=== PATIENT | female | born 1975 | race African-American/Black ===

== ENCOUNTER 2016-10-12 21:37 | Emergency (ER) | payer OTHER ==
[~2016-10-12 21:37] MED LIST: ALBU0.63 NEB; AZIT250T PO; BENZ200C39 PO; PRED20TA PO
--- NOTE | 2016-10-12 22:42 | PHYS DOC ---
Past Medical History Past Medical History: Asthma, COPD, Diabetes-Type I, High Cholesterol, Hypertension Past Surgical History: No Surgical History Alcohol Use: None Drug Use: None Adult General Chief Complaint Chief Complaint: DYSPNEA/RESPIRATOY DISTRESS HPI HPI Patient is a 41 year old female who presents with cough, wheezing, shortness of breath. Patient reports for the past 2 days she has had productive cough, has been wheezing a lot, has been feeling somewhat short of breath. Similar to prior COPD exacerbations. Patient has been using her Combivent, Symbicort, albuterol at home with insufficient relief. She denies any pain, specifically no chest discomfort. No fever. Patient does report her grandchildren have been sick. Review of Systems Review of Systems Constitutional: Denies fever or chills Eyes: Denies change in visual acuity or eye pain HENT: Denies nasal congestion or sore throat Respiratory: Productive cough, shortness of breath, wheezing Cardiovascular: Denies chest pain GI: Denies abdominal pain, nausea, vomiting, bloody stools or diarrhea : Denies dysuria or hematuria Musculoskeletal: Denies back pain or joint pain Integument: Denies rash or skin lesions Neurologic: Denies headache, focal weakness or sensory changes Current Medications Current Medications Current Medications Medications (Trade) Dose Ordered Sig/Rock Start Time Stop Time Status Last Admin Dose Admin Albuterol/ Ipratropium (Duoneb) 6 ml 1X ONCE 10/12/16 23:00 10/12/16 23:01 DC 10/12/16 23:02 6 ML Benzonatate (Tessalon Perle) 100 mg 1X ONCE 10/12/16 23:00 10/12/16 23:01 DC 10/12/16 22:53 100 MG Prednisone (Prednisone) 60 mg 1X ONCE 10/12/16 23:00 10/12/16 23:01 DC 10/12/16 22:53 60 MG Allergies Allergies Allergies Coded Allergies Type Severity Reaction Last Updated Verified sulfamethoxazole Allergy Intermediate 07/12/16 No trimethoprim Allergy Intermediate 07/12/16 No Physical Exam Physical Exam Constitutional: Well developed, well nourished, no acute distress, non-toxic appearance HENT: Normocephalic, atraumatic, bilateral external ears normal Eyes: EOMI, conjunctiva normal, no discharge Neck: Normal range of motion, no stridor Cardiovascular: Heart rate normal, regular rhythm, no murmur Lungs & Thorax: Frequent cough, diffuse expiratory wheezing Abdomen: Bowel sounds normal, soft, non-distended, no TTP Skin: Warm, dry, no erythema, no rash Extremities: No obvious deformity, no edema Neurologic: Alert and oriented X 3, no gross deficits noted Psychologic: Affect normal, judgement normal, mood normal Current Patient Data Vital Signs Vital Signs Date Time Temp Pulse Resp B/P Pulse Ox O2 Delivery O2 Flow Rate FiO2 10/12/16 23:04 96 Room Air 10/12/16 22:46 100 124/65 10/12/16 21:47 98.4 22 98.4 Lab Values Laboratory Tests Test 10/12/16 22:45 Influenza Type A Antigen Negative (NEGATIVE) Influenza Type B Antigen Negative (NEGATIVE) EKG EKG EKG (my read): sinus rhythm, rate 82, borderline LAD, intervals wnl, nonspecific ST changes Radiology/Procedures Radiology/Procedures CXR (my read): No significant change from prior. Course & Med Decision Making Course & Med Decision Making Pertinent Labs and Imaging studies reviewed. (See chart for details) Patient is 41-year-old female who presents with cough, wheezing, shortness of breath. Apparent COPD exacerbation, likely brought on by viral respiratory infection. Will obtain chest x-ray, EKG to evaluate. Steroids, Tessalon, DuoNeb' s ordered for relief of symptoms. EKG and chest x-ray results as above. Discussed results with patient, who feels her breathing is much improved after the breathing treatments. Will discharge home with prescription for steroid burst, Tessalon, Combivent and albuterol nebulizer refills (per patient request) . Given instructions follow-up and return precautions. Dragon Disclaimer Dragon Disclaimer This electronic medical record was generated, in whole or in part, using a voice recognition dictation system. Departure Departure Impression: Primary Impression: COPD exacerbation Additional Impression: Viral respiratory infection Disposition: HOME, SELF-CARE Condition: IMPROVED Referrals: UNKNOWN PCP NAME (PCP) Patient Instructions: Chronic Obstructive Pulmonary Disease Exacerbation, Upper Respiratory Infection, Adult Additional Instructions: Thank you for allowing us to provide care today in the Emergency Department. Take the provided medication as directed. Schedule a follow up appointment with your primary care doctor and your goring cutter. Return promptly to the Emergency Department if you develop any new or concerning symptoms. Scripts Benzonatate (Tessalon Perle)100 Mg Capsule1 Cap PO TID PRN COUGH #21 CAP Prov:DOMINIK GANDHI MD 10/12/16 Ipratropium/Albuterol Sulfate (Combivent Respimat Inhal)4 Gm Aer.w.adap2 Inh IH QID #1 INHALER Prov:DOMINIK GANDHI MD 10/12/16 Albuterol Sulfate (Albuterol Sulfate Neb Soln)1.25 Mg/3 Ml Vial.neb1 Vial NEB Q6HRS PRN WHEEZING #75 ML Prov:DOMINIK GANDHI MD 10/12/16 Prednisone 20 Mg [id number] Mg PO DAILY 5 Days Prov:DOMINIK GANDHI MD 10/12/16 Problem Qualifiers DOMINIK GANDHI MD Oct 12, 2016 22:42
[2016-10-12 22:46] VITALS: BP 124/65
[2016-10-12] MEDS ORDERED: PREDNISONE 20 MG TABLET PO ONE (23:00)
[2016-10-12] MEDS ORDERED: BENZONATATE 100 MG CAPSULE. PO ONE (23:00)
[2016-10-12] MEDS ORDERED: IPRATRPIUM/ALBUTEROL 0.5/2.5MG 3 ML NEBU. NEB ONE (23:00)
[2016-10-12 23:11] LABS: OBC FLU VALID
[2016-10-12] MEDS ORDERED: ALBU1.25 NEB (23:35)
[2016-10-12] MEDS ORDERED: IPRA4AER IH (23:35)
[2016-10-12] MEDS ORDERED: PRED20TA PO (23:35)
[2016-10-12] MEDS ORDERED: BENZ100C PO (23:35)
--- NOTE | 2016-10-13 06:32 | EKG ---
[facility] [address] [place] [address] Test Date: 2016-10-12 Test Time: 22:53:24 Pat Name: AJ LAM Department: Room: Gender: F Reservation Clerk: : 1975 Requested By: DOMINIK GANDHI Order Number: [id number] Reading MD: Measurements Intervals [place] Rate: 82 P: 19 FL: 126 QRS: -2 QRSD: 96 T: 18 QT: 380 QTc: 447 Interpretive Statements SINUS RHYTHM LEFTWARD AXIS INCOMPLETE RIGHT BUNDLE BRANCH BLOCK RI6.01 Unconfirmed report No previous ECG available for comparison
--- NOTE | 2016-10-13 07:47 | RAD ---
EXAM: Chest 2 views. HISTORY: Cough and wheezing. COMPARISON: 07/12/2016. FINDINGS: Frontal and lateral views of the chest are obtained. Mild opacities in the right base may indicate superimposed densities or anteriorly infiltrate. There is no pneumothorax or pleural effusion. The heart is not enlarged. IMPRESSION: 1. Mild bibasilar opacities. Correlate clinically to exclude mild right lower lobe pneumonia.
== END 2016-10-12 23:45 | disposition home or self-care (01) ==
LOC: ER 21:37
DX: J44.1 Chronic obstructive pulmonary disease with (acute) exacerbation (principal); B34.9 Viral infection, unspecified; J45.909 Unspecified asthma, uncomplicated; E10.9 Type 1 diabetes mellitus without complications; I10 Essential (primary) hypertension; E78.00 Pure hypercholesterolemia, unspecified; Z79.899 Other long term (current) drug therapy; Z88.2 Allergy status to sulfonamides; Z88.1 Allergy status to other antibiotic agents
CPT/HCPCS: 71020; 87804; 93005; 94640; 99285; J7512; J7620

== ENCOUNTER 2016-10-28 20:05 | Emergency (ER) | payer OTHER ==
[~2016-10-28 20:05] MED LIST changes: +ALBU1.25 NEB; +BENZ100C PO; +IPRA4AER IH
[2016-10-28 20:24] VITALS: BP 128/74
[2016-10-28] MEDS ORDERED: IPRATRPIUM/ALBUTEROL 0.5/2.5MG 3 ML NEBU. NEB ONE (21:00)
--- NOTE | 2016-10-28 21:19 | PHYS DOC ---
Past Medical History Past Medical History: Asthma, COPD, Diabetes-Type II, High Cholesterol, Hypertension Past Surgical History: No Surgical History Smoking: Less than 1pk/day Alcohol Use: None Drug Use: None Adult General Chief Complaint Chief Complaint: COUGH HPI HPI Patient is a 41 year old female who presents with productive cough and shortness of breath for 5 days. She also has nasal congestion and sore throat. She denies fever, ear pain, vomiting, or diarrhea. She has a history of COPD. She has been using her albuterol inhaler, Combivent, and Symbicort at home as directed. She did receive a flu shot this season. [place] [facility] [place] Review of Systems Review of Systems Constitutional: Denies fever or chills. [] Eyes: Denies change in visual acuity, redness, or eye pain. [] HENT: Denies ear pain. Reports nasal congestion and sore throat. Respiratory: Reports productive cough and shortness of breath. Cardiovascular: Denies chest pain, palpitations or edema. [] GI: Denies abdominal pain, nausea, vomiting, bloody stools or diarrhea. [] : Denies dysuria, hematuria or urinary frequency. [] Musculoskeletal: Denies back pain or joint pain. [] Integument: Denies rash or skin lesions. [] Neurologic: Denies headache, focal weakness or sensory changes. [] Endocrine: Denies polyuria or polydipsia. [] Psych: Denies anxiety or depression. [] All systems reviewed and negative unless otherwise stated in the HPI. Current Medications Current Medications Current Medications Medications (Trade) Dose Ordered Sig/[facility] Start Time Stop Time Status Last Admin Dose Admin Albuterol/ Ipratropium (Duoneb) 3 ml 1X ONCE 10/28/16 21:00 10/28/16 21:01 DC 10/28/16 21:17 3 ML Allergies Allergies Allergies Coded Allergies Type Severity Reaction Last Updated Verified sulfamethoxazole Allergy Intermediate 07/12/16 No trimethoprim Allergy Intermediate 07/12/16 No Physical Exam Physical Exam Constitutional: Well developed, well nourished, no acute distress, non-toxic appearance. [] HENT: Normocephalic, atraumatic, bilateral external ears normal, oropharynx moist, no oral exudates, nose normal. Bilateral TMs without erythema or bulging. There is no posterior pharyngeal erythema or tonsillar edema. Bilateral nasal turbinates are swollen and erythematous. Eyes: PERRLA, EOMI, conjunctiva normal, no discharge. [] Neck: Normal range of motion, no tenderness, supple, no stridor. [] Cardiovascular: Heart rate regular rhythm, no murmur [] Lungs & Thorax: There are crackles in bilateral lung bases with expiratory wheezes diffusely. No respiratory distress. Skin: Warm, dry, no erythema, no rash. [] Neurologic: Alert and oriented X 3, normal motor function, normal sensory function, no focal deficits noted. [] Psychologic: Affect normal, judgement normal, mood normal. [] Current Patient Data Vital Signs Vital Signs Date Time Temp Pulse Resp B/P Pulse Ox O2 Delivery O2 Flow Rate FiO2 10/28/16 21:20 98 Room Air 10/28/16 20:24 98.7 102 24 98.7 EKG EKG [] Radiology/Procedures Radiology/Procedures PA and lateral chest x-ray reviewed and interpreted by myself with Dr. Amaro. There are no focal infiltrates, however there is diffuse infiltrate. Course & Med Decision Making Course & Med Decision Making Pertinent Labs and Imaging studies reviewed. (See chart for details) The patient is a 38-year-old female smoker with history of COPD who presents with productive cough and shortness of breath for 5 days. On exam, there are crackles in bilateral lung bases with diffuse expiratory wheezes. The patient is not in respiratory distress. Chest x-ray shows diffuse infiltrates without evidence of pneumonia. The patient received a DuoNeb treatment in the emergency department and reported improved breathing after the treatment. Reexamination does not reveal significant change in her lung sounds after the treatment. She is discharged home with prescription for azithromycin, prednisone, and Tessalon Perles. She is instructed to continue her home inhalers. Return precautions were discussed. She verbalizes understanding and agrees with plan. Dragon Disclaimer Dragon Disclaimer This electronic medical record was generated, in whole or in part, using a voice recognition dictation system. Departure Departure Impression: Primary Impression: COPD exacerbation Disposition: 01 HOME, SELF-CARE Condition: IMPROVED Referrals: UNKNOWN PCP NAME (PCP) Patient Instructions: Chronic Obstructive Pulmonary Disease Exacerbation, Easy- to-Read Additional Instructions: Your chest x-ray did not show any definite pneumonia. Please complete all the prescribed antibiotics and steroid, even if you are feeling better. Please continue to use your home inhalers as directed. Please follow-up with your primary care doctor within the next week. Return to the emergency department if you have increased shortness of breath or other new or concerning symptoms. Scripts Benzonatate 200 Mg Capsule1 Cap PO TID #30 CAP Prov:MARIANELA GARCIA 10/28/16 Prednisone 20 Mg Vkeidx70 Mg PO DAILY 5 Days Prov:MARIANELA GARCIA 10/28/16 Azithromycin (Zithromax)250 Mg Tablet1 Pkg PO UD #6 TAB Prov:MARIANELA GARCIA 10/28/16 MARIANELA GARCIA Oct 28, 2016 21:19
[2016-10-28] MEDS ORDERED: AZIT250T PO (21:50)
[2016-10-28] MEDS ORDERED: PRED20TA PO (21:50)
[2016-10-28] MEDS ORDERED: BENZ200C39 PO (21:50)
--- NOTE | 2016-10-29 07:54 | RAD ---
Indication cough and shortness of breath. Duration of symptoms 3 days. Frontal and lateral views of the chest were obtained. Comparison is made to an examination 16 days earlier. There is interstitial prominence in the lungs much of which is likely chronic. The appearance is similar to previous exams. (Mild interstitial edema or an inflammatory process, interstitial pneumonitis, cannot be entirely excluded). There is no consolidated pneumonia significant pleural fluid collection or pneumothorax. IMPRESSION: Mild diffuse interstitial prominence. See above discussion. No focal consolidated pneumonia seen
== END 2016-10-28 22:05 | disposition home or self-care (01) ==
LOC: ER 20:05
DX: J44.1 Chronic obstructive pulmonary disease with (acute) exacerbation (principal); E11.9 Type 2 diabetes mellitus without complications; E78.00 Pure hypercholesterolemia, unspecified; I10 Essential (primary) hypertension; J45.909 Unspecified asthma, uncomplicated; F17.200 Nicotine dependence, unspecified, uncomplicated; Z88.8 Allergy status to other drugs, medicaments and biological substances; Z88.2 Allergy status to sulfonamides
CPT/HCPCS: 71020; 94250; 94640; 99284; J7620

== ENCOUNTER 2016-11-28 13:45 | Inpatient (IN) | payer OTHER ==
[~2016-11-28] VITALS: Ht 167.6 cm; Wt 127.0 kg
--- NOTE | 2016-11-28 14:23 | PHYS DOC ---
Past Medical History Past Medical History: Asthma, COPD, Diabetes-Type II, High Cholesterol, Hypertension Past Surgical History: No Surgical History Alcohol Use: None Drug Use: None Adult General Chief Complaint Chief Complaint: COUGH HPI HPI Patient is a 41 year old female, with a history of asthma and COPD who continues to smoke, presents the emergency Department today with nonproductive cough, nasal congestion and sinus pressure and mild difficulty breathing for the past 2-3 days. Patient denies fevers, chills, myalgias or arthralgias. She reports she was on azithromycin within the past 30 days as well as steroids. She denies hospitalization or foreign travel within the past 90 days. Patient states last time she used her albuterol nebulizer was 10 AM this morning. Review of Systems Review of Systems Constitutional: Denies fever or chills [] Eyes: Denies change in visual acuity, redness, or eye pain [] HENT: Denies nasal congestion or sore throat [] Respiratory: Denies cough or shortness of breath [] Cardiovascular: No additional information not addressed in HPI [] GI: Denies abdominal pain, nausea, vomiting, bloody stools or diarrhea [] : Denies dysuria or hematuria [] Musculoskeletal: Denies back pain or joint pain [] Integument: Denies rash or skin lesions [] Neurologic: Denies headache, focal weakness or sensory changes [] Endocrine: Denies polyuria or polydipsia [] Current Medications Current Medications Current Medications Medications (Trade) Dose Ordered Sig/Rock Start Time Stop Time Status Last Admin Dose Admin Albuterol Sulfate (Ventolin Neb Soln) 10 mg 1X ONCE 11/28/16 15:15 11/28/16 15:16 UNV Albuterol/ Ipratropium (Duoneb) 3 ml 1X ONCE 11/28/16 14:30 11/28/16 14:31 DC 11/28/16 14:29 3 ML Prednisone (Prednisone) 50 mg 1X ONCE 11/28/16 14:30 11/28/16 14:31 DC 11/28/16 14:40 50 MG Sodium Chloride (Normal Saline Flush) 10 ml 1X ONCE 11/28/16 15:00 11/28/16 15:01 DC Allergies Allergies Allergies Coded Allergies Type Severity Reaction Last Updated Verified sulfamethoxazole Allergy Intermediate 07/12/16 No trimethoprim Allergy Intermediate 07/12/16 No Physical Exam Physical Exam Constitutional: Well developed, well nourished, mild distress, non-toxic appearance. Patient smells of tobacco smoke. HENT: Normocephalic, atraumatic, bilateral external ears normal, oropharynx moist, no oral exudates, nasal mucosa is inflamed and with a clear, tacky rhinorrhea. Eyes: PERRLA, EOMI, conjunctiva normal, no discharge. [] Neck: Normal range of motion, no tenderness, supple, no stridor. There is no cervical lymphadenopathy. Cardiovascular:Heart rate 92 with regular rhythm, no murmur. No JVD. PMI is not displaced. Lungs & Thorax: Patient exhibits mild-mod respiratory distress without respiratory fatigue. There is no posturing or sensory muscle use. Patient has bilateral coarse inspiratory and expiratory wheezing. Oxygen saturation is 94% on room air. Abdomen: Bowel sounds normal, soft, no tenderness, no masses, no pulsatile masses. [] Skin: Warm, dry, no erythema, no rash. [] Back: No tenderness, no CVA tenderness. [] Extremities: No tenderness, no cyanosis, no clubbing, ROM intact, no edema. Neurologic: Alert and oriented X 3, normal motor function, normal sensory function, no focal deficits noted. Psychologic: Affect normal, judgement normal, mood normal. [] Current Patient Data Vital Signs Vital Signs Date Time Temp Pulse Resp B/P Pulse Ox O2 Delivery O2 Flow Rate FiO2 11/28/16 14:29 94 Room Air 11/28/16 14:08 97.9 93 22 97.9 EKG EKG [] Radiology/Procedures Radiology/Procedures [] Course & Med Decision Making Course & Med Decision Making Patient received a DuoNeb nebulizer treatment here in the emergency department. She also received 50 mg of prednisone by mouth. Upon reevaluation of this patient, she exhibited increased respiratory effort and showed evidence of overall fatigue. I discussed with the patient admission to the hospital as I'm concerned that the patient would be right back here in the emergency department within a short period time patient verbalized understanding of this and agrees. In summary, patient is a 41-year-old female who continues to smoke with a well- established history of COPD. Patient has a nebulizer at home. She's been using every 6 hours without any improvement. She has been on steroids and antibiotics within the past 30 days. Patient has a high risk for return to this emergency department, or another emergency department within the next 24 hours due to her COPD. Dragon Disclaimer Dragon Disclaimer This electronic medical record was generated, in whole or in part, using a voice recognition dictation system. Departure Departure Impression: Primary Impression: COPD exacerbation Disposition: ADMITTED INPATIENT Condition: STABLE Referrals: UNKNOWN PCP NAME (PCP) HARRIS KOHLER Nov 28, 2016 14:23
[2016-11-28] MEDS ORDERED: predniSONE 10 MG TABLET PO ONE (14:30)
[2016-11-28] MEDS ORDERED: IPRATRPIUM/ALBUTEROL 0.5/2.5MG 3 ML NEBU. NEB ONE (14:30)
[2016-11-28] MEDS ORDERED: 0.9 % SODIUM CHLORIDE 10 ML DISP.SYRIN. IV ONE (15:00)
[2016-11-28] MEDS ORDERED: ALBUTEROL SULFATE 2.5 MG/3 ML NEBU. CONT NEB ONE (15:15)
[2016-11-28] MEDS ORDERED: DEXTROSE 50% 25 GM / 50ML DISP.SYRIN. IV PRN (15:30)
[2016-11-28] MEDS ORDERED: PROMETH/CODEINE 6.25/10MG 5 ML SYRUP. PO PRN (15:30)
[2016-11-28] MEDS ORDERED: ALBUTEROL SULFATE 2.5 MG/3 ML NEBU. NEB PRN (15:30)
[2016-11-28] MEDS ORDERED: hydrALAZINE 20 MG/ML VIAL. IVP PRN (15:30)
[2016-11-28 15:35] LABS: BASO # 0.1 x10^3/uL (0.0-0.2); BASO % 1 % (0-3); EOS % 1 % (0-3); HEMATOCRIT 39.7 % (36.0-47.0); HEMOGLOBIN 13.5 g/dL (12.0-15.5); LYMPH # 4.2 x10^3/uL (1.0-4.8); LYMPH % 40 % (24-48); MEAN CORPUSCULAR HEMOGLOBIN 30 pg (25-35); MEAN CORPUSCULAR HGB CONC 34 g/dL (31-37); MEAN CORPUSCULAR VOLUME 89 fL (79-100); MONO % 7 % (0-9); NEUT % 51 % (31-73); PLATELET COUNT 311 x10^3/uL (140-400); RED BLOOD COUNT 4.48 x10^6/uL (3.50-5.40); RED CELL DISTRIBUTION WIDTH 14.3 % (11.5-14.5); WHITE BLOOD COUNT 10.5 x10^3/uL (4.0-11.0)
--- NOTE | 2016-11-28 15:36 | PDOC1 ---
History and Physical Date of Admission Date of Admission 11/28/16 Identification/Chief Complaint Chief Complaint cough, sob Problems: Source Source: Chart review, Patient History of Present Illness History of Present Illness HPI HPI Patient is a 41 year old female, with a history of asthma and COPD who continues to smoke, presents the emergency Department today with cough and sob for 2 days. Pt usually goes to [facility] for PCP, but comes to ER here every month for sob. She said her grandson is sick at home. SHe has been coughing with yellow sputum , sob for 2 days. no fever, chills, N/V, diarrhea. + chest pain with cough. She was on kapil and prednisone last month. use regular insulin only 14u daily. Past Medical History Cardiovascular: HTN Pulmonary: COPD Endocrine: Diabetes Past Surgical History Past Surgical History: No pertinent history Family History Family History: No Significant Social History Smoke: 1 pack per day ALCOHOL: occassional Drugs: None Current Problem List Problem List Problems Medical Problems: (1) COPD exacerbation Status: Acute Current Medications Current Medications Current Medications Medications (Trade) Dose Ordered Sig/Rock Start Time Stop Time Status Last Admin Dose Admin Albuterol Sulfate (Ventolin Neb Soln) 2.5 mg PRN Q2HR PRN 11/28/16 15:30 Albuterol/ Ipratropium (Duoneb) 3 ml RTQID 11/28/16 16:00 Enoxaparin Sodium (Lovenox 40mg Syringe) 40 mg DAILY 11/29/16 09:00 Famotidine (Pepcid) 20 mg BID 11/28/16 21:00 Levofloxacin/ Dextrose (LEVAQUIN 750mg PREMIX) 150 ml @ 100 mls/hr DAILY16 11/28/16 16:00 Methylprednisolone Sodium Succinate (Solu-Medrol 125mg Vial) 62.5 mg BID 11/28/16 21:00 11/28/16 21:00 DC Methylprednisolone Sodium Succinate 60 mg 60 mg TID 11/28/16 21:00 Prednisone (Prednisone) 50 mg 1X ONCE 11/28/16 14:30 11/28/16 14:31 DC 11/28/16 14:40 50 MG Sodium Chloride (Normal Saline Flush) 10 ml 1X ONCE 11/28/16 15:00 11/28/16 15:01 DC Allergies Allergies Allergies Coded Allergies Type Severity Reaction Last Updated Verified sulfamethoxazole Allergy Intermediate 07/12/16 No trimethoprim Allergy Intermediate 07/12/16 No ROS Review of System CONSTITUTIONAL: No fever or chills EYES: No recent changes SKIN: No rash or itching CARDIOVASCULAR: No chest pain, syncope, palpitations, or edema RESPIRATORY: No SOB or cough GASTROINTESTINAL: No nausea, vomiting or abdominal pain NEUROLOGICAL: No headaches or weakness ENDOCRINE: No cold or heat intolerance GENITOURINARY: No urgency or frequency of urination MUSCULOSKELETAL: No back pain or joint pain LYMPHATICS: No enlarged lymph nodes PSYCHIATRIC: No anxiety or depression Physical Exam Physical Exam GEN.: No apparent distress. Alert and oriented. HEENT: Head is normocephalic, atraumatic NECK: Supple. LUNGS: bl rhonchis with diffuse mild wheezing HEART: RRR, S1, S2 present. Peripheral pulses intact ABDOMEN: Soft, nontender. Positive bowel sounds. EXTREMITIES: Without any cyanosis. NEUROLOGIC: Normal speech, normal tone PSYCHIATRIC: Normal affect, normal mood. SKIN: No ulcerations Vitals Vitals Vital Signs Date Time Temp Pulse Resp B/P Pulse Ox O2 Delivery O2 Flow Rate FiO2 11/28/16 15:28 96 Room Air 11/28/16 14:08 97.9 93 22 97.9 VTE Prophylaxis Ordered VTE Prophylaxis Devices: Yes VTE Pharmacological Prophylaxi: Yes Assessment/Plan Assessment/Plan 1. copd exacerbation 2. bronchitis 3. dm2 4. htn 5.hld 6. tobacossim 7. morbid obesity plan: pulm consult labs , cxr pending add solumedrol tid, levaquin, duoneb check sputum cx need home meds add levemir 20u qhs, aspart 6u tid, ssi for now dvt, gi ppx ALYSIA LEONARD MD Nov 28, 2016 15:36
[2016-11-28] MEDS ORDERED: ONDANSETRON PF 4 MG/2 ML VIAL. IV PRN (15:45)
[2016-11-28] MEDS ORDERED: ACETAMINOPHEN 325 MG TABLET. PO PRN (15:45)
[2016-11-28] MEDS ORDERED: traMADol 50 MG TABLET PO PRN (15:45)
[2016-11-28 15:47] LABS: CALCIUM 8.6 mg/dL (8.5-10.1); CREATININE 0.9 mg/dL (0.6-1.0); GFR 82.7; POTASSIUM 3.5 mmol/L (3.5-5.1)
[2016-11-28 15:53] LABS: ALBUMIN 3.1 g/dL (3.4-5.0); ALBUMIN/GLOBULIN RATIO 0.8 (1.0-1.7); TOTAL BILIRUBIN 0.3 mg/dL (0.2-1.0); TOTAL PROTEIN 6.8 g/dL (6.4-8.2)
[2016-11-28] MEDS: INSULIN ASPART 300 UNITS/3 ML INSULN.PEN SQ SCH ×2 (16:30→17:00)
[2016-11-28 17:10] VITALS: BP 129/62
[2016-11-28] MEDS ORDERED: IPRATRPIUM/ALBUTEROL 0.5/2.5MG 3 ML NEBU. NEB SCH (18:00)
[2016-11-28] MEDS ORDERED: METF-620 PO (18:43)
[2016-11-28] MEDS ORDERED: AMLO10TA2 PO (18:43)
[2016-11-28] MEDS ORDERED: INSU100I27 SQ (18:43)
[2016-11-28] MEDS ORDERED: LISI-338 PO (18:43)
[2016-11-28] MEDS ORDERED: POTA10TA12 PO (18:43)
[2016-11-28] MEDS ORDERED: FURO20TA3 PO (18:43)
--- NOTE | 2016-11-28 18:56 | ACF ---
Admission Forms Criteria COPD Clinical Indications for Admission to Inpatient Care (Place 'X' for any and all applicable criteria): Admission is indicated for ANY ONE of the following (1)(2)(3): [X]I. Acute exacerbation by high-risk comorbidity (e.g., pneumonia, dysrhythmia, heart failure, pleural effusion, pneumothorax) or severe underlying COPD (e.g., steroid dependent) [ ]II. Inpatient admission required rather than observation care (see Chronic Obstructive Pulmonary Disease: Observation Care) because of ANY ONE of the following: [ ]a) New or pre-existing signs or symptoms of COPD (eg, dyspnea or Tachypnea at rest or with minimal activity) that persist despite outpatient and observation care treatment [ ]b) New-onset hypoxemia (room air SaO2 less than 90%, PO2 less than 60 mm Hg (8.0 kPa)) that persists despite outpatient and observation care treatment [ ]c) Worsening of pre-existing hypoxemia (eg, new or increased requirement for supplemental oxygen to maintain oxygenation at baseline level) that persists despite outpatient and observation care treatment, with oxygen treatment needs performable only in acute inpatient setting [ ]d) Hypercarbia (PCO2 greater than 40 mm Hg (5.3 kPa))-induced respiratory acidosis (pH less than 7.35) that persists despite outpatient and observation care treatment [ ]e) Supplemental oxygen or respiratory treatments for over 24 hours that are performable only in acute inpatient setting [ ]f) Chest tube placement with active evacuation (e.g., suction, drainage) (5) [ ]g) Other condition, treatment or monitoring requiring inpatient admission [ ]III. Planned invasive surgical or diagnostic procedures requiring acute- care hospitalization [ ]IV. Acute respiratory failure (e.g., uncompensated hypercarbia, severe hypoxemia) [ ]V. Severe comorbid condition (e.g., severe steroid myopathy, acute vertebral fracture) that has acutely worsened pulmonary function [ ]. Confusion state, lethargy, obtundation, stupor or coma Extended stay beyond goal length of stay may be needed for (31)(32): [ ]a ) Respiratory Failure. [ ]b) Severe or persisting hypoxemia or hypercarbia [ ]c) Severe or persistent dyspnea [ ]d) Comorbidities (e.g. chronic heart failure, atrial fibrillation with rapid response, pneumonia) [ ]e) Malnutrition The original [facility] content created by [facility] has been revised. The portions of the content which have been revised are identified through the use of italic text or in bold, and [facility] has neither reviewed nor approved the modified material. All other unmodified content is copyright [facility]. Please see references footnoted in the original [facility] edition 2016 Admission Criteria Met?: Yes LAURIE MCKEON Nov 28, 2016 18:56
[2016-11-28] MEDS: IPRATRPIUM/ALBUTEROL 0.5/2.5MG 3 ML NEBU. NEB SCH (20:41)
[2016-11-28] MEDS ORDERED: methylPREDNISolone SOD SUCC PF 125 MG/2 ML VIAL. IV SCH (21:00)
[2016-11-28] MEDS ORDERED: INSULIN DETEMIR 300 UNITS/3 ML INSULN.PEN. SQ SCH (21:00)
[2016-11-28] MEDS: FAMOTIDINE 20 MG TABLET. PO SCH (21:12)
[2016-11-28] MEDS: methylPREDNISolone SOD SUCC PF 125 MG/2 ML VIAL. IV SCH (21:18)
[2016-11-28 23:23] VITALS: BP 129/66
[2016-11-29 03:58] LABS: BASO % 0 % (0-3); EOS % 0 % (0-3); LYMPH # 1.2 x10^3/uL (1.0-4.8); LYMPH % 10 % (24-48); MEAN CORPUSCULAR HEMOGLOBIN 30 pg (25-35); MEAN CORPUSCULAR HGB CONC 33 g/dL (31-37); MEAN CORPUSCULAR VOLUME 90 fL (79-100); MONO % 1 % (0-9); NEUT % 89 % (31-73); PLATELET COUNT 299 x10^3/uL (140-400); RED BLOOD COUNT 4.34 x10^6/uL (3.50-5.40); RED CELL DISTRIBUTION WIDTH 14.2 % (11.5-14.5); WHITE BLOOD COUNT 12.5 x10^3/uL (4.0-11.0)
[2016-11-29 04:12] LABS: CALCIUM 8.9 mg/dL (8.5-10.1); CREATININE 1.1 mg/dL (0.6-1.0); GFR 65.6; POTASSIUM 4.6 mmol/L (3.5-5.1)
[2016-11-29 05:17] LABS: % EOS 1 % (0-5)
[2016-11-29 05:18] LABS: PLT ESTIMATE ADEQUATE (ADEQUATE)
[2016-11-29] MEDS: IPRATRPIUM/ALBUTEROL 0.5/2.5MG 3 ML NEBU. NEB SCH ×2 (06:18→11:55)
[2016-11-29 07:31] VITALS: BP 120/63
[2016-11-29] MEDS: FAMOTIDINE 20 MG TABLET. PO SCH (08:02)
[2016-11-29] MEDS: methylPREDNISolone SOD SUCC PF 125 MG/2 ML VIAL. IV SCH (08:03)
[2016-11-29] MEDS: INSULIN ASPART 300 UNITS/3 ML INSULN.PEN SQ SCH ×6 (08:09→11:59)
[2016-11-29] MEDS ORDERED: DEXTROSE 50% 25 GM / 50ML DISP.SYRIN. IV PRN (09:00)
[2016-11-29] MEDS ORDERED: FUROSEMIDE 20 MG TABLET PO SCH (09:00)
[2016-11-29] MEDS ORDERED: ENOXAPARIN 40 MG/0.4 ML SYRINGE. SQ SCH (09:00)
[2016-11-29] MEDS ORDERED: amLODIPine BESYLATE 10 MG TABLET PO SCH (09:00)
[2016-11-29] MEDS: BENZONATATE 100 MG CAPSULE. PO SCH ×2 (09:00→10:31)
[2016-11-29] MEDS ORDERED: POTASSIUM CHLORIDE 10 MEQ TABLET.ER. PO SCH (09:00)
[2016-11-29] MEDS ORDERED: LISINOPRIL 5 MG TABLET. PO SCH (09:00)
--- NOTE | 2016-11-29 09:12 | PDOC ---
Provider Note Provider Note DICTATED BEAR ELLIS MD Nov 29, 2016 09:12
--- NOTE | 2016-11-29 09:26 | CONS ---
DATE OF CONSULTATION: ATTENDING PHYSICIAN: Dr. Wheeler. REASON FOR CONSULTATION: Dyspnea. HISTORY OF PRESENT ILLNESS: The patient is a 41-year-old morbidly obese -L[place] female who has a history of tobaccoism since age 13 less than 1 pack per day and history of asthma as well. She came to the Emergency Department with complaint of shortness of breath, wheezing and also cough for the last few days. She usually goes to ____. The patient's grandson was sick at home. She normally does not use his oxygen. No history of sarcoidosis, no history of deep vein thrombosis or pulmonary embolism. She has been hospitalized for further care for COPD exacerbation. Chest x-ray was reviewed by me and shows some parenchymal perihilar infiltrates, probably scarring as it was seen previously as well. PAST MEDICAL HISTORY: Hypertension, COPD with ongoing tobaccoism and diabetes. PAST SURGICAL HISTORY: No recent surgery. SOCIAL HISTORY: Has been smoking less than 1 pack per day since the age 13. ALLERGIES: SULFAMETHOXAZOLE AND TRIMETHOPRIM. MEDICATIONS: All reviewed as listed in the [facility] including Lovenox for DVT prophylaxis, steroids, DuoNeb, and antibiotics. REVIEW OF SYSTEMS: Twelve-point systems obtained, pertinent positives discussed in history of present illness, otherwise noncontributory. All systems that were negative were reviewed as well. FAMILY HISTORY: Noncontributory to lungs. PHYSICAL EXAMINATION: VITAL SIGNS: Stable, afebrile, pulse ox 94% on room air. NECK: Supple. LUNGS: With faint bilateral expiratory wheezes. CARDIOVASCULAR: Regular rate and rhythm. ABDOMEN: Soft, obese. EXTREMITIES: With no pitting edema. LABORATORY DATA: Reviewed. White cell count on admission 10.5, hemoglobin 13.5 and platelets are 311. BUN 15, creatinine 1.1. IMPRESSION: 1. Dyspnea secondary to acute exacerbation of chronic obstructive pulmonary disease triggered by acute bronchitis. 2. Abnormal chest x-ray with some perihilar infiltrate versus scarring. We will obtain noncontrast CT chest for further evaluation. 3. Acute bronchitis. 4. Ongoing tobaccoism. RECOMMENDATIONS: 1. Continue with present DuoNebs. 2. Continue on IV steroids. 3. Antibiotics. 4. Smoking cessation counseling provided. 5. Noncontrast CT chest for further evaluation of parenchymal scarring versus infiltrate. BEAR ELLIS MD DR: BRIAN/diana JOB#: [id number] / [id number] LISA
--- NOTE | 2016-11-29 09:49 | RAD ---
PA and lateral chest radiographs 11/28/2016 Clinical history: Cough and shortness of breath. PA and lateral digital radiographs of the chest were obtained. Comparison study is dated 10/28/2016. The cardiac silhouette is borderline enlarged. The thoracic aorta is minimally tortuous. Prominence of the pulmonary vasculature and interstitial markings of both lungs is seen suggesting mild to moderate CHF. Clinical correlation is recommended. No focal area of consolidation is seen. No pneumothorax or pleural effusion is noted. The osseous structures are unchanged. Impression: Findings are seen suggesting mild to moderate CHF. Clinical correlation is recommended.
[2016-11-29 11:39] VITALS: BP 116/62
--- NOTE | 2016-11-29 12:09 | RAD ---
CT scan of the chest without contrast 11/29/2016 Clinical history: Cough and shortness of breath. Left perihilar prominence seen on chest radiograph. Technique: Unenhanced, contiguous, 5 mm axial sections were obtained through the chest and upper abdomen. Findings: Comparison is made to PA and lateral chest radiographs dated 11/28/2016. The heart is mildly enlarged. Mild atherosclerotic plaque formation is seen involving the thoracic aorta the thoracic aorta is mildly tortuous but tapers normally. No definite hilar or mediastinal lymphadenopathy is seen. No axillary lymphadenopathy is noted. Small patchy areas of subsegmental atelectasis and/or infiltrate EW seen scattered throughout both lungs. No pulmonary mass is seen. No pneumothorax or pleural effusion is noted. Images through the upper abdomen demonstrate decreased attenuation of the liver parenchyma consistent with mild fatty infiltration. Degenerative changes are seen throughout the thoracic spine. Impression: 1. Mild cardiomegaly. 2. No pulmonary mass is seen. 3. Patchy small areas of subsegmental atelectasis and/or infiltrate are seen scattered throughout both lungs.
[2016-11-29] MEDS ORDERED: METH4TAB2 PO (12:32)
--- NOTE | 2016-11-29 12:37 | PDOC3 ---
Discharge Summary Visit Information Date of Admission: Nov 28, 2016 Date of Discharge: Nov 29, 2016 Admitting Diagnosis Comment: 1. copd exacerbation 2. bronchitis 3. dm2 4. htn 5.hld 6. tobacossim 7. morbid obesity Final Diagnosis Problems Medical Problems: (1) COPD exacerbation Status: Acute Brief Hospital Course Allergies Allergies Coded Allergies Type Severity Reaction Last Updated Verified sulfamethoxazole Allergy Intermediate 11/29/16 Yes trimethoprim Allergy Intermediate 11/29/16 Yes Vital Signs Vital Signs Date Time Temp Pulse Resp B/P Pulse Ox O2 Delivery O2 Flow Rate FiO2 11/29/16 11:55 Room Air 11/29/16 11:39 98.1 82 18 116/62 97 98.1 Lab Results Laboratory Tests Test 11/28/16 15:20 11/28/16 16:52 11/28/16 21:42 11/29/16 03:11 White Blood Count 10.5x10^3/uL (4.0-11.0) 12.5x10^3/uL (4.0-11.0) Red Blood Count 4.48x10^6/uL (3.50-5.40) 4.34x10^6/uL (3.50-5.40) Hemoglobin 13.5g/dL (12.0-15.5) 13.0g/dL (12.0-15.5) Hematocrit 39.7% (36.0-47.0) 39.0% (36.0-47.0) Mean Corpuscular Volume 89fL (79-100) 90fL (79-100) Mean Corpuscular Hemoglobin 30pg (25-35) 30pg (25-35) Mean Corpuscular Hemoglobin Concent 34g/dL (31-37) 33g/dL (31-37) Red Cell Distribution Width 14.3% (11.5-14.5) 14.2% (11.5-14.5) Platelet Count 311x10^3/uL (140-400) 299x10^3/uL (140-400) Neutrophils (%) (Auto) 51% (31-73) 89% (31-73) Lymphocytes (%) (Auto) 40% (24-48) 10% (24-48) Monocytes (%) (Auto) 7% (0-9) 1% (0-9) Eosinophils (%) (Auto) 1% (0-3) 0% (0-3) Basophils (%) (Auto) 1% (0-3) 0% (0-3) Neutrophils # (Auto) 5.3x10^3uL (1.8-7.7) 11.1x10^3uL (1.8-7.7) Lymphocytes # (Auto) 4.2x10^3/uL (1.0-4.8) 1.2x10^3/uL (1.0-4.8) Monocytes # (Auto) 0.7x10^3/uL (0.0-1.1) 0.1x10^3/uL (0.0-1.1) Eosinophils # (Auto) 0.1x10^3/uL (0.0-0.7) 0.0x10^3/uL (0.0-0.7) Basophils # (Auto) 0.1x10^3/uL (0.0-0.2) 0.0x10^3/uL (0.0-0.2) Sodium Level 142mmol/L (136-145) 139mmol/L (136-145) Potassium Level 3.5mmol/L (3.5-5.1) 4.6mmol/L (3.5-5.1) Chloride Level 104mmol/L (98-107) 102mmol/L (98-107) Carbon Dioxide Level 32mmol/L (21-32) 28mmol/L (21-32) Anion Gap 6 (6-14) 9 (6-14) Blood Urea Nitrogen 13mg/dL (7-20) 15mg/dL (7-20) Creatinine 0.9mg/dL (0.6-1.0) 1.1mg/dL (0.6-1.0) Estimated GFR (Cockcroft-Gault) 82.7 65.6 BUN/Creatinine Ratio 14 (6-20) Glucose Level 140mg/dL (70-99) 395mg/dL (70-99) Calcium Level 8.6mg/dL (8.5-10.1) 8.9mg/dL (8.5-10.1) Total Bilirubin 0.3mg/dL (0.2-1.0) Aspartate Amino Transf (AST/SGOT) 12U/L (15-37) Alanine Aminotransferase (ALT/SGPT) 17U/L (14-59) Alkaline Phosphatase 81U/L (46-116) Total Protein 6.8g/dL (6.4-8.2) Albumin 3.1g/dL (3.4-5.0) Albumin/Globulin Ratio 0.8 (1.0-1.7) Glucose (Fingerstick) 193mg/dL (70-99) 430mg/dL (70-99) Segmented Neutrophils % 84% (35-66) Band Neutrophils % 1% (0-9) Lymphocytes % 14% (24-48) Eosinophils % 1% (0-5) Platelet Estimate Adequate (ADEQUATE) Test 11/29/16 07:30 11/29/16 11:47 Glucose (Fingerstick) 274mg/dL (70-99) 394mg/dL (70-99) Laboratory Tests Test 11/28/16 15:20 11/28/16 16:52 11/28/16 21:42 11/29/16 03:11 White Blood Count 10.5x10^3/uL (4.0-11.0) 12.5x10^3/uL (4.0-11.0) Red Blood Count 4.48x10^6/uL (3.50-5.40) 4.34x10^6/uL (3.50-5.40) Hemoglobin 13.5g/dL (12.0-15.5) 13.0g/dL (12.0-15.5) Hematocrit 39.7% (36.0-47.0) 39.0% (36.0-47.0) Mean Corpuscular Volume 89fL (79-100) 90fL (79-100) Mean Corpuscular Hemoglobin 30pg (25-35) 30pg (25-35) Mean Corpuscular Hemoglobin Concent 34g/dL (31-37) 33g/dL (31-37) Red Cell Distribution Width 14.3% (11.5-14.5) 14.2% (11.5-14.5) Platelet Count 311x10^3/uL (140-400) 299x10^3/uL (140-400) Neutrophils (%) (Auto) 51% (31-73) 89% (31-73) Lymphocytes (%) (Auto) 40% (24-48) 10% (24-48) Monocytes (%) (Auto) 7% (0-9) 1% (0-9) Eosinophils (%) (Auto) 1% (0-3) 0% (0-3) Basophils (%) (Auto) 1% (0-3) 0% (0-3) Neutrophils # (Auto) 5.3x10^3uL (1.8-7.7) 11.1x10^3uL (1.8-7.7) Lymphocytes # (Auto) 4.2x10^3/uL (1.0-4.8) 1.2x10^3/uL (1.0-4.8) Monocytes # (Auto) 0.7x10^3/uL (0.0-1.1) 0.1x10^3/uL (0.0-1.1) Eosinophils # (Auto) 0.1x10^3/uL (0.0-0.7) 0.0x10^3/uL (0.0-0.7) Basophils # (Auto) 0.1x10^3/uL (0.0-0.2) 0.0x10^3/uL (0.0-0.2) Sodium Level 142mmol/L (136-145) 139mmol/L (136-145) Potassium Level 3.5mmol/L (3.5-5.1) 4.6mmol/L (3.5-5.1) Chloride Level 104mmol/L (98-107) 102mmol/L (98-107) Carbon Dioxide Level 32mmol/L (21-32) 28mmol/L (21-32) Anion Gap 6 (6-14) 9 (6-14) Blood Urea Nitrogen 13mg/dL (7-20) 15mg/dL (7-20) Creatinine 0.9mg/dL (0.6-1.0) 1.1mg/dL (0.6-1.0) Estimated GFR (Cockcroft-Gault) 82.7 65.6 BUN/Creatinine Ratio 14 (6-20) Glucose Level 140mg/dL (70-99) 395mg/dL (70-99) Calcium Level 8.6mg/dL (8.5-10.1) 8.9mg/dL (8.5-10.1) Total Bilirubin 0.3mg/dL (0.2-1.0) Aspartate Amino Transf (AST/SGOT) 12U/L (15-37) Alanine Aminotransferase (ALT/SGPT) 17U/L (14-59) Alkaline Phosphatase 81U/L (46-116) Total Protein 6.8g/dL (6.4-8.2) Albumin 3.1g/dL (3.4-5.0) Albumin/Globulin Ratio 0.8 (1.0-1.7) Glucose (Fingerstick) 193mg/dL (70-99) 430mg/dL (70-99) Segmented Neutrophils % 84% (35-66) Band Neutrophils % 1% (0-9) Lymphocytes % 14% (24-48) Eosinophils % 1% (0-5) Platelet Estimate Adequate (ADEQUATE) Test 11/29/16 07:30 11/29/16 11:47 Glucose (Fingerstick) 274mg/dL (70-99) 394mg/dL (70-99) Brief Hospital Course Ms. Rea is a 41 old obese AA female smoker, admitted for HISTOLOGY TECHNICIAN exacerbation, CT chest: Impression: 1. Mild cardiomegaly. 2. No pulmonary mass is seen. 3. Patchy small areas of subsegmental atelectasis and/or infiltrate are seen scattered throughout both lungs. Wants to go home, no wheezing appreciated today Counselled on smoking Wishes a diflucan PO x 1 before she leaves to avoid yeast infection (episode in past bec of antibiotics and steroids) Duc RN Pt seen and examined DispO; home Proc; none Consults: pulmo Discharge Information Condition at Discharge: Improved, Stable Disposition/Orders: D/C to Home Scheduled Amlodipine Besylate (Amlodipine Besylate) 10 MG PO DAILY (Reported) Azithromycin (Zithromax) 250 MG PO DAILY Azithromycin (Zithromax) 1 PKG PO UD Benzonatate (Benzonatate) 1 CAP PO TID Benzonatate (Benzonatate) 1 CAP PO TID Furosemide (Furosemide) 20 MG PO DAILY (Reported) Insulin Detemir (Levemir Flextouch) 14 UNIT SQ HS (Reported) Ipratropium/Albuterol Sulfate (Combivent Respimat Inhal) 2 INH IH QID Lisinopril (Lisinopril) 5 MG PO DAILY (Reported) Metformin Hcl (Metformin Hcl) 1,000 MG PO DAILYWBKFT (Reported) Potassium Chloride (Potassium Chloride) 10 MEQ PO DAILY (Reported) Prednisone (Prednisone) 40 MG PO DAILY Prednisone (Prednisone) 40 MG PO DAILY Prednisone (Prednisone) 60 MG PO DAILY Prednisone (Prednisone) 40 MG PO DAILY Scheduled PRN Albuterol Sulfate (Albuterol Sulfate Neb Soln) 0.63 MG NEB PRN Q4HRS PRN PRN WHEEZING Albuterol Sulfate (Albuterol Sulfate Neb Soln) 1 VIAL NEB Q6HRS PRN PRN WHEEZING Benzonatate (Tessalon Perle) 1 CAP PO TID PRN PRN COUGH ANJELICA METZ MD Nov 29, 2016 12:37
[2016-11-29] MEDS ORDERED: LEVO500T38 PO (12:43)
[2016-11-29] MEDS ORDERED: FLUCONAZOLE 100 MG TABLET. PO ONE (12:45)
[2016-11-29] MEDS ORDERED: INSULIN DETEMIR 300 UNITS/3 ML INSULN.PEN. SQ SCH (21:00)
== END 2016-11-29 13:00 | disposition home or self-care (01) | DRG 191 ==
LOC: ER 13:45 → 6 SOUTH 14:09
PROVIDERS: ADMIT Internal Medicine; ATTEND Internal Medicine
DX: J44.1 Chronic obstructive pulmonary disease with (acute) exacerbation (principal); Z68.42 Body mass index [BMI] 45.0-49.9, adult; J98.11 Atelectasis; J44.0 Chronic obstructive pulmonary disease with (acute) lower respiratory infection; E66.01 Morbid (severe) obesity due to excess calories; E78.00 Pure hypercholesterolemia, unspecified; E78.5 Hyperlipidemia, unspecified; F17.210 Nicotine dependence, cigarettes, uncomplicated; I11.9 Hypertensive heart disease without heart failure; E11.9 Type 2 diabetes mellitus without complications; J20.9 Acute bronchitis, unspecified; Z88.8 Allergy status to other drugs, medicaments and biological substances; Z71.6 Tobacco abuse counseling; Z79.899 Other long term (current) drug therapy; Z88.2 Allergy status to sulfonamides
CPT/HCPCS: 36415; 71020; 71250; 80048; 80053; 82947; 85007; 85027; 87070; 87186; 87205; 94640; 94644; 94760; 96374; J1650; J1815; J1956; J2930; J7512; J7620; 99285-25

== ENCOUNTER 2017-03-20 13:21 | Emergency (ER) | payer OTHER ==
[~2017-03-20] VITALS: Ht 167.6 cm; Wt 128.4 kg
[~2017-03-20 13:21] MED LIST changes: +AMLO10TA2 PO; -BENZ200C39 PO; +BENZ200C47 PO; +FURO20TA3 PO; +INSU100I27 SQ; +LEVO500T59 PO; +LISI-338 PO; +METF-620 PO; +METH4TAB2 PO; +POTA10TA12 PO
[2017-03-20 13:35] VITALS: BP 148/78
[2017-03-20] MEDS ORDERED: ALBUTEROL SULFATE 2.5 MG/3 ML NEBU. ONE (13:57)
[2017-03-20] MEDS ORDERED: IPRATRPIUM/ALBUTEROL 0.5/2.5MG 3 ML NEBU. NEB ONE (14:00)
--- NOTE | 2017-03-20 14:06 | PHYS DOC ---
Past Medical History Past Medical History: Asthma, COPD, Diabetes-Type II, High Cholesterol, Hypertension Past Surgical History: No Surgical History Alcohol Use: None Drug Use: None Adult General Chief Complaint Chief Complaint: COUGH HPI HPI Patient is a 41 year old female presents to the emergency department stating that she's had a few days of cough with wheezing. She states that she did use her albuterol inhaler with minimal relief. She denies the cough being productive. She denies any fever, chills or any nausea vomiting. Patient is unsure when her last time was that she was on antibiotics or steroids. Review of Systems Review of Systems Constitutional: Denies fever or chills [] Eyes: Denies change in visual acuity, redness, or eye pain [] HENT: Denies nasal congestion or sore throat [] Respiratory: Complaining of cough and wheezing Cardiovascular: No additional information not addressed in HPI [] GI: Denies abdominal pain, nausea, vomiting, bloody stools or diarrhea [] : Denies dysuria or hematuria [] Musculoskeletal: Denies back pain or joint pain [] Integument: Denies rash or skin lesions [] Neurologic: Denies headache, focal weakness or sensory changes [] Endocrine: Denies polyuria or polydipsia [] Current Medications Current Medications Current Medications Medications (Trade) Dose Ordered Sig/Rock Start Time Stop Time Status Last Admin Dose Admin Albuterol Sulfate (Ventolin Neb Soln) 2.5 mg 1X ONCE 03/20/17 14:15 03/20/17 14:16 DC 03/20/17 14:31 2.5 MG Albuterol/ Ipratropium (Duoneb) 3 ml 1X ONCE 03/20/17 14:00 03/20/17 14:02 DC 03/20/17 14:04 3 ML Prednisone (Prednisone) 40 mg 1X ONCE 03/20/17 14:15 03/20/17 14:16 DC 03/20/17 14:12 40 MG Allergies Allergies Allergies Coded Allergies Type Severity Reaction Last Updated Verified sulfamethoxazole Allergy Intermediate 11/29/16 Yes trimethoprim Allergy Intermediate 11/29/16 Yes Physical Exam Physical Exam Constitutional: Well developed, well nourished, no acute distress, non-toxic appearance. [] HENT: Normocephalic, atraumatic, bilateral external ears normal, oropharynx moist, no oral exudates, nose normal. [] Eyes: PERRLA, EOMI, conjunctiva normal, no discharge. [] Neck: Normal range of motion, no tenderness, supple, no stridor. [] Cardiovascular:Heart rate regular rhythm, no murmur [] Lungs & Thorax: Bilateral breath sounds wheezes noted throughout anteriorly and posteriorly Skin: Warm, dry, no erythema, no rash. [] Back: No tenderness Extremities: No tenderness, no cyanosis, no clubbing, ROM intact, no edema. [] Neurologic: Alert and oriented X 3, normal motor function, normal sensory function, no focal deficits noted. [] Psychologic: Affect normal, judgement normal, mood normal. [] Current Patient Data Vital Signs Vital Signs Date Time Temp Pulse Resp B/P (MAP) Pulse Ox O2 Delivery O2 Flow Rate FiO2 03/20/17 14:25 96 Room Air 03/20/17 13:35 98.6 94 20 98.6 EKG EKG [] Radiology/Procedures Radiology/Procedures [] Course & Med Decision Making Course & Med Decision Making Pertinent Labs and Imaging studies reviewed. (See chart for details) Patient was provided with respiratory treatment and prednisone here in the emergency department. She was also provided with an albuterol treatment here in the emergency department as well. Patient's with decreased wheezing with better breath sounds noted. Patient be discharged home with recommendations to use her inhaler as needed. She'll be provided with a prescription for prednisone with recommendations to follow-up with primary care physician in the next week. Signs and symptoms to return back to emergency department provided. Patient agrees with discharge instructions, treatment regimens and follow-up recommendations. All questions and concerns answered at patient's bedside. [] Dragon Disclaimer Dragon Disclaimer This electronic medical record was generated, in whole or in part, using a voice recognition dictation system. Departure Departure Impression: Primary Impression: Asthma exacerbation Disposition: 01 HOME, SELF-CARE Condition: STABLE Referrals: NON,STAFF (PCP) Patient Instructions: Asthma, Adult, [id number] Additional Instructions: Activity as tolerated. Medications as prescribed. Use your albuterol inhaler as needed every 4-6 hours. Follow-up with your primary care physician in the next week. Return back to emergency prior signs symptoms of become worse. Scripts Prednisone (PREDNISONE) 20 Mg Tablet 40 MG PO DAILY, #14 TAB Prov: JOSE CHAVEZ APRN 03/20/17 JOSE CHAVEZ APRN Mar 20, 2017 14:06
[2017-03-20] MEDS ORDERED: predniSONE 20 MG TABLET PO ONE (14:15)
[2017-03-20] MEDS ORDERED: ALBUTEROL SULFATE 2.5 MG/3 ML NEBU. NEB ONE (14:15)
[2017-03-20] MEDS ORDERED: PRED20TA PO (15:12)
== END 2017-03-20 15:19 | disposition home or self-care (01) ==
LOC: ER 13:21
DX: J45.901 Unspecified asthma with (acute) exacerbation (principal); J44.9 Chronic obstructive pulmonary disease, unspecified; E78.00 Pure hypercholesterolemia, unspecified; I10 Essential (primary) hypertension; E11.9 Type 2 diabetes mellitus without complications; Z88.2 Allergy status to sulfonamides
CPT/HCPCS: 94250; 94640; 99284; J7512; J7613; J7620

== ENCOUNTER 2017-05-29 18:30 | Emergency (ER) | payer OTHER ==
--- NOTE | 2017-05-29 18:54 | PHYS DOC ---
Past Medical History Past Medical History: Asthma, COPD, Diabetes-Type II, High Cholesterol, Hypertension Past Surgical History: No Surgical History Alcohol Use: None Drug Use: None Adult General Chief Complaint Chief Complaint: ASTHMA HPI HPI Patient is a 41 year old female with a history of diabetes and asthma presents the ED complaining of cough 4 days. Patient complains of wheezing, cough and rhinorrhea. States the symptoms have been worsening since Wednesday. Patient states at home she takes symbicort and combivent. Sick contacts at home. Denies chest pain, dizziness, difficulty swallowing, weakness, nausea/vomiting, weakness, fever or abdominal pain. Review of Systems Review of Systems Constitutional: Denies fever or chills [] Eyes: Denies change in visual acuity, redness, or eye pain [] HENT: Denies nasal congestion or sore throat [] Respiratory: Complains of cough. Denies shortness of breath. [] Cardiovascular: No additional information not addressed in HPI [] GI: Denies abdominal pain, nausea, vomiting, bloody stools or diarrhea [] : Denies dysuria or hematuria [] Musculoskeletal: Denies back pain or joint pain [] Integument: Denies rash or skin lesions [] Neurologic: Denies headache, focal weakness or sensory changes [] Endocrine: Denies polyuria or polydipsia [] Current Medications Current Medications Current Medications Medications (Trade) Dose Ordered Sig/Rock Start Time Stop Time Status Last Admin Dose Admin Albuterol/ Ipratropium (Duoneb) 3 ml 1X ONCE 05/29/17 19:45 05/29/17 19:46 DC 05/29/17 19:40 3 ML Methylprednisolone Sodium Succinate (SOLU-Medrol 125MG VIAL) 125 mg 1X ONCE 05/29/17 19:00 05/29/17 19:01 DC 05/29/17 19:25 125 MG Allergies Allergies Allergies Coded Allergies Type Severity Reaction Last Updated Verified sulfamethoxazole Allergy Intermediate 11/29/16 Yes trimethoprim Allergy Intermediate 11/29/16 Yes Physical Exam Physical Exam Constitutional: Well developed, well nourished, no acute distress, non-toxic appearance. [] HENT: Normocephalic, atraumatic, bilateral external ears normal, oropharynx moist, no oral exudates, nose normal. [] Eyes: PERRLA, EOMI, conjunctiva normal, no discharge. [] Neck: Normal range of motion, no tenderness, supple, no stridor. [] Cardiovascular:Heart rate regular rhythm, no murmur [] Lungs & Thorax: Bilateral breath sounds. MILD WHEEZING BILATERALLY.[] Abdomen: Bowel sounds normal, soft, no tenderness, no masses, no pulsatile masses. [] Skin: Warm, dry, no erythema, no rash. [] Back: No tenderness, no CVA tenderness. [] Extremities: No tenderness, no cyanosis, no clubbing, ROM intact, no edema. [] Neurologic: Alert and oriented X 3, normal motor function, normal sensory function, no focal deficits noted. [] Psychologic: Affect normal, judgement normal, mood normal. [] Current Patient Data Vital Signs Vital Signs Date Time Temp Pulse Resp B/P (MAP) Pulse Ox O2 Delivery O2 Flow Rate FiO2 05/29/17 19:55 98 18 94 Room Air 05/29/17 18:59 98.5 98.5 EKG EKG [] Radiology/Procedures Radiology/Procedures [] Course & Med Decision Making Course & Med Decision Making Pertinent Labs and Imaging studies reviewed. (See chart for details) []Discussed imaging findings with patient. Patient improved after breathing treatments. States she is feeling much better. Offered admission to patient. Patient refused. Will discharge with Gerry-Abdirizak prednisone outpatient (patient states she has taken in the past to relief asthma symptoms). Patient takes metformin and insulin on a sliding scale for her diabetes. Discussed the importance of tight glycemic control. Patient states she checks her blood sugar multiple times a day. Patient states she has a rescue inhaler at home. Takes her Combivent and Symbicort. States she'll follow up with her PCP early next week. Discussed reasons to return to the ED. Patient understands and agrees with plan. Dragon Disclaimer Dragon Disclaimer This electronic medical record was generated, in whole or in part, using a voice recognition dictation system. Departure Departure Impression: Primary Impression: Asthma exacerbation Additional Impression: Bronchitis Disposition: 01 HOME, SELF-CARE Condition: IMPROVED Referrals: NO PCP (PCP) ROSALIE GOMEZ MD Patient Instructions: Acute Bronchitis, Asthma, Adult Scripts Azithromycin (AZITHROMYCIN TABLET) 250 Mg Tablet 1 PKG PO UD, #6 TAB Prov: TAYLOR RUTLEDGE 05/29/17 Prednisone (PREDNISONE) 20 Mg Tablet 40 MG PO DAILY for 5 Days, TAB Prov: MILDENBERGER,TAYLOR PA 05/29/17 Problem Qualifiers TAYLOR RUTLEDGE May 29, 2017 18:53
[2017-05-29 18:59] VITALS: BP 151/68
[2017-05-29] MEDS ORDERED: IPRATRPIUM/ALBUTEROL 0.5/2.5MG 3 ML NEBU. NEB ONE ×2 (19:00→19:45)
[2017-05-29] MEDS ORDERED: methylPREDNISolone SOD SUCC PF 125 MG/2 ML VIAL. IM ONE (19:00)
[2017-05-29] MEDS ORDERED: PRED20TA PO (19:52)
[2017-05-29] MEDS ORDERED: AZIT250T6 PO (19:52)
--- NOTE | 2017-05-30 08:22 | RAD ---
PA and lateral chest radiographs 05/29/2017 Clinical history: Shortness of breath and cough for one day. PA and lateral digital radiographs of the chest were obtained. Comparison study is dated 11/28/2016. The cardiac silhouette is mildly enlarged. The thoracic aorta is minimally tortuous. Prominence of the pulmonary vasculature is seen. No area of consolidation is noted. No pneumothorax or pleural effusion is seen. The osseous structures are unchanged. Impression: No area of consolidation is seen.
== END 2017-05-29 20:04 | disposition home or self-care (01) ==
LOC: ER 18:33
DX: J45.901 Unspecified asthma with (acute) exacerbation (principal); E11.9 Type 2 diabetes mellitus without complications; E78.00 Pure hypercholesterolemia, unspecified; I10 Essential (primary) hypertension; J44.9 Chronic obstructive pulmonary disease, unspecified; Z88.2 Allergy status to sulfonamides; Z88.1 Allergy status to other antibiotic agents
CPT/HCPCS: 71020; 94640; 96372; 99284; J2930; J7620

== ENCOUNTER 2017-10-07 12:29 | Emergency (ER) | payer OTHER ==
[2017-10-07] MEDS ORDERED: ALBUTEROL SULFATE 2.5 MG/3 ML NEBU. (12:55)
[2017-10-07] MEDS: IV NORMAL SALINE 1000ML BAG 1,000 ML IV (12:56)
[2017-10-07] MEDS: IPRATRPIUM/ALBUTEROL 0.5/2.5MG 3 ML NEBU. NEB ×2 (12:58→13:16)
[2017-10-07] MEDS ORDERED: 0.9 % SODIUM CHLORIDE 10 ML DISP.SYRIN. IV (13:00)
[2017-10-07] MEDS: ALBUTEROL SULFATE 2.5 MG/3 ML NEBU. CONT NEB (13:17)
[2017-10-07 13:31] LABS: ADD MAN DIFF? NO
[2017-10-07 13:33] LABS: BASO # 0.1 x10^3/uL (0.0-0.2); BASO % 1 % (0-3); EOS # 0.2 x10^3/uL (0.0-0.7); EOS % 3 % (0-3); HEMOGLOBIN 13.4 g/dL (12.0-15.5); LYMPH # 3.5 x10^3/uL (1.0-4.8); LYMPH % 46 % (24-48); MEAN CORPUSCULAR HEMOGLOBIN 30 pg (25-35); MEAN CORPUSCULAR HGB CONC 34 g/dL (31-37); MEAN CORPUSCULAR VOLUME 89 fL (79-100); MONO # 0.5 x10^3/uL (0.0-1.1); MONO % 6 % (0-9); NEUT # 3.4 x10^3uL (1.8-7.7); NEUT % 44 % (31-73); PLATELET COUNT 310 x10^3/uL (140-400); WHITE BLOOD COUNT 7.6 x10^3/uL (4.0-11.0)
[2017-10-07] MEDS: methylPREDNISolone SOD SUCC PF 125 MG/2 ML VIAL. IV (13:36)
[2017-10-07 13:46] LABS: ANION GAP 6 (6-14); BLOOD UREA NITROGEN 7 mg/dL (7-20); CALCIUM 8.9 mg/dL (8.5-10.1); CARBON DIOXIDE 30 mmol/L (21-32); CHLORIDE 106 mmol/L (98-107); CREATININE 0.8 mg/dL (0.6-1.0); GFR 94.3; GLUCOSE 104 mg/dL (70-99); POTASSIUM 3.8 mmol/L (3.5-5.1); SODIUM 142 mmol/L (136-145)
[2017-10-07 13:52] LABS: ALBUMIN 3.2 g/dL (3.4-5.0); ALK PHOS 102 U/L (46-116); ALT (SGPT) 20 U/L (14-59); AST (SGOT) 16 U/L (15-37); DIRECT BILIRUBIN 0.1 mg/dL (0.0-0.2); TOTAL BILIRUBIN 0.3 mg/dL (0.2-1.0); TOTAL PROTEIN 7.2 g/dL (6.4-8.2)
[2017-10-07 13:57] LABS: TROPONINI < 0.017 ng/mL (0.000-0.055)
[2017-10-07 13:58] LABS: NT-PRO BNP 16 pg/mL (0-124)
[2017-10-07 14:06] LABS: INFLUENZA A PATIENT NEGATIVE (NEGATIVE); INFLUENZA B PATIENT NEGATIVE (NEGATIVE); OBC FLU VALID
== END 2017-10-07 14:48 | disposition home or self-care (01) ==
LOC: ER 14:48
DX: J45.901 Unspecified asthma with (acute) exacerbation (principal); J44.9 Chronic obstructive pulmonary disease, unspecified; E78.00 Pure hypercholesterolemia, unspecified; E11.9 Type 2 diabetes mellitus without complications; I10 Essential (primary) hypertension; F17.210 Nicotine dependence, cigarettes, uncomplicated; Z88.2 Allergy status to sulfonamides; Z88.1 Allergy status to other antibiotic agents
CPT/HCPCS: 36415; 71046; 80048; 80076; 83880; 84484; 85025; 87804; 87804-59; 93005; 94640; 94644; 96361; 96374; 99285-25; J2930; J7030; J7613; J7620

== ENCOUNTER 2017-12-13 20:32 | Emergency (ER) | payer OTHER ==
[2017-12-13] MEDS: predniSONE 10 MG TABLET PO (21:01)
[2017-12-13] MEDS: ALBUTEROL SULFATE 2.5 MG/3 ML NEBU. NEB (21:02)
[2017-12-13] MEDS: IPRATRPIUM/ALBUTEROL 0.5/2.5MG 3 ML NEBU. NEB (21:25)
== END 2017-12-13 22:10 | disposition home or self-care (01) ==
LOC: ER 20:32
DX: J45.901 Unspecified asthma with (acute) exacerbation (principal); J40 Bronchitis, not specified as acute or chronic; J02.9 Acute pharyngitis, unspecified; E78.00 Pure hypercholesterolemia, unspecified; E11.9 Type 2 diabetes mellitus without complications; J44.9 Chronic obstructive pulmonary disease, unspecified; I10 Essential (primary) hypertension; Z88.2 Allergy status to sulfonamides; Z88.1 Allergy status to other antibiotic agents
CPT/HCPCS: 94640; 99284-25; J7512; J7613; J7620

== ENCOUNTER 2018-01-18 20:05 | Emergency (ER) | payer OTHER ==
[2018-01-18 20:39] LABS: POC GLUCOSE 405 mg/dL (70-99)
[2018-01-18 20:46] LABS: ADD MAN DIFF? NO
[2018-01-18] MEDS: IV NORMAL SALINE 1000ML BAG 1,000 ML IV (20:47)
[2018-01-18 20:48] LABS: BASO # 0.2 x10^3/uL (0.0-0.2); BASO % 1 % (0-3); EOS # 0.1 x10^3/uL (0.0-0.7); EOS % 0 % (0-3); HEMATOCRIT 41.4 % (36.0-47.0); HEMOGLOBIN 14.3 g/dL (12.0-15.5); LYMPH # 4.6 x10^3/uL (1.0-4.8); LYMPH % 34 % (24-48); MEAN CORPUSCULAR HEMOGLOBIN 31 pg (25-35); MEAN CORPUSCULAR HGB CONC 35 g/dL (31-37); MEAN CORPUSCULAR VOLUME 89 fL (79-100); MONO # 0.7 x10^3/uL (0.0-1.1); MONO % 5 % (0-9); NEUT % 59 % (31-73); PLATELET COUNT 313 x10^3/uL (140-400); RED BLOOD COUNT 4.67 x10^6/uL (3.50-5.40); WHITE BLOOD COUNT 13.5 x10^3/uL (4.0-11.0)
[2018-01-18] MEDS: IPRATRPIUM/ALBUTEROL 0.5/2.5MG 3 ML NEBU. NEB (20:50)
[2018-01-18 20:57] LABS: ANION GAP 9 (6-14); BLOOD UREA NITROGEN 20 mg/dL (7-20); BUN/CREATININE RATIO 17 (6-20); CARBON DIOXIDE 29 mmol/L (21-32); CHLORIDE 97 mmol/L (98-107); CREATININE 1.2 mg/dL (0.6-1.0); GFR 59.1; GLUCOSE 392 mg/dL (70-99); POTASSIUM 3.6 mmol/L (3.5-5.1); SODIUM 135 mmol/L (136-145)
[2018-01-18 21:04] LABS: ALBUMIN/GLOBULIN RATIO 0.8 (1.0-1.7); ALK PHOS 145 U/L (46-116); ALT (SGPT) 21 U/L (14-59); AST (SGOT) 12 U/L (15-37); TOTAL PROTEIN 6.9 g/dL (6.4-8.2)
[2018-01-18 21:09] LABS: TOTAL BILIRUBIN < 0.1 mg/dL (0.2-1.0)
[2018-01-18] MEDS: DOXYCYCLINE HYCLATE 100 MG TABLET PO (21:37)
[2018-01-18 21:39] LABS: BILIRUBIN,URINE NEGATIVE (NEG); CLARITY,URINE CLEAR; COLOR,URINE YELLOW; GLUCOSE,URINE >=1000 mg/dL (NEG); NITRITE,URINE NEGATIVE (NEG); PH,URINE 5.5; PROTEIN,URINE NEGATIVE (NEG-TRACE); UROBILINOGEN,URINE 0.2 mg/dL (0.2 mg/dL)
[2018-01-18 21:39] LABS: URINE HCG POC HCG NEGATIVE (Negative)
[2018-01-18] MEDS: INSULIN REGULAR 100 UNIT/ML 3ML VIAL. IV (21:40)
[2018-01-18 21:50] LABS: BACTERIA,URINE FEW /HPF (0-FEW); SQUAMOUS EPITHELIAL CELL,UR MOD /LPF
[2018-01-18] MEDS: HYDROcodone/APAP 5/325MG 1 TAB TABLET PO (22:26)
[2018-01-18] MEDS: POTASSIUM CHLORIDE 20 MEQ/15 ML ORAL LIQUID. PO (22:27)
== END 2018-01-18 22:49 | disposition home or self-care (01) ==
LOC: ER 20:05
DX: E11.65 Type 2 diabetes mellitus with hyperglycemia (principal); J44.9 Chronic obstructive pulmonary disease, unspecified; F17.200 Nicotine dependence, unspecified, uncomplicated; Z88.1 Allergy status to other antibiotic agents; Z88.2 Allergy status to sulfonamides
CPT/HCPCS: 36415; 71045; 80053; 81001; 81025; 82962; 84702; 85025; 94640; 96361; 96374; 99285-25; J1815; J7030; J7620

== ENCOUNTER 2018-06-26 22:25 | Emergency (ER) | payer OTHER ==
[~2018-06-26] VITALS: Ht 167.6 cm; Wt 136.1 kg
[2018-06-26 22:25] VITALS: BP 143/63
[~2018-06-26 22:25] MED LIST changes: -AMLO10TA2 PO; +AMLO10TA6 PO; +AZIT250T6 PO; +DOXY100C14 PO; +DOXY100C2 PO; +DOXY100T PO; +FLUC150T PO; +GUAI-108 PO; +LACT1CAP19 PO; +LEVO750T31 PO; -METF-620 PO; +METF10007 PO; +PRED50TA PO; +PROAIR HFA8.5 GM INH
[2018-06-26] MEDS ORDERED: predniSONE 20 MG TABLET PO ONE (22:45)
[2018-06-26] MEDS ORDERED: FLUC150T PO (22:53)
[2018-06-26] MEDS ORDERED: DOXY100C2 PO (22:53)
[2018-06-26] MEDS ORDERED: PRED-299 PO (22:53)
--- NOTE | 2018-06-27 06:15 | PHYS DOC ---
Past Medical History Past Medical History: Asthma, Bronchitis, COPD, Diabetes-Type II, Hypertension Past Surgical History: No Surgical History Additional Information: 2 ppd Alcohol Use: None Drug Use: None Adult General Chief Complaint Chief Complaint: Congestion HPI HPI Patient is a 42 year old Afro-[place]e [place] female with history of COPD, asthma, type 2 diabetes and for use presents with nasal congestion, rhinorrhea, chest congestion with shortness of breath or wheezing. Symptoms progressed over the past 3 days the point where the patient has had to cut back on her cigarette smoking due to her shortness of breath. Patient has been using her inhaler 2-3 times daily with some relief.No fever chills, nausea vomiting sweats. Reports chest tightness but denies chest pain. No leg pain or swelling. [] Review of Systems Review of Systems Constitutional: Denies fever or chills [] Eyes: Denies change in visual acuity, redness, or eye pain [] HENT: Denies nasal congestion or sore throat [] Respiratory: Denies cough or shortness of breath [] Cardiovascular: No additional information not addressed in HPI [] GI: Denies abdominal pain, nausea, vomiting, bloody stools or diarrhea [] : Denies dysuria or hematuria [] Musculoskeletal: Denies back pain or joint pain [] Integument: Denies rash or skin lesions [] Neurologic: Denies headache, focal weakness or sensory changes [] Endocrine: Denies polyuria or polydipsia [] All other systems were reviewed and found to be within normal limits, except as documented in this note. Current Medications Current Medications Current Medications Medications (Trade) Dose Ordered Sig/[facility] Start Time Stop Time Status Last Admin Dose Admin Prednisone (Prednisone) 60 mg 1X ONCE 06/26/18 22:45 06/26/18 23:05 DC 06/26/18 23:02 60 MG Allergies Allergies Allergies Coded Allergies Type Severity Reaction Last Updated Verified sulfamethoxazole Allergy Intermediate 10/07/17 Yes trimethoprim Allergy Intermediate 10/07/17 Yes Physical Exam Physical Exam Constitutional: Well developed, well nourished, no acute distress, non-toxic appearance. [] HENT: Normocephalic, atraumatic, bilateral external ears normal, oropharynx moist, no oral exudates, nose ashen, rhinorrhea. [] Eyes: PERRLA, EOMI, conjunctiva normal, no discharge. [] Neck: Normal range of motion, no tenderness, supple, no stridor. [] Cardiovascular:Heart rate regular rhythm, no murmur [] Lungs & Thorax: His secretions nonlabored, diminished musical breath sounds bilaterally with occasional wheezing. [] Abdomen: Bowel sounds normal, soft, no tenderness, no masses, no pulsatile masses. [] Skin: Warm, dry, no erythema, no rash. [] Back: No tenderness, no CVA tenderness. [] Extremities: No tenderness, no cyanosis, no clubbing, ROM intact, no edema. [] Neurologic: Alert and oriented X 3, normal motor function, normal sensory function, no focal deficits noted. [] Psychologic: Affect normal, judgement normal, mood normal. [] Current Patient Data Vital Signs Vital Signs Date Time Temp Pulse Resp B/P (MAP) Pulse Ox O2 Delivery O2 Flow Rate FiO2 06/26/18 22:25 98.4 108 24 143/63 (89) 96 Room Air 98.4 EKG EKG [] Radiology/Procedures Radiology/Procedures [] Course & Med Decision Making Course & Med Decision Making Pertinent Labs and Imaging studies reviewed. (See chart for details) [Treatment provided with clinical improvement increased air movement and decrease rhonchi on repeat evaluation. Recommend continued supportive care, PCP follow-up. Return precautions reviewed. Patient verbalizes understanding agreement discharge instructions prior to departure.] Dragon Disclaimer Dragon Disclaimer This electronic medical record was generated, in whole or in part, using a voice recognition dictation system. Departure Departure Impression: Primary Impression: Acute bronchitis Additional Impression: COPD exacerbation Disposition: 01 HOME, SELF-CARE Condition: GOOD Patient Instructions: Bronchitis, [id number], Chronic Obstructive Pulmonary Disease Exacerbation, [id number] Additional Instructions: Please take prednisone and antibiotics as directed and continue home inhaler use. Follow up with your PCP in 2-3 days for re-evaluation. Return to the ED if new or worsening symptoms Scripts Fluconazole (DIFLUCAN) 150 Mg Tablet 1 TAB PO ONCE, #1 TAB 1 Refill Prov: HERMAN BARRETT DO 06/26/18 Doxycycline Hyclate (DOXYCYCLINE HYCLATE) 100 Mg Capsule 1 CAP PO BID, #14 CAP Prov: HERMAN BARRETT DO 06/26/18 Prednisone (Deltasone) 20 Mg Tablet 60 MG PO DAILY for 7 Days, #21 TAB Prov: HERMAN BARRETT DO 06/26/18 Problem Qualifiers HERMAN BARRETT DO Jun 27, 2018 06:15
== END 2018-06-26 22:50 | disposition home or self-care (01) ==
LOC: ER 22:25
DX: J44.1 Chronic obstructive pulmonary disease with (acute) exacerbation (principal); J20.9 Acute bronchitis, unspecified; J44.0 Chronic obstructive pulmonary disease with (acute) lower respiratory infection; E11.9 Type 2 diabetes mellitus without complications; I10 Essential (primary) hypertension; F17.200 Nicotine dependence, unspecified, uncomplicated; Z88.2 Allergy status to sulfonamides; Z88.8 Allergy status to other drugs, medicaments and biological substances
CPT/HCPCS: 99283; J7512

== ENCOUNTER 2018-08-26 17:27 | Inpatient (IN) | payer SELFPAY ==
[~2018-08-26] VITALS: Ht 165.1 cm; Wt 128.4 kg
[~2018-08-26 17:27] MED LIST changes: +ALBU2.5V8 INH; -AMLO10TA6 PO; +AMLO10TA8 PO; +PRED-299 PO; -PROAIR HFA8.5 GM INH
--- NOTE | 2018-08-26 17:51 | PHYS DOC ---
Past Medical History Past Medical History: Asthma, Bronchitis, COPD, Diabetes-Type II, Hypertension Past Surgical History: No Surgical History Alcohol Use: None Drug Use: None Adult General Chief Complaint Chief Complaint: COUGH HPI HPI Patient is a 43 year old F who presents with cough, congestion and body aches. She has known asthma. She is noted to be short of breath with walking to the room and difficulty talking in full sentences. RT was notified for breathing treatment. Steroids were discussed and with pt's diabetes, I inquired about her blood sugars and she reports earlier today it was 130mg /dL. Review of Systems Review of Systems Constitutional: Denies fever or chills HENT: Reports nasal congestion. Respiratory: Reports cough, shortness of breath and wheezing. Cardiovascular: Denies chest pain GI: Denies abdominal pain, nausea, vomiting, bloody stools or diarrhea Musculoskeletal: Denies back pain or joint pain Integument: Denies rash or skin lesions Neurologic: Denies headache, focal weakness or sensory changes Endocrine: Denies polyuria or polydipsia All other systems were reviewed and found to be within normal limits, except as documented in this note. Current Medications Current Medications Current Medications Medications (Trade) Dose Ordered Sig/Rock Start Time Stop Time Status Last Admin Dose Admin Albuterol Sulfate (Ventolin Neb Soln) 2.5 mg 1X ONCE 08/26/18 19:00 08/26/18 19:01 DC 08/26/18 20:05 2.5 MG Azithromycin 250 ml @ 250 mls/hr 1X ONCE 08/26/18 20:00 08/26/18 20:59 08/26/18 20:00 250 MLS/HR Ceftriaxone Sodium (Rocephin) 1 gm 1X ONCE 08/26/18 20:00 08/26/18 20:01 DC 08/26/18 20:29 1 GM Ondansetron HCl (Zofran) 4 mg 1X ONCE 08/26/18 21:00 08/26/18 21:01 Prednisone (Prednisone) 60 mg 1X ONCE 08/26/18 18:00 08/26/18 18:01 DC 08/26/18 18:07 60 MG Allergies Allergies Allergies Coded Allergies Type Severity Reaction Last Updated Verified sulfamethoxazole Allergy Intermediate 10/07/17 Yes trimethoprim Allergy Intermediate 10/07/17 Yes Physical Exam Physical Exam Constitutional: Well developed, well nourished. Uncomfortable. HENT: Normocephalic, atraumatic, bilateral external ears normal, oropharynx moist, no oral exudates, nose normal. Neck: Normal range of motion, no tenderness, supple, no stridor. Cardiovascular:Heart rate regular rhythm, no murmur Lungs & Thorax: Mod respiratory distress noted. Diffuse wheezing, decreased breath sounds, tight, short inspiration. Abdomen: Bowel sounds normal, soft, no tenderness, no masses, no pulsatile masses. Skin: Warm, dry, no erythema, no rash. Back: No tenderness, no CVA tenderness. Extremities: No tenderness, no cyanosis, no clubbing, ROM intact, no edema. Neurologic: Alert and oriented X 3, normal motor function, normal sensory function, no focal deficits noted. Psychologic: Affect normal, judgement normal, mood normal. Current Patient Data Vital Signs Vital Signs Date Time Temp Pulse Resp B/P (MAP) Pulse Ox O2 Delivery O2 Flow Rate FiO2 08/26/18 20:05 Room Air 08/26/18 17:40 99.0 105 22 163/96 (118) 94 99.0 Lab Values Laboratory Tests Test 08/26/18 20:10 White Blood Count 9.7 x10^3/uL (4.0-11.0) Red Blood Count 4.55 x10^6/uL (3.50-5.40) Hemoglobin 13.8 g/dL (12.0-15.5) Hematocrit 41.0 % (36.0-47.0) Mean Corpuscular Volume 90 fL (79-100) Mean Corpuscular Hemoglobin 30 pg (25-35) Mean Corpuscular Hemoglobin Concent 34 g/dL (31-37) Red Cell Distribution Width 13.7 % (11.5-14.5) Platelet Count 291 x10^3/uL (140-400) Neutrophils (%) (Auto) 78 % (31-73) H Lymphocytes (%) (Auto) 18 % (24-48) L Monocytes (%) (Auto) 3 % (0-9) Eosinophils (%) (Auto) 1 % (0-3) Basophils (%) (Auto) 1 % (0-3) Neutrophils # (Auto) 7.6 x10^3uL (1.8-7.7) Lymphocytes # (Auto) 1.7 x10^3/uL (1.0-4.8) Monocytes # (Auto) 0.3 x10^3/uL (0.0-1.1) Eosinophils # (Auto) 0.1 x10^3/uL (0.0-0.7) Basophils # (Auto) 0.1 x10^3/uL (0.0-0.2) Sodium Level 139 mmol/L (136-145) Potassium Level 4.5 mmol/L (3.5-5.1) Chloride Level 100 mmol/L (98-107) Carbon Dioxide Level 31 mmol/L (21-32) Anion Gap 8 (6-14) Blood Urea Nitrogen 6 mg/dL (7-20) L Creatinine 0.6 mg/dL (0.6-1.0) Estimated GFR (Cockcroft-Gault) 130.8 BUN/Creatinine Ratio 10 (6-20) Glucose Level 292 mg/dL (70-99) H Lactic Acid Level 0.8 mmol/L (0.4-2.0) Calcium Level 9.4 mg/dL (8.5-10.1) Total Bilirubin 0.4 mg/dL (0.2-1.0) Aspartate Amino Transferase (AST) 21 U/L (15-37) Alanine Aminotransferase (ALT) 20 U/L (14-59) Alkaline Phosphatase 121 U/L (46-116) H XV-Ttb-P-Type Natriuretic Peptide 56 pg/mL (0-124) Total Protein 6.9 g/dL (6.4-8.2) Albumin 3.2 g/dL (3.4-5.0) L Albumin/Globulin Ratio 0.9 (1.0-1.7) L Laboratory Tests 08/26/18 20:10 Laboratory Tests 08/26/18 20:10 EKG EKG [] Radiology/Procedures Radiology/Procedures CXR reviewed by Dr. Trejo initially. Concern for B lower infiltrates. Course & Med Decision Making Course & Med Decision Making Discussed admission to hospital for further breathing treatments and abx for possible pneumonia and initially pt did not want to stay. I asked if we could at least draw blood. Blood drawn was done and actually reassuring, however, when I went in to talk with her about results she was again wheezing and uncomfortable and had agreed to admission. Covered with Rocephin and Azithromycin for community acquired pneumonia. Dragon Disclaimer Dragon Disclaimer This electronic medical record was generated, in whole or in part, using a voice recognition dictation system. Departure Departure Impression: Primary Impression: COPD exacerbation Additional Impression: Viral respiratory infection Disposition: ADMITTED INPATIENT Admitting Physician: Xie. Galo Condition: IMPROVED Referrals: UNKNOWN PCP NAME (PCP) Problem Qualifiers KENIA LYNNE Aug 26, 2018 17:51
[2018-08-26] MEDS ORDERED: ALBUTEROL SULFATE 2.5 MG/3 ML NEBU. NEB ONE ×2 (18:00→19:00)
[2018-08-26] MEDS ORDERED: predniSONE 20 MG TABLET PO ONE (18:00)
[2018-08-26] MEDS ORDERED: AZITHRMYCN 500MG IVPB FOR OMNI 250 ML IV ONE (20:00)
[2018-08-26] MEDS ORDERED: cefTRIAXone IV Push 1 GM VIAL. IVP ONE (20:00)
[2018-08-26 20:28] LABS: BASO # 0.1 x10^3/uL (0.0-0.2); BASO % 1 % (0-3); EOS # 0.1 x10^3/uL (0.0-0.7); EOS % 1 % (0-3); HEMOGLOBIN 13.8 g/dL (12.0-15.5); LYMPH # 1.7 x10^3/uL (1.0-4.8); LYMPH % 18 % (24-48); MEAN CORPUSCULAR HEMOGLOBIN 30 pg (25-35); MEAN CORPUSCULAR HGB CONC 34 g/dL (31-37); MEAN CORPUSCULAR VOLUME 90 fL (79-100); MONO # 0.3 x10^3/uL (0.0-1.1); MONO % 3 % (0-9); NEUT # 7.6 x10^3uL (1.8-7.7); NEUT % 78 % (31-73); PLATELET COUNT 291 x10^3/uL (140-400); RED BLOOD COUNT 4.55 x10^6/uL (3.50-5.40); RED CELL DISTRIBUTION WIDTH 13.7 % (11.5-14.5); WHITE BLOOD COUNT 9.7 x10^3/uL (4.0-11.0)
[2018-08-26 20:37] LABS: CALCIUM 9.4 mg/dL (8.5-10.1); CREATININE 0.6 mg/dL (0.6-1.0); GFR 130.8; POTASSIUM 4.5 mmol/L (3.5-5.1)
[2018-08-26 20:42] LABS: ALBUMIN 3.2 g/dL (3.4-5.0); ALBUMIN/GLOBULIN RATIO 0.9 (1.0-1.7); TOTAL BILIRUBIN 0.4 mg/dL (0.2-1.0); TOTAL PROTEIN 6.9 g/dL (6.4-8.2)
[2018-08-26] MEDS ORDERED: ONDANSETRON PF 4 MG/2 ML VIAL. IM ONE (21:00)
[2018-08-26 21:33] VITALS: BP 140/77
--- NOTE | 2018-08-26 21:38 | RAD ---
CHEST PA LATERAL History: Cough and short of breath x a week. Comparison: None. Heart size: Stable Steffany/mediastinum: Within normal limits Lungs: Bilateral infiltrates are identified, predominantly interstitial. No dense lobar consolidation. There is mild vascular congestion. Pleura: No evidence of pleural effusion. Pneumothorax: None visualized Bones: Regional skeleton appears grossly intact. Miscellaneous: None Impression: Mild congestive changes with bilateral interstitial edema or infiltrate. Electronically signed by: Riaz Shetty MD (08/26/2018 9:34 PM) [facility]
--- NOTE | 2018-08-26 21:40 | NUR ---
ADMISSION NOTE Pt admitted to room 663 via WC from ER. Pt is A/Ox4, given call light and instructed on use. Pt is up ad rosie, steady on her feet. Admission assessment and history done at this time. Pt denies any pain or SOA. Pt wants to stay in the recliner. Pt is also refusing to wear cafeteria monitor, even after explaining use and need. Pt states there's nothing wrong with my heart. Reviewed pts home meds and placed in computer. Pt given admission packet. Pt denies any needs other than her night medications, which Dr. Wheeler will be paged for. Will monitor.
[2018-08-26] MEDS: guaiFENesin/CODEINE 100mg/10mg 5 ML LIQUID PO PRN (21:44)
[2018-08-26] MEDS ORDERED: METF500T16 PO (21:49)
[2018-08-26] MEDS ORDERED: BUDE10.2 IH (21:49)
[2018-08-26] MEDS ORDERED: FAMO-63 PO (22:11)
[2018-08-26] MEDS ORDERED: ALBUTEROL SULFATE 2.5 MG/3 ML NEBU. INH PRN (22:15)
[2018-08-26] MEDS ORDERED: PANT20TA2 PO (22:26)
[2018-08-26] MEDS ORDERED: ALBUTEROL SULFATE 2.5 MG/3 ML NEBU. NEB PRN (22:30)
[2018-08-26] MEDS ORDERED: ONDANSETRON PF 4 MG/2 ML VIAL. IV PRN (22:30)
[2018-08-26] MEDS ORDERED: ACETAMINOPHEN 325 MG TABLET. PO PRN (22:30)
[2018-08-26] MEDS ORDERED: DEXTROSE 50% 25 GM / 50ML DISP.SYRIN. IV PRN (22:30)
[2018-08-26] MEDS ORDERED: FAMOTIDINE 20 MG TABLET. PO SCH (22:30)
[2018-08-26] MEDS ORDERED: NON FORMULARY ITEM (Metformin Hcl 500 MG) PO SCH (22:30)
[2018-08-26 23:00] VITALS: BP 119/68
[2018-08-26] MEDS: PANTOPRAZOLE 40 MG TABLET.DR. PO SCH (23:00)
[2018-08-26] MEDS ORDERED: INSULIN GLARGINE 300 UNITS/3 ML INSULN.PEN. SQ ONE (23:00)
[2018-08-26] MEDS ORDERED: INSULIN LISPRO 300 UNITS/3 ML INSULN.PEN. SQ ONE (23:00)
[2018-08-26] MEDS: metFORMIN 500 MG TABLET PO SCH (23:00)
[2018-08-26 23:28] LABS: BILIRUBIN,URINE NEGATIVE (NEG); CLARITY,URINE CLEAR; COLOR,URINE YELLOW; NITRITE,URINE NEGATIVE (NEG); PROTEIN,URINE NEGATIVE (NEG-TRACE)
[2018-08-26 23:50] LABS: RBC,URINE 0 /HPF (0-2); WBC,URINE 0 /HPF (0-4)
[2018-08-26 23:51] LABS: BACTERIA,URINE FEW /HPF (0-FEW); SQUAMOUS EPITHELIAL CELL,UR OCC /LPF
[2018-08-27 03:00] VITALS: BP 135/77
[2018-08-27] MEDS: guaiFENesin/CODEINE 100mg/10mg 5 ML LIQUID PO PRN ×2 (06:49→17:26)
[2018-08-27 07:00] VITALS: BP 135/66
[2018-08-27] MEDS ORDERED: metFORMIN 500 MG TABLET PO SCH (08:00)
[2018-08-27] MEDS: IPRATRPIUM/ALBUTEROL 0.5/2.5MG 3 ML NEBU. NEB SCH ×4 (08:02→19:56)
[2018-08-27] MEDS: BUDESONIDE 0.5 MG/2 ML NEBU. NEB SCH ×2 (08:02→19:57)
[2018-08-27] MEDS: FUROSEMIDE 20 MG TABLET PO SCH (09:13)
[2018-08-27] MEDS: LISINOPRIL 5 MG TABLET. PO SCH (09:14)
[2018-08-27] MEDS: amLODIPine BESYLATE 10 MG TABLET PO SCH (09:14)
[2018-08-27] MEDS: metFORMIN 500 MG TABLET PO SCH ×2 (09:15→17:26)
--- NOTE | 2018-08-27 09:32 | PDOC ---
Provider Note Provider Note [id number] copd a ae acute bronchitis see orders. NICK VASQUEZ MD Aug 27, 2018 09:32
[2018-08-27 11:00] VITALS: BP 131/63
[2018-08-27] MEDS: INSULIN LISPRO 300 UNITS/3 ML INSULN.PEN. SQ SCH ×3 (12:00→17:29)
[2018-08-27] MEDS: methylPREDNISolone SOD SUCC PF 40 MG/ML VIAL. IV SCH ×2 (12:05→19:59)
[2018-08-27 12:53] LABS: INFLUENZA A PATIENT NEGATIVE (NEGATIVE); INFLUENZA B PATIENT NEGATIVE (NEGATIVE)
[2018-08-27 15:00] VITALS: BP 134/66
[2018-08-27] MEDS ORDERED: INSULIN LISPRO 300 UNITS/3 ML INSULN.PEN. SQ ONE (18:00)
--- NOTE | 2018-08-27 18:31 | CONS ---
DATE OF CONSULTATION: I was asked to see this 43-year-old lady for acute exacerbation of COPD. HISTORY OF PRESENT ILLNESS: She has history of 30 pack a year smoking, continues to smoke about half pack per day. She has had increased cough with yellow sputum production and wheezing for the past few days. She has nasal congestion, but denies gastroesophageal reflux symptoms or diarrhea. She has snoring, has not had a sleep study. PAST MEDICAL HISTORY: Diabetes mellitus, hypertension, COPD. ALLERGIES: BACTRIM. MEDICATIONS: She is currently on Rocephin, azithromycin, DuoNeb, lisinopril, Lasix, Norvasc, insulin, metformin and Protonix. SOCIAL HISTORY: History of [id number] smoking, continues to smoke about half pack per day. FAMILY HISTORY: There is no history of lung disease. REVIEW OF SYSTEMS: As mentioned as above, other systems otherwise negative. PHYSICAL EXAMINATION: GENERAL: This is an obese lady. VITAL SIGNS: Her O2 saturation is 98%, respiratory rate 20, heart rate 87, blood pressure 135/66, temperature 98.3. HEENT: Normocephalic, atraumatic. Pupils equal, round, reactive to light. There is shallow oropharynx. Nose is clear. NECK: There is no JVD, lymphadenopathy or thyromegaly. CARDIOVASCULAR: Regular rate and rhythm. CHEST: Inspection is normal. LUNGS: There is end-expiratory wheezing bilaterally. Percussion is within normal limit. ABDOMEN: Soft and obese. Bowel sounds are good. There is no mass. EXTREMITIES: There is no edema. LYMPHATICS: There is no lymphadenopathy. NEUROLOGIC: Alert and oriented x 3. SKIN: Warm. LABORATORY DATA: I reviewed the following lab data: Chest x-ray shows increased interstitial marking, cardiomegaly. WBC 9.7, hemoglobin 13.8, platelets 291. Sodium 139, potassium 4.5, chloride 100, CO2 of 31, BUN 6, creatinine 0.6. Lactic acid 0.8. BNP 56. IMPRESSION: 1. Cough secondary to acute exacerbation of chronic obstructive pulmonary disease, acute bronchitis versus others. 2. Acute exacerbation of chronic obstructive pulmonary disease. 3. Acute bronchitis. 4. Tobacco habituation. 5. Snoring, obesity, probable obstructive sleep apnea-hypopnea syndrome. 6. Diabetes mellitus. 7. Hypertension. PLAN AND RECOMMENDATIONS: 1. Titrate FiO2 to keep O2 saturation 92%. 2. I had a long discussion with her regarding smoking cessation. I have advised her to stop smoking forever. 3. Continue bronchodilator. 4. Add inhaled corticosteroid. 5. Add Solu-Medrol 40 mg IV every 12. Monitor blood sugars very closely. 6. Continue Rocephin and azithromycin. 7. Nasal swab for influenza A and B. 8. I have discussed obstructive sleep apnea-hypopnea syndrome, the importance of diagnosis and treatment, if untreated increased cardiovascular and [facility] [facility] morbidity or mortality. I do recommend a sleep study as an outpatient. 9. Lose weight and exercise. Thank you very much for allowing me to participate in care of this very nice lady. The findings and recommendations were discussed with the patient. She understood and agreed to proceed with the plan. I have answered all of her questions. NICK VASQUEZ M.D. : Allyson JOB#: [id number] / [id number]
[2018-08-27] MEDS ORDERED: INSULIN LISPRO 300 UNITS/3 ML INSULN.PEN. SQ STA (19:43)
[2018-08-27 19:50] VITALS: BP 141/68
[2018-08-27] MEDS ORDERED: BUDESONIDE 0.5 MG/2 ML NEBU. NEB SCH (20:00)
[2018-08-27] MEDS: PANTOPRAZOLE 40 MG TABLET.DR. PO SCH (20:02)
[2018-08-27] MEDS ORDERED: INSULIN GLARGINE 300 UNITS/3 ML INSULN.PEN. SQ SCH (21:00)
[2018-08-27] MEDS ORDERED: FAMOTIDINE 20 MG TABLET. PO SCH (21:00)
--- NOTE | 2018-08-27 22:26 | PDOC1 ---
History and Physical History of Present Illness History of Present Illness HPI from ED Patient is a 43 year old F who presents with cough, congestion and body aches. She has known asthma. She is noted to be short of breath with walking to the room and difficulty talking in full sentences. RT was notified for breathing treatment. Steroids were discussed and with pt's diabetes, I inquired about her blood sugars and she reports earlier today it was 130mg /dL. On my exam pt is aao x3, nad. BS clear. Pt inquires about DC today. She is an active smoker and does not appear to plan to quit anytime soon. Past Medical History Cardiovascular: HTN Pulmonary: Bronchitis, COPD Heme/Onc: No pertinent hx Endocrine: Diabetes Past Surgical History Past Surgical History: No pertinent history Family History Family History: No Significant Social History ALCOHOL: none Drugs: None Current Problem List Problem List Problems Medical Problems: (1) COPD exacerbation Status: Acute (2) Viral respiratory infection Status: Acute Current Medications Current Medications Current Medications Medications (Trade) Dose Ordered Sig/Rock Start Time Stop Time Status Last Admin Dose Admin Acetaminophen (Tylenol) 650 mg PRN Q6HRS PRN 08/26/18 22:30 Albuterol Sulfate (Ventolin Neb Soln) 2.5 mg PRN Q2HR PRN 08/26/18 22:30 Albuterol/ Ipratropium (Duoneb) 3 ml RTQID 08/27/18 08:00 08/27/18 19:56 3 ML Amlodipine Besylate (Norvasc) 10 mg DAILY 08/27/18 09:00 08/27/18 09:14 10 MG Azithromycin 250 ml @ 250 mls/hr 1X ONCE 08/26/18 20:00 08/26/18 20:59 DC 08/26/18 20:00 250 MLS/HR Budesonide (Pulmicort) 0.5 mg RTBID 08/27/18 20:00 UNV Ceftriaxone Sodium (Rocephin) 1 gm 1X ONCE 08/26/18 20:00 08/26/18 20:01 DC 08/26/18 20:29 1 GM Dextrose (Dextrose 50%-Water Syringe) 12.5 gm PRN Q15MIN PRN 08/26/18 22:30 Famotidine (Pepcid) 20 mg HS 08/26/18 22:30 UNV Furosemide (Lasix) 20 mg DAILY 08/27/18 09:00 08/27/18 09:13 20 MG Guaifenesin/ Codeine Phosphate (Robitussin Ac) 5 ml PRN Q6HRS PRN 08/26/18 21:15 08/27/18 17:26 5 ML Insulin Glargine (Lantus) 20 units 1X ONCE 08/26/18 23:00 08/26/18 23:01 DC 08/26/18 23:03 20 UNITS Insulin Human Lispro (HumaLOG) 20 units 1X STAT 08/27/18 19:43 08/27/18 19:51 DC 08/27/18 19:57 20 UNITS Lisinopril (Prinivil) 5 mg DAILY 08/27/18 09:00 08/27/18 09:14 5 MG Metformin HCl (Glucophage) 500 mg BIDWMEALS 08/26/18 23:00 08/27/18 17:26 500 MG Methylprednisolone Sodium Succinate (SOLU-Medrol 40MG VIAL) 40 mg Q12HR 08/27/18 10:00 08/27/18 19:59 40 MG Non-Formulary Medication (Metformin Hcl ) 500 mg BID 08/26/18 22:30 UNV Ondansetron HCl (Zofran) 4 mg PRN Q6HRS PRN 08/26/18 22:30 Pantoprazole Sodium (Protonix) 40 mg QHS 08/26/18 23:00 08/27/18 20:02 40 MG Prednisone (Prednisone) 60 mg 1X ONCE 08/26/18 18:00 08/26/18 18:01 DC 08/26/18 18:07 60 MG Allergies Allergies Allergies Coded Allergies Type Severity Reaction Last Updated Verified sulfamethoxazole Allergy Intermediate 10/07/17 Yes trimethoprim Allergy Intermediate 10/07/17 Yes ROS Review of System CONSTITUTIONAL: No fever or chills EYES: No recent changes SKIN: No rash or itching CARDIOVASCULAR: No chest pain, syncope, palpitations, or edema RESPIRATORY: No SOB or cough GASTROINTESTINAL: No nausea, vomiting or abdominal pain NEUROLOGICAL: No headaches or weakness ENDOCRINE: No cold or heat intolerance GENITOURINARY: No urgency or frequency of urination MUSCULOSKELETAL: No back pain or joint pain LYMPHATICS: No enlarged lymph nodes PSYCHIATRIC: No anxiety or depression Physical Exam Physical Exam GEN.: No apparent distress. Alert and oriented. HEENT: Head is normocephalic, atraumatic NECK: Supple. LUNGS: Clear to auscultation. HEART: RRR, S1, S2 present. Peripheral pulses intact ABDOMEN: Soft, nontender. Positive bowel sounds. EXTREMITIES: Without any cyanosis. NEUROLOGIC: Normal speech, normal tone PSYCHIATRIC: Normal affect, normal mood. SKIN: No ulcerations Vitals Vitals Vital Signs Date Time Temp Pulse Resp B/P (MAP) Pulse Ox O2 Delivery O2 Flow Rate FiO2 08/27/18 19:57 98 Room Air 08/27/18 19:50 98.1 81 141/68 (92) 98.1 08/27/18 15:00 20 Labs Labs Laboratory Tests Test 08/26/18 20:10 08/26/18 21:49 08/26/18 23:00 08/27/18 08:21 White Blood Count 9.7 x10^3/uL (4.0-11.0) Red Blood Count 4.55 x10^6/uL (3.50-5.40) Hemoglobin 13.8 g/dL (12.0-15.5) Hematocrit 41.0 % (36.0-47.0) Mean Corpuscular Volume 90 fL (79-100) Mean Corpuscular Hemoglobin 30 pg (25-35) Mean Corpuscular Hemoglobin Concent 34 g/dL (31-37) Red Cell Distribution Width 13.7 % (11.5-14.5) Platelet Count 291 x10^3/uL (140-400) Neutrophils (%) (Auto) 78 % (31-73) Lymphocytes (%) (Auto) 18 % (24-48) Monocytes (%) (Auto) 3 % (0-9) Eosinophils (%) (Auto) 1 % (0-3) Basophils (%) (Auto) 1 % (0-3) Neutrophils # (Auto) 7.6 x10^3uL (1.8-7.7) Lymphocytes # (Auto) 1.7 x10^3/uL (1.0-4.8) Monocytes # (Auto) 0.3 x10^3/uL (0.0-1.1) Eosinophils # (Auto) 0.1 x10^3/uL (0.0-0.7) Basophils # (Auto) 0.1 x10^3/uL (0.0-0.2) Sodium Level 139 mmol/L (136-145) Potassium Level 4.5 mmol/L (3.5-5.1) Chloride Level 100 mmol/L (98-107) Carbon Dioxide Level 31 mmol/L (21-32) Anion Gap 8 (6-14) Blood Urea Nitrogen 6 mg/dL (7-20) Creatinine 0.6 mg/dL (0.6-1.0) Estimated GFR (Cockcroft-Gault) 130.8 BUN/Creatinine Ratio 10 (6-20) Glucose Level 292 mg/dL (70-99) Lactic Acid Level 0.8 mmol/L (0.4-2.0) Calcium Level 9.4 mg/dL (8.5-10.1) Total Bilirubin 0.4 mg/dL (0.2-1.0) Aspartate Amino Transf (AST/SGOT) 21 U/L (15-37) Alanine Aminotransferase (ALT/SGPT) 20 U/L (14-59) Alkaline Phosphatase 121 U/L (46-116) XT-Xgl-S-Type Natriuretic Peptide 56 pg/mL (0-124) Total Protein 6.9 g/dL (6.4-8.2) Albumin 3.2 g/dL (3.4-5.0) Albumin/Globulin Ratio 0.9 (1.0-1.7) Glucose (Fingerstick) 399 mg/dL (70-99) 420 mg/dL (70-99) Urine Collection Type Unknown Urine Color Yellow Urine Clarity Clear Urine pH 6.0 Urine Specific Ralston >=1.030 Urine Protein Negative mg/dL (NEG-TRACE) Urine Glucose (UA) >=1000 mg/dL (NEG) Urine Ketones (Stick) Negative mg/dL (NEG) Urine Blood Negative (NEG) Urine Nitrite Negative (NEG) Urine Bilirubin Negative (NEG) Urine Urobilinogen Dipstick 1.0 mg/dL (0.2 mg/dL) Urine Leukocyte Esterase Negative (NEG) Urine RBC 0 /HPF (0-2) Urine WBC 0 /HPF (0-4) Urine Squamous Epithelial Cells Occ /LPF Urine Bacteria Few /HPF (0-FEW) Test 08/27/18 11:56 08/27/18 12:10 08/27/18 19:04 08/27/18 20:45 Glucose (Fingerstick) 364 mg/dL (70-99) 566 mg/dL (70-99) 508 mg/dL (70-99) Influenza Type A Antigen Negative (NEGATIVE) Influenza Type B Antigen Negative (NEGATIVE) Test 08/27/18 21:59 Glucose (Fingerstick) 396 mg/dL (70-99) Laboratory Tests Test 08/26/18 23:00 08/27/18 08:21 08/27/18 11:56 08/27/18 12:10 Urine Collection Type Unknown Urine Color Yellow Urine Clarity Clear Urine pH 6.0 Urine Specific Ralston >=1.030 Urine Protein Negative mg/dL (NEG-TRACE) Urine Glucose (UA) >=1000 mg/dL (NEG) Urine Ketones (Stick) Negative mg/dL (NEG) Urine Blood Negative (NEG) Urine Nitrite Negative (NEG) Urine Bilirubin Negative (NEG) Urine Urobilinogen Dipstick 1.0 mg/dL (0.2 mg/dL) Urine Leukocyte Esterase Negative (NEG) Urine RBC 0 /HPF (0-2) Urine WBC 0 /HPF (0-4) Urine Squamous Epithelial Cells Occ /LPF Urine Bacteria Few /HPF (0-FEW) Glucose (Fingerstick) 420 mg/dL (70-99) 364 mg/dL (70-99) Influenza Type A Antigen Negative (NEGATIVE) Influenza Type B Antigen Negative (NEGATIVE) Test 08/27/18 19:04 08/27/18 20:45 08/27/18 21:59 Glucose (Fingerstick) 566 mg/dL (70-99) 508 mg/dL (70-99) 396 mg/dL (70-99) VTE Prophylaxis Ordered VTE Prophylaxis Devices: No VTE Pharmacological Prophylaxi: Yes Assessment/Plan Assessment/Plan Plan: Haddad from IV steroids to po in preps to go home Smoking cessation Monitor sugars LOREE OTOOLE MD Aug 27, 2018 22:26
[2018-08-27] MEDS ORDERED: predniSONE 20 MG TABLET PO ONE (23:00)
[2018-08-27 23:30] VITALS: BP 130/80
[2018-08-28 03:38] VITALS: BP 132/74
[2018-08-28 07:00] VITALS: BP 130/94
[2018-08-28] MEDS: BUDESONIDE 0.5 MG/2 ML NEBU. NEB SCH (07:31)
[2018-08-28] MEDS: IPRATRPIUM/ALBUTEROL 0.5/2.5MG 3 ML NEBU. NEB SCH ×2 (07:31→12:40)
[2018-08-28] MEDS: guaiFENesin/CODEINE 100mg/10mg 5 ML LIQUID PO PRN (09:00)
[2018-08-28] MEDS ORDERED: predniSONE 20 MG TABLET PO SCH (09:00)
[2018-08-28] MEDS: FUROSEMIDE 20 MG TABLET PO SCH (09:01)
[2018-08-28] MEDS: amLODIPine BESYLATE 10 MG TABLET PO SCH (09:02)
[2018-08-28] MEDS: metFORMIN 500 MG TABLET PO SCH (09:02)
[2018-08-28] MEDS: LISINOPRIL 5 MG TABLET. PO SCH (09:04)
[2018-08-28] MEDS: INSULIN LISPRO 300 UNITS/3 ML INSULN.PEN. SQ SCH ×2 (09:09→12:33)
--- NOTE | 2018-08-28 09:37 | PDOC ---
PULMONARY PROGRESS NOTES Subjective sob better, has cough, green sputum, no pain Vitals Vital Signs Date Time Temp Pulse Resp B/P (MAP) Pulse Ox O2 Delivery O2 Flow Rate FiO2 08/28/18 09:04 94 130/94 08/28/18 07:34 98 Room Air 08/28/18 07:00 98.2 20 98.2 Lungs: Wheezing Labs Laboratory Tests Test 08/26/18 20:10 08/26/18 21:49 08/26/18 23:00 08/27/18 08:21 White Blood Count 9.7 x10^3/uL (4.0-11.0) Red Blood Count 4.55 x10^6/uL (3.50-5.40) Hemoglobin 13.8 g/dL (12.0-15.5) Hematocrit 41.0 % (36.0-47.0) Mean Corpuscular Volume 90 fL (79-100) Mean Corpuscular Hemoglobin 30 pg (25-35) Mean Corpuscular Hemoglobin Concent 34 g/dL (31-37) Red Cell Distribution Width 13.7 % (11.5-14.5) Platelet Count 291 x10^3/uL (140-400) Neutrophils (%) (Auto) 78 % (31-73) Lymphocytes (%) (Auto) 18 % (24-48) Monocytes (%) (Auto) 3 % (0-9) Eosinophils (%) (Auto) 1 % (0-3) Basophils (%) (Auto) 1 % (0-3) Neutrophils # (Auto) 7.6 x10^3uL (1.8-7.7) Lymphocytes # (Auto) 1.7 x10^3/uL (1.0-4.8) Monocytes # (Auto) 0.3 x10^3/uL (0.0-1.1) Eosinophils # (Auto) 0.1 x10^3/uL (0.0-0.7) Basophils # (Auto) 0.1 x10^3/uL (0.0-0.2) Sodium Level 139 mmol/L (136-145) Potassium Level 4.5 mmol/L (3.5-5.1) Chloride Level 100 mmol/L (98-107) Carbon Dioxide Level 31 mmol/L (21-32) Anion Gap 8 (6-14) Blood Urea Nitrogen 6 mg/dL (7-20) Creatinine 0.6 mg/dL (0.6-1.0) Estimated GFR (Cockcroft-Gault) 130.8 BUN/Creatinine Ratio 10 (6-20) Glucose Level 292 mg/dL (70-99) Lactic Acid Level 0.8 mmol/L (0.4-2.0) Calcium Level 9.4 mg/dL (8.5-10.1) Total Bilirubin 0.4 mg/dL (0.2-1.0) Aspartate Amino Transf (AST/SGOT) 21 U/L (15-37) Alanine Aminotransferase (ALT/SGPT) 20 U/L (14-59) Alkaline Phosphatase 121 U/L (46-116) WQ-Ncn-D-Type Natriuretic Peptide 56 pg/mL (0-124) Total Protein 6.9 g/dL (6.4-8.2) Albumin 3.2 g/dL (3.4-5.0) Albumin/Globulin Ratio 0.9 (1.0-1.7) Glucose (Fingerstick) 399 mg/dL (70-99) 420 mg/dL (70-99) Urine Collection Type Unknown Urine Color Yellow Urine Clarity Clear Urine pH 6.0 Urine Specific [place] >=1.030 Urine Protein Negative mg/dL (NEG-TRACE) Urine Glucose (UA) >=1000 mg/dL (NEG) Urine Ketones (Stick) Negative mg/dL (NEG) Urine Blood Negative (NEG) Urine Nitrite Negative (NEG) Urine Bilirubin Negative (NEG) Urine Urobilinogen Dipstick 1.0 mg/dL (0.2 mg/dL) Urine Leukocyte Esterase Negative (NEG) Urine RBC 0 /HPF (0-2) Urine WBC 0 /HPF (0-4) Urine Squamous Epithelial Cells Occ /LPF Urine Bacteria Few /HPF (0-FEW) Test 08/27/18 11:56 08/27/18 12:10 08/27/18 19:04 08/27/18 20:45 Glucose (Fingerstick) 364 mg/dL (70-99) 566 mg/dL (70-99) 508 mg/dL (70-99) Influenza Type A Antigen Negative (NEGATIVE) Influenza Type B Antigen Negative (NEGATIVE) Test 08/27/18 21:59 08/28/18 03:10 08/28/18 07:21 Glucose (Fingerstick) 396 mg/dL (70-99) 391 mg/dL (70-99) 413 mg/dL (70-99) Laboratory Tests Test 08/27/18 11:56 08/27/18 12:10 08/27/18 19:04 08/27/18 20:45 Glucose (Fingerstick) 364 mg/dL (70-99) 566 mg/dL (70-99) 508 mg/dL (70-99) Influenza Type A Antigen Negative (NEGATIVE) Influenza Type B Antigen Negative (NEGATIVE) Test 08/27/18 21:59 08/28/18 03:10 08/28/18 07:21 Glucose (Fingerstick) 396 mg/dL (70-99) 391 mg/dL (70-99) 413 mg/dL (70-99) Medications Active Scripts Medications Dose Route/Sig Max Daily Dose Days Date Category Protonix (Pantoprazole Sodium) 20 Mg Tablet.dr 40 Mg PO DAILY 08/26/18 Reported Symbicort 160-4.5 Mcg Inhaler (Budesonide/Formoterol Fumarate) 10.2 Gm Hfa.aer.ad 1 Puff IH BID 08/26/18 Reported Metformin Hcl 500 Mg Tablet 500 Mg PO BIDWMEALS 08/26/18 Reported Proair Hfa Inhaler (Albuterol Sulfate) 8.5 Gm Hfa.aer.ad 1 Puff INH PRN Q6HRS PRN 5 10/07/17 Rx Furosemide 20 Mg Tablet 20 Mg PO DAILY 11/28/16 Reported Lisinopril 5 Mg Tablet 5 Mg PO DAILY 11/28/16 Reported Levemir Flextouch (Insulin Detemir) 100 Unit/1 Ml Insuln.pen 14 Unit SQ HS 11/28/16 Reported Amlodipine Besylate 10 Mg Tablet 10 Mg PO DAILY 11/28/16 Reported Potassium Chloride 10 Meq Tablet.er 10 Meq PO DAILY 11/28/16 Reported Combivent Respimat Inhal (Ipratropium/Albuterol Sulfate) 4 Gm Aer.w.adap 2 Inh IH QID 10/12/16 Rx Impression . IMPRESSION: 1. Cough secondary to acute exacerbation of chronic obstructive pulmonary disease, acute bronchitis versus others. 2. Acute exacerbation of chronic obstructive pulmonary disease. 3. Acute bronchitis. 4. Tobacco habituation. 5. Snoring, obesity, probable obstructive sleep apnea-hypopnea syndrome. 6. Diabetes mellitus. 7. Hypertension. Plan . PLAN AND RECOMMENDATIONS: 1. Titrate FiO2 to keep O2 saturation 92%. 2. I had a long discussion with her regarding smoking cessation. I have advised her to stop smoking forever. 3. Continue bronchodilator. 4. inhaled corticosteroid. 5. solu-Medrol 40 mg IV every 12. no dose change, Monitor blood sugars very closely. 6. Continue Rocephin and azithromycin. 7. Nasal swab for influenza A and B, neg. 8. I have discussed obstructive sleep apnea-hypopnea syndrome, the importance of diagnosis and treatment, if untreated increased cardiovascular and [employer] morbidity or mortality. I do recommend a sleep study as an outpatient. 9. Lose weight and exercise. discussed w cinthya, rn NICK VASQUEZ MD Aug 28, 2018 09:37
[2018-08-28] MEDS ORDERED: AZITHROMYCIN 250 MG TABLET. PO ONE (09:45)
[2018-08-28] MEDS ORDERED: cefTRIAXone IV Push 1 GM VIAL. IVP SCH (10:00)
[2018-08-28 11:00] VITALS: BP 148/88
--- NOTE | 2018-08-28 13:04 | PDOC3 ---
Discharge Summary IPC Final Diagnosis Problems Medical Problems: (1) COPD exacerbation Status: Acute (2) Viral respiratory infection Status: Acute Brief Hospital Course Ms. Rea is a 43 old F who presented with COPD exacerbation. She is an active smoker - not interested in quitting. Demanding to go home today despite elevated sugars.But sugars moreso elevated to Prednisone usage. Now onpo Prednisone so that should help with decreasing blood sugars. Discussed monitoring carb intake while on steroids as sugar can get too high. Patient History: Patient reports no known family medical history. CONDITION AT DISCHARGE: Improved Scheduled Amlodipine Besylate (Amlodipine Besylate), 10 MG PO DAILY, (Reported) Budesonide/Formoterol Fumarate (Symbicort 160-4.5 Mcg Inhaler), 1 PUFF IH BID, ( Reported) Furosemide (Furosemide), 20 MG PO DAILY, (Reported) Insulin Detemir (Levemir Flextouch), 14 UNIT SQ HS, (Reported) Ipratropium/Albuterol Sulfate (Combivent Respimat Inhal), 2 INH IH QID Lisinopril (Lisinopril), 5 MG PO DAILY, (Reported) Metformin Hcl (Metformin Hcl), 500 MG PO BIDWMEALS, (Reported) Pantoprazole Sodium (Protonix), 40 MG PO DAILY, (Reported) Potassium Chloride (Potassium Chloride), 10 MEQ PO DAILY, (Reported) Scheduled PRN Albuterol Sulfate (Proair Hfa Inhaler), 1 PUFF INH PRN Q6HRS PRN for SHORTNESS OF BREATH Discontinued Medications Metformin Hcl (Metformin Hcl), 1,000 MG PO DAILYWBKFT, (Reported) LOREE OTOOLE MD Aug 28, 2018 13:04
[2018-08-28] MEDS ORDERED: AZIT250T6 PO (13:38)
[2018-08-28] MEDS ORDERED: PRED-220 PO (13:38)
[2018-08-28] MEDS ORDERED: L. R1CAP2 PO (14:17)
--- NOTE | 2018-08-28 14:55 | NUR ---
pt was discharged home with self care. she was given 3 scripts, azithro- prednisone- culturelle. she was walked out the main entrance by Lissa JULIAN. Ze Ho RN
[2018-08-29] MEDS ORDERED: AZITHROMYCIN 250 MG TABLET. PO SCH (09:00)
[2018-11-30] MEDS ORDERED: MONT10TA49 PO (05:15)
[2018-12-01] MEDS ORDERED: PRED-220 PO (10:41)
[2018-12-01] MEDS ORDERED: GUAI600T47 PO (10:41)
[2018-12-01] MEDS ORDERED: DOXY100T PO (10:41)
== END 2018-08-28 15:02 | disposition home or self-care (01) | DRG 202 ==
LOC: ER 17:27 → 6 SOUTH 20:59 → ER 21:30
PROVIDERS: ADMIT Internal Medicine; ATTEND Internal Medicine
DX: J20.9 Acute bronchitis, unspecified (principal); J44.1 Chronic obstructive pulmonary disease with (acute) exacerbation; Z68.42 Body mass index [BMI] 45.0-49.9, adult; J44.0 Chronic obstructive pulmonary disease with (acute) lower respiratory infection; E11.9 Type 2 diabetes mellitus without complications; E66.9 Obesity, unspecified; F17.210 Nicotine dependence, cigarettes, uncomplicated; J98.8 Other specified respiratory disorders; G47.33 Obstructive sleep apnea (adult) (pediatric); I10 Essential (primary) hypertension; Z79.51 Long term (current) use of inhaled steroids; Z79.4 Long term (current) use of insulin; Z79.899 Other long term (current) drug therapy; Z88.8 Allergy status to other drugs, medicaments and biological substances; Z71.6 Tobacco abuse counseling
CPT/HCPCS: 36415; 71046; 80053; 81001; 82962; 83605; 83880; 85025; 87040; 87804; 94640; 96365; 96366; 96372; 96375; J0456; J0696; J1815; J2405; J2920; J7512; J7613; J7620; J7626; Q0144; 99285-25; G0378

== ENCOUNTER 2018-11-29 22:41 | Inpatient (IN) | payer OTHER ==
[~2018-11-29] VITALS: Ht 167.6 cm; Wt 135.2 kg
[~2018-11-29 22:41] MED LIST changes: +BUDE10.2 IH; +FAMO-63 PO; +L. R1CAP2 PO; +METF500T16 PO; +PANT20TA2 PO; +PRED-220 PO
--- NOTE | 2018-11-29 23:14 | PHYS DOC ---
Adult General Chief Complaint Chief Complaint: SHORTNESS OF BREATH HPI HPI Patient is a 44 year old female who presents with SOA. Onset was 2-3 days ago. She has been increasingly getting more SOA. Pt states she has had to use her inhaler more often, but it has not helped. She complains of chronic cough with new production of light green sputum. She denies fever, chills, recent illness, CP. She states a rash developed on her hand, the back of her legs and under her breast around the same time the SOA began. She tried Benadryl, which did not help. She has a PMHx of COPD, DM, HTN, asthma. She is not on O2 at home. Smokes 1/2 pack per day. [] Review of Systems Review of Systems Constitutional: Denies fever or chills [] Eyes: Denies change in visual acuity, redness, or eye pain [] HENT: Denies nasal congestion or sore throat [] Respiratory: Productive cough and shortness of breath [] Cardiovascular: No additional information not addressed in HPI [] GI: Denies abdominal pain, nausea, vomiting, bloody stools or diarrhea [] : Denies dysuria or hematuria [] Musculoskeletal: Denies back pain or joint pain [] Integument: Rash on hand, back of leg and under breast. Neurologic: Denies headache, focal weakness or sensory changes [] Endocrine: Denies polyuria or polydipsia [] All other systems were reviewed and found to be within normal limits, except as documented in this note. Current Medications Current Medications Current Medications Medications (Trade) Dose Ordered Sig/Rock Start Time Stop Time Status Last Admin Dose Admin Albuterol Sulfate (Ventolin Neb Soln) 10 mg 1X ONCE 11/29/18 23:30 11/29/18 23:31 DC 11/29/18 23:42 10 MG Albuterol/ Ipratropium (Duoneb) 3 ml 1X ONCE 11/29/18 23:15 11/29/18 23:16 DC 11/29/18 23:42 3 ML Doxycycline Hyclate (Vibra-Tab) 100 mg 1X ONCE 11/29/18 23:45 11/29/18 23:46 DC 11/30/18 01:30 100 MG Methylprednisolone Sodium Succinate (SOLU-Medrol 125MG VIAL) 125 mg 1X ONCE 11/29/18 23:15 4/23/19 23:16 DC 11/29/18 23:15 125 MG Allergies Allergies Allergies Coded Allergies Type Severity Reaction Last Updated Verified sulfamethoxazole Allergy Intermediate HIVES 11/29/18 Yes trimethoprim Allergy Intermediate HIVES 11/29/18 Yes Physical Exam Physical Exam Constitutional: Well developed, well nourished, no acute distress, non-toxic appearance. [] HENT: Normocephalic, atraumatic, bilateral external ears normal, oropharynx moist, no oral exudates, nose normal. []No oropharynx swelling Eyes: PERRLA, EOMI, conjunctiva normal, no discharge. [] Neck: Normal range of motion, no tenderness, supple, no stridor. [] Cardiovascular:Heart rate regular rhythm, no murmur [] Lungs & Thorax: Bilateral expiratory wheeze[] prolonged expiratory phase speaking short sentences appears to be in mild respiratory distress Abdomen: Bowel sounds normal, soft, no tenderness, no masses, no pulsatile masses. [] Skin: Scattered urticarial rash on the arms and dorsum of the hands Back: No tenderness, no CVA tenderness. [] Extremities: No tenderness, no cyanosis, no clubbing, ROM intact, no edema. [] Neurologic: Alert and oriented X 3, normal motor function, normal sensory function, no focal deficits noted. [] Psychologic: Affect normal, judgement normal, mood normal. [] Current Patient Data Vital Signs Vital Signs Date Time Temp Pulse Resp B/P (MAP) Pulse Ox O2 Delivery O2 Flow Rate FiO2 11/29/18 23:52 98 20 167/72 (103) 98 Nasal Cannula 2.0 11/29/18 22:44 98.8 98.8 EKG EKG Sinus tach rate 101 no acute ischemic changes noted interpreted by me time of encounter[] Radiology/Procedures Radiology/Procedures [] Impressions: Chest x-ray somewhat poor quality portable film however I was concern for possible interstitial infiltrate Course & Med Decision Making Course & Med Decision Making Pertinent Labs and Imaging studies reviewed. (See chart for details) []43-year-old female known COPD still smoking not on home oxygen present with shortness of breath found to be wheezing moderately still wheezing after DuoNeb placed on hour of continuous Solu-Medrol and antibiotics were given possible interstitial pneumonia on my read of chest x-ray final read is pending the quality of the film was somewhat poor troponin and EKG were negative for acute ischemia. Patient was hypoxic 86% on room air in triage and given the persistent wheezing I think she warrants admission for albuterol treatment and further management. Admitted to service of Dr. shu Leon Disclaimer Carolyn Disclaimer This electronic medical record was generated, in whole or in part, using a voice recognition dictation system. Departure Departure Impression: Primary Impression: COPD exacerbation Disposition: ADMITTED INPATIENT Admitting Physician: iNtza Polo Condition: STABLE SHAKILA ENRIQUE MD Nov 29, 2018 23:14
[2018-11-29] MEDS ORDERED: IPRATRPIUM/ALBUTEROL 0.5/2.5MG 3 ML NEBU. NEB ONE ×2 (23:15)
[2018-11-29] MEDS ORDERED: methylPREDNISolone SOD SUCC PF 125 MG/2 ML VIAL. IV ONE (23:15)
[2018-11-29] MEDS ORDERED: ALBUTEROL SULFATE 2.5 MG/3 ML NEBU. CONT NEB ONE (23:30)
[2018-11-29] MEDS ORDERED: DOXYCYCLINE HYCLATE 100 MG TABLET PO ONE (23:45)
[2018-11-30] MEDS ORDERED: cefTRIAXone IV Push 1 GM VIAL. IVP ONE
[2018-11-30 00:17] LABS: BASO # 0.1 x10^3/uL (0.0-0.2); BASO % 1 % (0-3); EOS # 0.1 x10^3/uL (0.0-0.7); EOS % 2 % (0-3); HEMATOCRIT 37.4 % (36.0-47.0); HEMOGLOBIN 12.2 g/dL (12.0-15.5); LYMPH # 3.6 x10^3/uL (1.0-4.8); LYMPH % 43 % (24-48); MEAN CORPUSCULAR HEMOGLOBIN 29 pg (25-35); MEAN CORPUSCULAR HGB CONC 33 g/dL (31-37); MEAN CORPUSCULAR VOLUME 89 fL (79-100); MONO # 0.5 x10^3/uL (0.0-1.1); MONO % 6 % (0-9); NEUT # 4.2 x10^3uL (1.8-7.7); NEUT % 49 % (31-73); PLATELET COUNT 256 x10^3/uL (140-400); RED BLOOD COUNT 4.23 x10^6/uL (3.50-5.40); RED CELL DISTRIBUTION WIDTH 13.7 % (11.5-14.5); WHITE BLOOD COUNT 8.5 x10^3/uL (4.0-11.0)
[2018-11-30 00:46] LABS: ALBUMIN 2.3 g/dL (3.4-5.0); ALBUMIN/GLOBULIN RATIO 0.7 (1.0-1.7); CALCIUM 7.5 mg/dL (8.5-10.1); CREATININE 0.7 mg/dL (0.6-1.0); GFR 109.5; TOTAL BILIRUBIN 0.1 mg/dL (0.2-1.0); TOTAL PROTEIN 5.4 g/dL (6.4-8.2)
[2018-11-30 00:52] LABS: POTASSIUM 2.9 mmol/L (3.5-5.1)
[2018-11-30] MEDS ORDERED: POTASSIUM CHLORIDE 20 MEQ/15 ML ORAL LIQUID. PO ONE (01:15)
[2018-11-30 01:58] VITALS: BP 135/80
[2018-11-30] MEDS ORDERED: hydrOXYzine PAMOATE 25 MG CAPSULE PO PRN (02:45)
[2018-11-30] MEDS ORDERED: ALBUTEROL SULFATE 2.5 MG/3 ML NEBU. NEB PRN (02:45)
[2018-11-30] MEDS: guaiFENesin DM 200MG/20MG 10 ML SYRUP PO PRN ×2 (02:49→22:29)
[2018-11-30] MEDS ORDERED: OMEP20CA10 PO (05:15)
[2018-11-30] MEDS ORDERED: FURO20TA3 PO (05:15)
[2018-11-30] MEDS ORDERED: POTA10TA11 PO (05:15)
[2018-11-30] MEDS ORDERED: AMLO10TA8 PO (05:15)
[2018-11-30] MEDS ORDERED: INSU100I17 SQ (05:15)
[2018-11-30] MEDS ORDERED: BUDE10.2 INH (05:15)
[2018-11-30] MEDS ORDERED: SIMV10TA3 PO (05:15)
[2018-11-30] MEDS ORDERED: IPRA4AER INH (05:15)
[2018-11-30] MEDS ORDERED: NAPR-514 PO (05:15)
[2018-11-30] MEDS ORDERED: MONT10TA9 PO (05:15)
[2018-11-30] MEDS ORDERED: SITA1TBM4 PO (05:15)
[2018-11-30] MEDS ORDERED: INSU100I27 SQ (05:15)
[2018-11-30] MEDS ORDERED: LISI-338 PO (05:15)
[2018-11-30] MEDS ORDERED: METF10007 PO (05:15)
[2018-11-30 07:05] VITALS: BP 126/72
--- NOTE | 2018-11-30 07:24 | EKG ---
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
[2018-11-30] MEDS ORDERED: IPRATRPIUM/ALBUTEROL 0.5/2.5MG 3 ML NEBU. NEB SCH ×2 (08:00→12:00)
--- NOTE | 2018-11-30 08:12 | RAD ---
Examination: PORTABLE CHEST 1V History: SOA Comparison/Correlation: 05/16/2018 AP view of the chest Findings: Portable upright frontal view of the chest was obtained. Heart size is borderline but this may in part be related to technique. Limited pulmonary inflation noted. No pneumothorax. Number vasculature is within the upper limits of normal. No infiltrate or pleural effusion. No acute bony process. Impression: No active disease. Electronically signed by: Stanislav Le MD (11/30/2018 8:10 AM) [facility]
[2018-11-30] MEDS ORDERED: DEXTROSE 50% 25 GM / 50ML DISP.SYRIN. IV PRN (09:00)
[2018-11-30] MEDS: INSULIN GLARGINE 300 UNITS/3 ML INSULN.PEN. SQ SCH (09:00)
[2018-11-30] MEDS: amLODIPine BESYLATE 10 MG TABLET PO SCH (09:00)
[2018-11-30] MEDS: FUROSEMIDE 20 MG TABLET PO SCH (09:00)
[2018-11-30] MEDS: MONTELUKAST SODIUM 10 MG TABLET. PO SCH (09:00)
[2018-11-30] MEDS: PANTOPRAZOLE 40 MG TABLET.DR. PO SCH (09:15)
[2018-11-30] MEDS: NAPROXEN 500 MG TABLET PO SCH ×2 (09:15→22:32)
[2018-11-30] MEDS: LINAGLIPTIN 5 MG TABLET PO SCH (09:15)
[2018-11-30] MEDS: INSULIN LISPRO 300 UNITS/3 ML INSULN.PEN. SQ SCH ×5 (09:15→17:27)
--- NOTE | 2018-11-30 09:23 | PDOC1 ---
History and Physical Date of Admission Date of Admission DATE: 11/30/18 TIME: 09:18 Source Source: Chart review, Patient History of Present Illness History of Present Illness Ms. Rea, is a 44 year old female who presents with acute dyspnea, cough and sputum worse over 2 days. she has been compliant with her symbicort, has been using rescue inhaler "all the time" and it is not helping. Some chronic cough but this has been worse and impeding her sleep recent hand rash, now better Past Medical History Past Medical History PMHx DM, HTN, asthma. She is not on O2 at home Family History Family History: Coronary Artery Disease Social History Smoke: <1 pack per day ALCOHOL: rare Drugs: None Current Medications Current Medications Current Medications Albuterol/ Ipratropium (Duoneb) 3 ml 1X ONCE NEB Last administered on 11/29/18 at 22:55; Start 11/29/18 at 23:15; Stop 11/29/18 at 23:16; Status DC Methylprednisolone Sodium Succinate (SOLU-Medrol 125MG VIAL) 125 mg 1X ONCE IV Last administered on 11/29/18at 23:15; Start 11/29/18 at 23:15; Stop 11/29/18 at 23:16; Status DC Albuterol/ Ipratropium (Duoneb) 3 ml 1X ONCE NEB Last administered on 11/29/18at 23:42; Start 11/29/18 at 23:15; Stop 11/29/18 at 23:16; Status DC Albuterol Sulfate (Ventolin Neb Soln) 10 mg 1X ONCE CONT NEB Last administered on 11/29/18at 23:42; Start 11/29/18 at 23:30; Stop 11/29/18 at 23:31; Status DC Doxycycline Hyclate (Vibra-Tab) 100 mg 1X ONCE PO Last administered on 11/30/18at 01:30; Start 11/29/18 at 23:45; Stop 11/29/18 at 23:46; Status DC Ceftriaxone Sodium (Rocephin) 1 gm 1X ONCE IVP Last administered on 11/30/18at 01:30; Start 11/30/18 at 00:00; Stop 11/30/18 at 00:01; Status DC Albuterol/ Ipratropium (Duoneb) 3 ml RTQID NEB Last administered on 11/30/18at 07:39; Start 11/30/18 at 08:00; Stop 11/30/18 at 09:07; Status DC Potassium Chloride (KCl Oral Soln) 40 meq 1X ONCE PO Last administered on 11/30/18at 01:30; Start 11/30/18 at 01:15; Stop 11/30/18 at 01:16; Status DC Albuterol Sulfate (Ventolin Neb Soln) 2.5 mg PRN Q4HRS PRN NEB SHORTNESS OF BREATH; Start 11/30/18 at 02:45 Guaifenesin (Mucinex) 600 mg BID PO ; Start 11/30/18 at 09:00 Guaifenesin (Robitussin Dm) 10 ml PRN Q6HRS PRN PO COUGH Last administered on 11/30/18at 02:49; Start 11/30/18 at 02:45 Hydroxyzine Pamoate (Vistaril) 25 mg PRN Q6HRS PRN PO ITCHING Last administered on 11/30/18at 02:49; Start 11/30/18 at 02:45 Insulin Human Lispro (HumaLOG) 0-9 UNITS TIDWMEALS SQ ; Start 11/30/18 at 12:00 Dextrose (Dextrose 50%-Water Syringe) 12.5 gm PRN Q15MIN PRN IV SEE COMMENTS; Start 11/30/18 at 09:00 Amlodipine Besylate (Norvasc) 10 mg DAILY PO ; Start 11/30/18 at 09:00 Furosemide (Lasix) 20 mg DAILY PO ; Start 11/30/18 at 09:00 Simvastatin (Zocor) 10 mg QHS PO ; Start 11/30/18 at 21:00 Albuterol/ Ipratropium (Duoneb) 3 ml RTQID NEB ; Start 11/30/18 at 12:00 Insulin Human Lispro (HumaLOG) 20 units TIDWMEALS SQ ; Start 11/30/18 at 09:15 Budesonide (Pulmicort) 0.5 mg RTBID NEB ; Start 11/30/18 at 20:00 Lisinopril (Prinivil) 5 mg DAILY PO ; Start 11/30/18 at 10:00 Metformin HCl (Glucophage) 1,000 mg BIDWMEALS PO ; Start 11/30/18 at 10:00 Montelukast Sodium (Singulair) 10 mg DAILY PO ; Start 11/30/18 at 09:00 Naproxen (Naprosyn) 500 mg BID PO ; Start 11/30/18 at 09:15 Pantoprazole Sodium (Protonix) 40 mg DAILYAC PO ; Start 11/30/18 at 09:15 Potassium Chloride (Klor-Con) 10 meq DAILYWBKFT PO ; Start 11/30/18 at 09:30 Linagliptin (Tradjenta) 5 mg DAILY PO ; Start 11/30/18 at 09:15 Insulin Glargine (Lantus) 35 units DAILY SQ ; Start 11/30/18 at 09:00 Active Scripts Active Reported Potassium Chloride 10 Meq Tablet.er 1 Tab PO DAILY Omeprazole 20 Mg Capsule.dr 1 Cap PO DAILY Combivent Respimat Inhal (Ipratropium/Albuterol Sulfate) 4 Gm Aer.w.adap 2 Puff INH QID Janumet Xr 50-1,000 Mg Tablet (Sitagliptin Phos/Metformin Hcl) 1 Each Tbmp.24hr 2 Tab PO DAILYWSUP Symbicort 160-4.5 Mcg Inhaler (Budesonide/Formoterol Fumarate) 10.2 Gm Hfa.aer.ad 1 Inh INH BID Levemir Flextouch (Insulin Detemir) 100 Unit/1 Ml Insuln.pen 25 Units SQ DAILY Novolog Flexpen (Insulin Aspart) 100 Unit/1 Ml Insuln.pen 20 Units SQ TID Metformin Hcl 1,000 Mg Tablet 1 Tab PO BID Montelukast Sodium Tablet (Montelukast Sodium) 10 Mg Tablet 1 Tab PO DAILY Amlodipine Besylate 10 Mg Tablet 1 Tab PO DAILY Simvastatin 10 Mg Tablet 1 Tab PO DAILY Naproxen 500 Mg Tablet 1 Tab PO BID Lisinopril 5 Mg Tablet 1 Tab PO DAILY Furosemide 20 Mg Tablet 1 Tab PO DAILY Allergies Allergies: Coded Allergies: sulfamethoxazole (Verified Allergy, Intermediate, HIVES, 11/29/18) trimethoprim (Verified Allergy, Intermediate, HIVES, 11/29/18) ROS General: YES: Chills, Fatigue PSYCHOLOGICAL ROS: No: Anxiety, Behavioral Disorder, Concentration difficultie, Decreased libido, Depression, Disorientation, Hallucinations, Hostility, Irritablity, Memory difficulties, Mood Swings, Obsessive thoughts, Physical abuse, Sexual abuse, Sleep disturbances, Suicidal ideation, Other Eyes: No Blurry vision, No Decreased vision, No Double vision, No Dry eyes, No Excessive tearing, No Eye Pain, No Itchy Eyes, No Loss of vision, No Photophobia, No Scotomata, No Uses contacts, No Uses glasses, No Other HEENT: No: Heacaches, Visual Changes, Hearing change, Nasal congestion, Nasal discharge, Oral lesions, Sinus pain, Sore Throat, Epistaxis, Sneezing, Snoring, Tinnitus, Vertigo, Vocal changes, Other Respiratory: YES: Cough, SOB with excertion, Sputum Changes, Tachypnea, Wheezing Cardiovascular: No Chest Pain, No Palpitations, No Orthopnea, No Paroxysmal Noc. Dyspnea, No Edema, No Lt Headedness, No Other Gastrointestinal: No Nausea, No Vomiting, No Abdominal Pain, No Diarrhea, No Constipation, No Melena, No Hematochezia, No Other Genitourinary: No Dysuria, No Frequency, No Incontinence, No Hematuria, No Retention, No Discharge, No Urgency, No Pain, No Flank Pain, No Other, No , No , No , No , No , No , No Musculoskeletal: No Gait Disturbance, No Joint Pain, No Joint Stiffness, No Joint Swelling, No Muscle Pain, No Muscular Weakness, No Pain In:, No Swelling In:, No Other Neurological: No Behavorial Changes, No Bowel/Bladder ControlChng, No Confusion, No Dizziness, No Gait Disturbance, No Headaches, No Impaired Coord /balance, No Memory Loss, No Numbness/Tingling, No Seizures, No Speech Problems, No Tremors, No Visual Changes, No Weakness, No Other Skin: No Dry Skin, No Eczema, No Hair Changes, No Lumps, No Mole Changes, No Mottling, No Nail Changes, No Pruritus, No Rash, No Skin Lesion Changes, No Other, No Acne Physical Exam General: Alert, No acute distress HEENT: Atraumatic, PERRLA, EOMI, Mucous membr. moist/pink Lungs: Other (limited vol, rales and wheeze, R> L) Heart: no gallops, no murmurs Abdomen: Normal bowel sounds, Soft (nt), No tenderness Extremities: No cyanosis, No edema Skin: No rashes, No significant lesion Neuro: Normal speech, Normal tone, Cranial nerves 3-12 NL Psych/Mental Status: Mental status NL, Mood NL Vitals Vitals Vital Signs Date Time Temp Pulse Resp B/P (MAP) Pulse Ox O2 Delivery O2 Flow Rate FiO2 11/30/18 07:40 95 Nasal Cannula 2.0 11/30/18 07:05 97.9 87 20 126/72 (90) 97.9 Labs Labs Laboratory Tests Test 11/30/18 00:07 11/30/18 07:18 White Blood Count 8.5 x10^3/uL (4.0-11.0) Red Blood Count 4.23 x10^6/uL (3.50-5.40) Hemoglobin 12.2 g/dL (12.0-15.5) Hematocrit 37.4 % (36.0-47.0) Mean Corpuscular Volume 89 fL (79-100) Mean Corpuscular Hemoglobin 29 pg (25-35) Mean Corpuscular Hemoglobin Concent 33 g/dL (31-37) Red Cell Distribution Width 13.7 % (11.5-14.5) Platelet Count 256 x10^3/uL (140-400) Neutrophils (%) (Auto) 49 % (31-73) Lymphocytes (%) (Auto) 43 % (24-48) Monocytes (%) (Auto) 6 % (0-9) Eosinophils (%) (Auto) 2 % (0-3) Basophils (%) (Auto) 1 % (0-3) Neutrophils # (Auto) 4.2 x10^3uL (1.8-7.7) Lymphocytes # (Auto) 3.6 x10^3/uL (1.0-4.8) Monocytes # (Auto) 0.5 x10^3/uL (0.0-1.1) Eosinophils # (Auto) 0.1 x10^3/uL (0.0-0.7) Basophils # (Auto) 0.1 x10^3/uL (0.0-0.2) Maternal Serum HCG Beta Subunit 3 mIU/mL (0-5) Sodium Level 144 mmol/L (136-145) Potassium Level 2.9 mmol/L (3.5-5.1) Chloride Level 109 mmol/L (98-107) Carbon Dioxide Level 25 mmol/L (21-32) Anion Gap 10 (6-14) Blood Urea Nitrogen 10 mg/dL (7-20) Creatinine 0.7 mg/dL (0.6-1.0) Estimated GFR (Cockcroft-Gault) 109.5 BUN/Creatinine Ratio 14 (6-20) Glucose Level 148 mg/dL (70-99) Lactic Acid Level 0.9 mmol/L (0.4-2.0) Calcium Level 7.5 mg/dL (8.5-10.1) Total Bilirubin 0.1 mg/dL (0.2-1.0) Aspartate Amino Transf (AST/SGOT) 14 U/L (15-37) Alanine Aminotransferase (ALT/SGPT) 12 U/L (14-59) Alkaline Phosphatase 78 U/L (46-116) Troponin I Quantitative < 0.017 ng/mL (0.000-0.055) PS-Egr-D-Type Natriuretic Peptide 37 pg/mL (0-124) Total Protein 5.4 g/dL (6.4-8.2) Albumin 2.3 g/dL (3.4-5.0) Albumin/Globulin Ratio 0.7 (1.0-1.7) Glucose (Fingerstick) 325 mg/dL (70-99) Laboratory Tests Test 11/30/18 00:07 11/30/18 07:18 White Blood Count 8.5 x10^3/uL (4.0-11.0) Red Blood Count 4.23 x10^6/uL (3.50-5.40) Hemoglobin 12.2 g/dL (12.0-15.5) Hematocrit 37.4 % (36.0-47.0) Mean Corpuscular Volume 89 fL (79-100) Mean Corpuscular Hemoglobin 29 pg (25-35) Mean Corpuscular Hemoglobin Concent 33 g/dL (31-37) Red Cell Distribution Width 13.7 % (11.5-14.5) Platelet Count 256 x10^3/uL (140-400) Neutrophils (%) (Auto) 49 % (31-73) Lymphocytes (%) (Auto) 43 % (24-48) Monocytes (%) (Auto) 6 % (0-9) Eosinophils (%) (Auto) 2 % (0-3) Basophils (%) (Auto) 1 % (0-3) Neutrophils # (Auto) 4.2 x10^3uL (1.8-7.7) Lymphocytes # (Auto) 3.6 x10^3/uL (1.0-4.8) Monocytes # (Auto) 0.5 x10^3/uL (0.0-1.1) Eosinophils # (Auto) 0.1 x10^3/uL (0.0-0.7) Basophils # (Auto) 0.1 x10^3/uL (0.0-0.2) Maternal Serum HCG Beta Subunit 3 mIU/mL (0-5) Sodium Level 144 mmol/L (136-145) Potassium Level 2.9 mmol/L (3.5-5.1) Chloride Level 109 mmol/L (98-107) Carbon Dioxide Level 25 mmol/L (21-32) Anion Gap 10 (6-14) Blood Urea Nitrogen 10 mg/dL (7-20) Creatinine 0.7 mg/dL (0.6-1.0) Estimated GFR (Cockcroft-Gault) 109.5 BUN/Creatinine Ratio 14 (6-20) Glucose Level 148 mg/dL (70-99) Lactic Acid Level 0.9 mmol/L (0.4-2.0) Calcium Level 7.5 mg/dL (8.5-10.1) Total Bilirubin 0.1 mg/dL (0.2-1.0) Aspartate Amino Transf (AST/SGOT) 14 U/L (15-37) Alanine Aminotransferase (ALT/SGPT) 12 U/L (14-59) Alkaline Phosphatase 78 U/L (46-116) Troponin I Quantitative < 0.017 ng/mL (0.000-0.055) YO-Hyw-R-Type Natriuretic Peptide 37 pg/mL (0-124) Total Protein 5.4 g/dL (6.4-8.2) Albumin 2.3 g/dL (3.4-5.0) Albumin/Globulin Ratio 0.7 (1.0-1.7) Glucose (Fingerstick) 325 mg/dL (70-99) VTE Prophylaxis Ordered VTE Prophylaxis Devices: No VTE Pharmacological Prophylaxi: Yes Assessment/Plan Assessment/Plan acute bronchitis on asthma exaceration SIRS hypoxia morbid obesity, BMI 48 tobacco use disorder Dm2, exac by steroids in ER, will add Glargine and SSI, pulm consult, pulm toilet, nebs, abx, we discussed tobacco cessation and med compliance, and she told me she wasn't worried and that "God got me" MEGAN DEVRIES MD Nov 30, 2018 09:23
[2018-11-30] MEDS: predniSONE 20 MG TABLET PO SCH (09:30)
[2018-11-30] MEDS: POTASSIUM CHLORIDE 10 MEQ TABLET.ER. PO SCH (09:30)
[2018-11-30] MEDS ORDERED: DOXYCYCLINE HYCLATE 100 MG TABLET PO ONE (09:30)
[2018-11-30] MEDS: metFORMIN 500 MG TABLET PO SCH ×2 (10:00→17:22)
[2018-11-30] MEDS: LISINOPRIL 5 MG TABLET. PO SCH (10:00)
[2018-11-30 11:00] VITALS: BP 117/70
[2018-11-30] MEDS: IPRATRPIUM/ALBUTEROL 0.5/2.5MG 3 ML NEBU. NEB SCH ×4 (11:38→22:00)
[2018-11-30 15:17] VITALS: BP 117/61
--- NOTE | 2018-11-30 16:15 | PDOC ---
PULMONARY PROGRESS NOTES Vitals Vital Signs Date Time Temp Pulse Resp B/P (MAP) Pulse Ox O2 Delivery O2 Flow Rate FiO2 11/30/18 15:17 98.6 82 18 117/61 (79) 96 Nasal Cannula 2.0 98.6 Labs Laboratory Tests Test 11/30/18 00:07 11/30/18 07:18 11/30/18 11:05 White Blood Count 8.5 x10^3/uL (4.0-11.0) Red Blood Count 4.23 x10^6/uL (3.50-5.40) Hemoglobin 12.2 g/dL (12.0-15.5) Hematocrit 37.4 % (36.0-47.0) Mean Corpuscular Volume 89 fL (79-100) Mean Corpuscular Hemoglobin 29 pg (25-35) Mean Corpuscular Hemoglobin Concent 33 g/dL (31-37) Red Cell Distribution Width 13.7 % (11.5-14.5) Platelet Count 256 x10^3/uL (140-400) Neutrophils (%) (Auto) 49 % (31-73) Lymphocytes (%) (Auto) 43 % (24-48) Monocytes (%) (Auto) 6 % (0-9) Eosinophils (%) (Auto) 2 % (0-3) Basophils (%) (Auto) 1 % (0-3) Neutrophils # (Auto) 4.2 x10^3uL (1.8-7.7) Lymphocytes # (Auto) 3.6 x10^3/uL (1.0-4.8) Monocytes # (Auto) 0.5 x10^3/uL (0.0-1.1) Eosinophils # (Auto) 0.1 x10^3/uL (0.0-0.7) Basophils # (Auto) 0.1 x10^3/uL (0.0-0.2) Maternal Serum HCG Beta Subunit 3 mIU/mL (0-5) Sodium Level 144 mmol/L (136-145) Potassium Level 2.9 mmol/L (3.5-5.1) Chloride Level 109 mmol/L (98-107) Carbon Dioxide Level 25 mmol/L (21-32) Anion Gap 10 (6-14) Blood Urea Nitrogen 10 mg/dL (7-20) Creatinine 0.7 mg/dL (0.6-1.0) Estimated GFR (Cockcroft-Gault) 109.5 BUN/Creatinine Ratio 14 (6-20) Glucose Level 148 mg/dL (70-99) Lactic Acid Level 0.9 mmol/L (0.4-2.0) Calcium Level 7.5 mg/dL (8.5-10.1) Total Bilirubin 0.1 mg/dL (0.2-1.0) Aspartate Amino Transf (AST/SGOT) 14 U/L (15-37) Alanine Aminotransferase (ALT/SGPT) 12 U/L (14-59) Alkaline Phosphatase 78 U/L (46-116) Troponin I Quantitative < 0.017 ng/mL (0.000-0.055) PF-Iuc-Y-Type Natriuretic Peptide 37 pg/mL (0-124) Total Protein 5.4 g/dL (6.4-8.2) Albumin 2.3 g/dL (3.4-5.0) Albumin/Globulin Ratio 0.7 (1.0-1.7) Glucose (Fingerstick) 325 mg/dL (70-99) 369 mg/dL (70-99) Laboratory Tests Test 11/30/18 00:07 11/30/18 07:18 11/30/18 11:05 White Blood Count 8.5 x10^3/uL (4.0-11.0) Red Blood Count 4.23 x10^6/uL (3.50-5.40) Hemoglobin 12.2 g/dL (12.0-15.5) Hematocrit 37.4 % (36.0-47.0) Mean Corpuscular Volume 89 fL (79-100) Mean Corpuscular Hemoglobin 29 pg (25-35) Mean Corpuscular Hemoglobin Concent 33 g/dL (31-37) Red Cell Distribution Width 13.7 % (11.5-14.5) Platelet Count 256 x10^3/uL (140-400) Neutrophils (%) (Auto) 49 % (31-73) Lymphocytes (%) (Auto) 43 % (24-48) Monocytes (%) (Auto) 6 % (0-9) Eosinophils (%) (Auto) 2 % (0-3) Basophils (%) (Auto) 1 % (0-3) Neutrophils # (Auto) 4.2 x10^3uL (1.8-7.7) Lymphocytes # (Auto) 3.6 x10^3/uL (1.0-4.8) Monocytes # (Auto) 0.5 x10^3/uL (0.0-1.1) Eosinophils # (Auto) 0.1 x10^3/uL (0.0-0.7) Basophils # (Auto) 0.1 x10^3/uL (0.0-0.2) Maternal Serum HCG Beta Subunit 3 mIU/mL (0-5) Sodium Level 144 mmol/L (136-145) Potassium Level 2.9 mmol/L (3.5-5.1) Chloride Level 109 mmol/L (98-107) Carbon Dioxide Level 25 mmol/L (21-32) Anion Gap 10 (6-14) Blood Urea Nitrogen 10 mg/dL (7-20) Creatinine 0.7 mg/dL (0.6-1.0) Estimated GFR (Cockcroft-Gault) 109.5 BUN/Creatinine Ratio 14 (6-20) Glucose Level 148 mg/dL (70-99) Lactic Acid Level 0.9 mmol/L (0.4-2.0) Calcium Level 7.5 mg/dL (8.5-10.1) Total Bilirubin 0.1 mg/dL (0.2-1.0) Aspartate Amino Transf (AST/SGOT) 14 U/L (15-37) Alanine Aminotransferase (ALT/SGPT) 12 U/L (14-59) Alkaline Phosphatase 78 U/L (46-116) Troponin I Quantitative < 0.017 ng/mL (0.000-0.055) OS-Btt-X-Type Natriuretic Peptide 37 pg/mL (0-124) Total Protein 5.4 g/dL (6.4-8.2) Albumin 2.3 g/dL (3.4-5.0) Albumin/Globulin Ratio 0.7 (1.0-1.7) Glucose (Fingerstick) 325 mg/dL (70-99) 369 mg/dL (70-99) Medications Active Scripts Medications Dose Route/Sig Max Daily Dose Days Date Category Potassium Chloride 10 Meq Tablet.er 1 Tab PO DAILY 11/30/18 Reported Omeprazole 20 Mg Capsule.dr 1 Cap PO DAILY 11/30/18 Reported Combivent Respimat Inhal (Ipratropium/Albuterol Sulfate) 4 Gm Aer.w.adap 2 Puff INH QID 11/30/18 Reported Janumet Xr 50-1,000 Mg Tablet (Sitagliptin Phos/Metformin Hcl) 1 Each Tbmp.24hr 2 Tab PO DAILYWSUP 11/30/18 Reported Symbicort 160-4.5 Mcg Inhaler (Budesonide/Formoterol Fumarate) 10.2 Gm Hfa.aer.ad 1 Inh INH BID 11/30/18 Reported Levemir Flextouch (Insulin Detemir) 100 Unit/1 Ml Insuln.pen 25 Units SQ DAILY 11/30/18 Reported Novolog Flexpen (Insulin Aspart) 100 Unit/1 Ml Insuln.pen 20 Units SQ TID 11/30/18 Reported Metformin Hcl 1,000 Mg Tablet 1 Tab PO BID 11/30/18 Reported Montelukast Sodium Tablet (Montelukast Sodium) 10 Mg Tablet 1 Tab PO DAILY 11/30/18 Reported Amlodipine Besylate 10 Mg Tablet 1 Tab PO DAILY 11/30/18 Reported Simvastatin 10 Mg Tablet 1 Tab PO DAILY 11/30/18 Reported Naproxen 500 Mg Tablet 1 Tab PO BID 11/30/18 Reported Lisinopril 5 Mg Tablet 1 Tab PO DAILY 11/30/18 Reported Furosemide 20 Mg Tablet 1 Tab PO DAILY 11/30/18 Reported Impression . DICTATED AECOPD AGREE WITH CURRENT RX THANKS YVON HERNANDEZ MD Nov 30, 2018 16:15
[2018-11-30] MEDS: BUDESONIDE 0.5 MG/2 ML NEBU. NEB SCH (19:35)
[2018-11-30 19:46] VITALS: BP 136/78
[2018-11-30] MEDS ORDERED: SIMVASTATIN 10 MG TABLET PO SCH (21:00)
[2018-11-30] MEDS: LACTOBACILLUS RHAMNOSUS GG 1 CAPSULE. PO SCH (22:29)
[2018-11-30] MEDS: DOXYCYCLINE HYCLATE 100 MG TABLET PO SCH (22:32)
[2018-11-30 23:41] VITALS: BP 131/73
[2018-12-01 03:40] VITALS: BP 137/71
[2018-12-01 03:58] LABS: BASO # 0.1 x10^3/uL (0.0-0.2); BASO % 0 % (0-3); EOS % 0 % (0-3); HEMATOCRIT 38.4 % (36.0-47.0); LYMPH # 2.7 x10^3/uL (1.0-4.8); LYMPH % 20 % (24-48); MEAN CORPUSCULAR HEMOGLOBIN 29 pg (25-35); MEAN CORPUSCULAR HGB CONC 31 g/dL (31-37); MEAN CORPUSCULAR VOLUME 92 fL (79-100); MONO # 0.9 x10^3/uL (0.0-1.1); MONO % 7 % (0-9); NEUT # 9.7 x10^3uL (1.8-7.7); NEUT % 73 % (31-73); PLATELET COUNT 297 x10^3/uL (140-400); RED BLOOD COUNT 4.19 x10^6/uL (3.50-5.40); RED CELL DISTRIBUTION WIDTH 14.3 % (11.5-14.5); WHITE BLOOD COUNT 13.3 x10^3/uL (4.0-11.0)
[2018-12-01 04:45] LABS: ALBUMIN 2.8 g/dL (3.4-5.0); ALBUMIN/GLOBULIN RATIO 0.8 (1.0-1.7); CALCIUM 9.4 mg/dL (8.5-10.1); CREATININE 0.9 mg/dL (0.6-1.0); GFR 81.9; POTASSIUM 4.1 mmol/L (3.5-5.1); TOTAL BILIRUBIN 0.2 mg/dL (0.2-1.0); TOTAL PROTEIN 6.5 g/dL (6.4-8.2)
[2018-12-01 07:00] VITALS: BP 115/59
[2018-12-01] MEDS: BUDESONIDE 0.5 MG/2 ML NEBU. NEB SCH (07:33)
[2018-12-01] MEDS: IPRATRPIUM/ALBUTEROL 0.5/2.5MG 3 ML NEBU. NEB SCH ×2 (07:33→11:39)
[2018-12-01] MEDS: POTASSIUM CHLORIDE 10 MEQ TABLET.ER. PO SCH (08:00)
[2018-12-01] MEDS: INSULIN LISPRO 300 UNITS/3 ML INSULN.PEN. SQ SCH ×2 (08:00→08:35)
[2018-12-01] MEDS: amLODIPine BESYLATE 10 MG TABLET PO SCH (08:22)
[2018-12-01] MEDS: LACTOBACILLUS RHAMNOSUS GG 1 CAPSULE. PO SCH (08:22)
[2018-12-01] MEDS: predniSONE 20 MG TABLET PO SCH (08:22)
[2018-12-01] MEDS: LISINOPRIL 5 MG TABLET. PO SCH (08:23)
[2018-12-01] MEDS: MONTELUKAST SODIUM 10 MG TABLET. PO SCH (08:23)
[2018-12-01] MEDS: PANTOPRAZOLE 40 MG TABLET.DR. PO SCH (08:23)
[2018-12-01] MEDS: FUROSEMIDE 20 MG TABLET PO SCH (08:23)
[2018-12-01] MEDS: DOXYCYCLINE HYCLATE 100 MG TABLET PO SCH (08:23)
[2018-12-01] MEDS: metFORMIN 500 MG TABLET PO SCH (08:23)
[2018-12-01] MEDS: NAPROXEN 500 MG TABLET PO SCH (08:24)
[2018-12-01] MEDS: LINAGLIPTIN 5 MG TABLET PO SCH (08:24)
[2018-12-01] MEDS: INSULIN GLARGINE 300 UNITS/3 ML INSULN.PEN. SQ SCH (08:35)
--- NOTE | 2018-12-01 09:34 | CONS ---
DATE OF CONSULTATION: 11/30/2018 ATTENDING PHYSICIAN: Nitza Polo MD. REASON FOR CONSULTATION: The patient was seen in pulmonary consultation at the request of Dr. Polo for increasing shortness of air. HISTORY OF PRESENT ILLNESS: The patient is a 43-year-old female with a history of tobacco use, smokes approximately half a pack of cigarettes a day. She has had previous allergy testing, no immunotherapy, presented with a 2-3 day history of increasing shortness of breath, was using her rescue inhaler more than usual. No significant improvement. She has a cough productive of green sputum. No hemoptysis. She normally follows with [facility]. 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 She normally utilizes Combivent, Symbicort and albuterol. She does have seasonal allergies. She is on Singulair. PAST MEDICAL HISTORY: Remarkable for 1. COPD with an asthma component, allergies. 2. Diabetes. 3. Hypertension. 4. Tobacco dependent. 5. Morbid obesity, body mass index of 48. REVIEW OF SYSTEMS: As indicated above, otherwise, a 10-point system was reviewed and negative. CURRENT MEDICATIONS: List was reviewed. ALLERGIES: SULFAMETHOXAZOLE, TRIMETHOPRIM. PHYSICAL EXAMINATION: GENERAL: Morbid obese individual in no significant respiratory distress, currently on 2 liters. HEENT: Eyes, the sclerae were nonicteric. NECK: Jugular venous distention was not elevated. No lymphadenopathy. CHEST: Full expansion. LUNGS: Coarse breath sounds, expiratory wheeze, poor airway flow. Prolonged expiratory phase. CARDIOVASCULAR: Regular rate and rhythm with S1, S2, no S3. ABDOMEN: Obese. EXTREMITIES: Obese. NEUROLOGIC: The patient was awake, alert, following commands. A detailed neuro exam was not performed. LABORATORY DATA: Reviewed. White count was normal. Hemoglobin and hematocrit were noted. Electrolytes were noted. Potassium is low. Albumin was low. Chest x-ray showed no infiltrates. IMPRESSION: 1. Acute exacerbation of chronic obstructive pulmonary disease. 2. Tobacco dependent. 3. Acute nonspecific bronchitis. 4. Morbid obesity. PLAN: 1. Continue current medical regimen, nebulized treatments. 2. Doxycycline for nonspecific bronchitis. 3. Steroids. 4. Monitor blood sugars. 5. The patient instructed on the importance of discontinuing tobacco. I do appreciate the privilege in sharing in the patient's care. YVON HERNANDEZ MD DR: Jeri JOB#: [id number] / [id number]
--- NOTE | 2018-12-01 10:34 | PDOC ---
PULMONARY PROGRESS NOTES Subjective pt feels better less soa Vitals Vital Signs Date Time Temp Pulse Resp B/P (MAP) Pulse Ox O2 Delivery O2 Flow Rate FiO2 12/01/18 08:23 78 115/59 12/01/18 08:00 Nasal Cannula 12/01/18 07:33 95 12/01/18 07:00 98.6 20 98.6 11/30/18 20:10 2.0 ROS: No Nausea, No Chest Pain, No Abdominal Pain, No Increase Cough Lungs: Clear Cardiovascular: S1, S2 Abdomen: Soft Neuro Exam: Alert Extremities: No Edema Skin: Warm Labs Laboratory Tests Test 11/30/18 00:07 11/30/18 07:18 11/30/18 11:05 11/30/18 16:51 White Blood Count 8.5 x10^3/uL (4.0-11.0) Red Blood Count 4.23 x10^6/uL (3.50-5.40) Hemoglobin 12.2 g/dL (12.0-15.5) Hematocrit 37.4 % (36.0-47.0) Mean Corpuscular Volume 89 fL (79-100) Mean Corpuscular Hemoglobin 29 pg (25-35) Mean Corpuscular Hemoglobin Concent 33 g/dL (31-37) Red Cell Distribution Width 13.7 % (11.5-14.5) Platelet Count 256 x10^3/uL (140-400) Neutrophils (%) (Auto) 49 % (31-73) Lymphocytes (%) (Auto) 43 % (24-48) Monocytes (%) (Auto) 6 % (0-9) Eosinophils (%) (Auto) 2 % (0-3) Basophils (%) (Auto) 1 % (0-3) Neutrophils # (Auto) 4.2 x10^3uL (1.8-7.7) Lymphocytes # (Auto) 3.6 x10^3/uL (1.0-4.8) Monocytes # (Auto) 0.5 x10^3/uL (0.0-1.1) Eosinophils # (Auto) 0.1 x10^3/uL (0.0-0.7) Basophils # (Auto) 0.1 x10^3/uL (0.0-0.2) Maternal Serum HCG Beta Subunit 3 mIU/mL (0-5) Sodium Level 144 mmol/L (136-145) Potassium Level 2.9 mmol/L (3.5-5.1) Chloride Level 109 mmol/L (98-107) Carbon Dioxide Level 25 mmol/L (21-32) Anion Gap 10 (6-14) Blood Urea Nitrogen 10 mg/dL (7-20) Creatinine 0.7 mg/dL (0.6-1.0) Estimated GFR (Cockcroft-Gault) 109.5 BUN/Creatinine Ratio 14 (6-20) Glucose Level 148 mg/dL (70-99) Lactic Acid Level 0.9 mmol/L (0.4-2.0) Calcium Level 7.5 mg/dL (8.5-10.1) Total Bilirubin 0.1 mg/dL (0.2-1.0) Aspartate Amino Transf (AST/SGOT) 14 U/L (15-37) Alanine Aminotransferase (ALT/SGPT) 12 U/L (14-59) Alkaline Phosphatase 78 U/L (46-116) Troponin I Quantitative < 0.017 ng/mL (0.000-0.055) KH-Qes-Y-Type Natriuretic Peptide 37 pg/mL (0-124) Total Protein 5.4 g/dL (6.4-8.2) Albumin 2.3 g/dL (3.4-5.0) Albumin/Globulin Ratio 0.7 (1.0-1.7) Glucose (Fingerstick) 325 mg/dL (70-99) 369 mg/dL (70-99) 190 mg/dL (70-99) Test 11/30/18 20:50 12/01/18 03:40 12/01/18 06:57 Glucose (Fingerstick) 153 mg/dL (70-99) 139 mg/dL (70-99) White Blood Count 13.3 x10^3/uL (4.0-11.0) Red Blood Count 4.19 x10^6/uL (3.50-5.40) Hemoglobin 12.0 g/dL (12.0-15.5) Hematocrit 38.4 % (36.0-47.0) Mean Corpuscular Volume 92 fL (79-100) Mean Corpuscular Hemoglobin 29 pg (25-35) Mean Corpuscular Hemoglobin Concent 31 g/dL (31-37) Red Cell Distribution Width 14.3 % (11.5-14.5) Platelet Count 297 x10^3/uL (140-400) Neutrophils (%) (Auto) 73 % (31-73) Lymphocytes (%) (Auto) 20 % (24-48) Monocytes (%) (Auto) 7 % (0-9) Eosinophils (%) (Auto) 0 % (0-3) Basophils (%) (Auto) 0 % (0-3) Neutrophils # (Auto) 9.7 x10^3uL (1.8-7.7) Lymphocytes # (Auto) 2.7 x10^3/uL (1.0-4.8) Monocytes # (Auto) 0.9 x10^3/uL (0.0-1.1) Eosinophils # (Auto) 0.0 x10^3/uL (0.0-0.7) Basophils # (Auto) 0.1 x10^3/uL (0.0-0.2) Sodium Level 144 mmol/L (136-145) Potassium Level 4.1 mmol/L (3.5-5.1) Chloride Level 107 mmol/L (98-107) Carbon Dioxide Level 29 mmol/L (21-32) Anion Gap 8 (6-14) Blood Urea Nitrogen 15 mg/dL (7-20) Creatinine 0.9 mg/dL (0.6-1.0) Estimated GFR (Cockcroft-Gault) 81.9 BUN/Creatinine Ratio 17 (6-20) Glucose Level 149 mg/dL (70-99) Calcium Level 9.4 mg/dL (8.5-10.1) Total Bilirubin 0.2 mg/dL (0.2-1.0) Aspartate Amino Transf (AST/SGOT) 10 U/L (15-37) Alanine Aminotransferase (ALT/SGPT) 12 U/L (14-59) Alkaline Phosphatase 89 U/L (46-116) Total Protein 6.5 g/dL (6.4-8.2) Albumin 2.8 g/dL (3.4-5.0) Albumin/Globulin Ratio 0.8 (1.0-1.7) Laboratory Tests Test 11/30/18 11:05 11/30/18 16:51 11/30/18 20:50 12/01/18 03:40 Glucose (Fingerstick) 369 mg/dL (70-99) 190 mg/dL (70-99) 153 mg/dL (70-99) White Blood Count 13.3 x10^3/uL (4.0-11.0) Red Blood Count 4.19 x10^6/uL (3.50-5.40) Hemoglobin 12.0 g/dL (12.0-15.5) Hematocrit 38.4 % (36.0-47.0) Mean Corpuscular Volume 92 fL (79-100) Mean Corpuscular Hemoglobin 29 pg (25-35) Mean Corpuscular Hemoglobin Concent 31 g/dL (31-37) Red Cell Distribution Width 14.3 % (11.5-14.5) Platelet Count 297 x10^3/uL (140-400) Neutrophils (%) (Auto) 73 % (31-73) Lymphocytes (%) (Auto) 20 % (24-48) Monocytes (%) (Auto) 7 % (0-9) Eosinophils (%) (Auto) 0 % (0-3) Basophils (%) (Auto) 0 % (0-3) Neutrophils # (Auto) 9.7 x10^3uL (1.8-7.7) Lymphocytes # (Auto) 2.7 x10^3/uL (1.0-4.8) Monocytes # (Auto) 0.9 x10^3/uL (0.0-1.1) Eosinophils # (Auto) 0.0 x10^3/uL (0.0-0.7) Basophils # (Auto) 0.1 x10^3/uL (0.0-0.2) Sodium Level 144 mmol/L (136-145) Potassium Level 4.1 mmol/L (3.5-5.1) Chloride Level 107 mmol/L (98-107) Carbon Dioxide Level 29 mmol/L (21-32) Anion Gap 8 (6-14) Blood Urea Nitrogen 15 mg/dL (7-20) Creatinine 0.9 mg/dL (0.6-1.0) Estimated GFR (Cockcroft-Gault) 81.9 BUN/Creatinine Ratio 17 (6-20) Glucose Level 149 mg/dL (70-99) Calcium Level 9.4 mg/dL (8.5-10.1) Total Bilirubin 0.2 mg/dL (0.2-1.0) Aspartate Amino Transf (AST/SGOT) 10 U/L (15-37) Alanine Aminotransferase (ALT/SGPT) 12 U/L (14-59) Alkaline Phosphatase 89 U/L (46-116) Total Protein 6.5 g/dL (6.4-8.2) Albumin 2.8 g/dL (3.4-5.0) Albumin/Globulin Ratio 0.8 (1.0-1.7) Test 12/01/18 06:57 Glucose (Fingerstick) 139 mg/dL (70-99) Medications Active Scripts Medications Dose Route/Sig Max Daily Dose Days Date Category Potassium Chloride 10 Meq Tablet.er 1 Tab PO DAILY 11/30/18 Reported Omeprazole 20 Mg Capsule.dr 1 Cap PO DAILY 11/30/18 Reported Combivent Respimat Inhal (Ipratropium/Albuterol Sulfate) 4 Gm Aer.w.adap 2 Puff INH QID 11/30/18 Reported Janumet Xr 50-1,000 Mg Tablet (Sitagliptin Phos/Metformin Hcl) 1 Each Tbmp.24hr 2 Tab PO DAILYWSUP 11/30/18 Reported Symbicort 160-4.5 Mcg Inhaler (Budesonide/Formoterol Fumarate) 10.2 Gm Hfa.aer.ad 1 Inh INH BID 11/30/18 Reported Levemir Flextouch (Insulin Detemir) 100 Unit/1 Ml Insuln.pen 25 Units SQ DAILY 11/30/18 Reported Novolog Flexpen (Insulin Aspart) 100 Unit/1 Ml Insuln.pen 20 Units SQ TID 11/30/18 Reported Metformin Hcl 1,000 Mg Tablet 1 Tab PO BID 11/30/18 Reported Montelukast Sodium Tablet (Montelukast Sodium) 10 Mg Tablet 1 Tab PO DAILY 11/30/18 Reported Amlodipine Besylate 10 Mg Tablet 1 Tab PO DAILY 11/30/18 Reported Simvastatin 10 Mg Tablet 1 Tab PO DAILY 11/30/18 Reported Naproxen 500 Mg Tablet 1 Tab PO BID 11/30/18 Reported Lisinopril 5 Mg Tablet 1 Tab PO DAILY 11/30/18 Reported Furosemide 20 Mg Tablet 1 Tab PO DAILY 11/30/18 Reported Impression . IMPRESSION: 1. Acute exacerbation of chronic obstructive pulmonary disease. 2. Tobacco dependent. 3. Acute nonspecific bronchitis. 4. Morbid obesity. Plan . d/c today follow up in office 1. Continue current medical regimen, nebulized treatments. 2. Doxycycline for nonspecific bronchitis. 3. Steroids. 4. Monitor blood sugars. 5. The patient instructed on the importance of discontinuing tobacco. YVON HERNANDEZ MD Dec 01, 2018 10:34
[2018-12-01] MEDS ORDERED: PRED-220 PO (10:41)
[2018-12-01] MEDS ORDERED: GUAI600T47 PO (10:41)
[2018-12-01] MEDS ORDERED: DOXY100T PO (10:41)
--- NOTE | 2018-12-01 10:44 | PDOC3 ---
Discharge Summary Visit Information Date of Admission: Nov 30, 2018 Date of Discharge: Dec 01, 2018 Admitting Diagnosis: asthma exarbation Final Diagnosis acute bronchitis on asthma exaceration SIRS/sepsis, bronchitis, hypoxia morbid obesity, BMI 48 tobacco use disorder Dm2, Brief Hospital Course Allergies Allergies Coded Allergies Type Severity Reaction Last Updated Verified sulfamethoxazole Allergy Intermediate HIVES 11/29/18 Yes trimethoprim Allergy Intermediate HIVES 11/29/18 Yes Vital Signs Vital Signs Date Time Temp Pulse Resp B/P (MAP) Pulse Ox O2 Delivery O2 Flow Rate FiO2 12/01/18 08:23 78 115/59 12/01/18 08:00 Nasal Cannula 12/01/18 07:33 95 12/01/18 07:00 98.6 20 98.6 11/30/18 20:10 2.0 Lab Results Laboratory Tests Test 11/30/18 00:07 11/30/18 07:18 11/30/18 11:05 11/30/18 16:51 White Blood Count 8.5 x10^3/uL (4.0-11.0) Red Blood Count 4.23 x10^6/uL (3.50-5.40) Hemoglobin 12.2 g/dL (12.0-15.5) Hematocrit 37.4 % (36.0-47.0) Mean Corpuscular Volume 89 fL (79-100) Mean Corpuscular Hemoglobin 29 pg (25-35) Mean Corpuscular Hemoglobin Concent 33 g/dL (31-37) Red Cell Distribution Width 13.7 % (11.5-14.5) Platelet Count 256 x10^3/uL (140-400) Neutrophils (%) (Auto) 49 % (31-73) Lymphocytes (%) (Auto) 43 % (24-48) Monocytes (%) (Auto) 6 % (0-9) Eosinophils (%) (Auto) 2 % (0-3) Basophils (%) (Auto) 1 % (0-3) Neutrophils # (Auto) 4.2 x10^3uL (1.8-7.7) Lymphocytes # (Auto) 3.6 x10^3/uL (1.0-4.8) Monocytes # (Auto) 0.5 x10^3/uL (0.0-1.1) Eosinophils # (Auto) 0.1 x10^3/uL (0.0-0.7) Basophils # (Auto) 0.1 x10^3/uL (0.0-0.2) Maternal Serum HCG Beta Subunit 3 mIU/mL (0-5) Sodium Level 144 mmol/L (136-145) Potassium Level 2.9 mmol/L (3.5-5.1) Chloride Level 109 mmol/L (98-107) Carbon Dioxide Level 25 mmol/L (21-32) Anion Gap 10 (6-14) Blood Urea Nitrogen 10 mg/dL (7-20) Creatinine 0.7 mg/dL (0.6-1.0) Estimated GFR (Cockcroft-Gault) 109.5 BUN/Creatinine Ratio 14 (6-20) Glucose Level 148 mg/dL (70-99) Lactic Acid Level 0.9 mmol/L (0.4-2.0) Calcium Level 7.5 mg/dL (8.5-10.1) Total Bilirubin 0.1 mg/dL (0.2-1.0) Aspartate Amino Transf (AST/SGOT) 14 U/L (15-37) Alanine Aminotransferase (ALT/SGPT) 12 U/L (14-59) Alkaline Phosphatase 78 U/L (46-116) Troponin I Quantitative < 0.017 ng/mL (0.000-0.055) GP-Doq-S-Type Natriuretic Peptide 37 pg/mL (0-124) Total Protein 5.4 g/dL (6.4-8.2) Albumin 2.3 g/dL (3.4-5.0) Albumin/Globulin Ratio 0.7 (1.0-1.7) Glucose (Fingerstick) 325 mg/dL (70-99) 369 mg/dL (70-99) 190 mg/dL (70-99) Test 11/30/18 20:50 12/01/18 03:40 12/01/18 06:57 Glucose (Fingerstick) 153 mg/dL (70-99) 139 mg/dL (70-99) White Blood Count 13.3 x10^3/uL (4.0-11.0) Red Blood Count 4.19 x10^6/uL (3.50-5.40) Hemoglobin 12.0 g/dL (12.0-15.5) Hematocrit 38.4 % (36.0-47.0) Mean Corpuscular Volume 92 fL (79-100) Mean Corpuscular Hemoglobin 29 pg (25-35) Mean Corpuscular Hemoglobin Concent 31 g/dL (31-37) Red Cell Distribution Width 14.3 % (11.5-14.5) Platelet Count 297 x10^3/uL (140-400) Neutrophils (%) (Auto) 73 % (31-73) Lymphocytes (%) (Auto) 20 % (24-48) Monocytes (%) (Auto) 7 % (0-9) Eosinophils (%) (Auto) 0 % (0-3) Basophils (%) (Auto) 0 % (0-3) Neutrophils # (Auto) 9.7 x10^3uL (1.8-7.7) Lymphocytes # (Auto) 2.7 x10^3/uL (1.0-4.8) Monocytes # (Auto) 0.9 x10^3/uL (0.0-1.1) Eosinophils # (Auto) 0.0 x10^3/uL (0.0-0.7) Basophils # (Auto) 0.1 x10^3/uL (0.0-0.2) Sodium Level 144 mmol/L (136-145) Potassium Level 4.1 mmol/L (3.5-5.1) Chloride Level 107 mmol/L (98-107) Carbon Dioxide Level 29 mmol/L (21-32) Anion Gap 8 (6-14) Blood Urea Nitrogen 15 mg/dL (7-20) Creatinine 0.9 mg/dL (0.6-1.0) Estimated GFR (Cockcroft-Gault) 81.9 BUN/Creatinine Ratio 17 (6-20) Glucose Level 149 mg/dL (70-99) Calcium Level 9.4 mg/dL (8.5-10.1) Total Bilirubin 0.2 mg/dL (0.2-1.0) Aspartate Amino Transf (AST/SGOT) 10 U/L (15-37) Alanine Aminotransferase (ALT/SGPT) 12 U/L (14-59) Alkaline Phosphatase 89 U/L (46-116) Total Protein 6.5 g/dL (6.4-8.2) Albumin 2.8 g/dL (3.4-5.0) Albumin/Globulin Ratio 0.8 (1.0-1.7) Laboratory Tests Test 11/30/18 11:05 11/30/18 16:51 11/30/18 20:50 12/01/18 03:40 Glucose (Fingerstick) 369 mg/dL (70-99) 190 mg/dL (70-99) 153 mg/dL (70-99) White Blood Count 13.3 x10^3/uL (4.0-11.0) Red Blood Count 4.19 x10^6/uL (3.50-5.40) Hemoglobin 12.0 g/dL (12.0-15.5) Hematocrit 38.4 % (36.0-47.0) Mean Corpuscular Volume 92 fL (79-100) Mean Corpuscular Hemoglobin 29 pg (25-35) Mean Corpuscular Hemoglobin Concent 31 g/dL (31-37) Red Cell Distribution Width 14.3 % (11.5-14.5) Platelet Count 297 x10^3/uL (140-400) Neutrophils (%) (Auto) 73 % (31-73) Lymphocytes (%) (Auto) 20 % (24-48) Monocytes (%) (Auto) 7 % (0-9) Eosinophils (%) (Auto) 0 % (0-3) Basophils (%) (Auto) 0 % (0-3) Neutrophils # (Auto) 9.7 x10^3uL (1.8-7.7) Lymphocytes # (Auto) 2.7 x10^3/uL (1.0-4.8) Monocytes # (Auto) 0.9 x10^3/uL (0.0-1.1) Eosinophils # (Auto) 0.0 x10^3/uL (0.0-0.7) Basophils # (Auto) 0.1 x10^3/uL (0.0-0.2) Sodium Level 144 mmol/L (136-145) Potassium Level 4.1 mmol/L (3.5-5.1) Chloride Level 107 mmol/L (98-107) Carbon Dioxide Level 29 mmol/L (21-32) Anion Gap 8 (6-14) Blood Urea Nitrogen 15 mg/dL (7-20) Creatinine 0.9 mg/dL (0.6-1.0) Estimated GFR (Cockcroft-Gault) 81.9 BUN/Creatinine Ratio 17 (6-20) Glucose Level 149 mg/dL (70-99) Calcium Level 9.4 mg/dL (8.5-10.1) Total Bilirubin 0.2 mg/dL (0.2-1.0) Aspartate Amino Transf (AST/SGOT) 10 U/L (15-37) Alanine Aminotransferase (ALT/SGPT) 12 U/L (14-59) Alkaline Phosphatase 89 U/L (46-116) Total Protein 6.5 g/dL (6.4-8.2) Albumin 2.8 g/dL (3.4-5.0) Albumin/Globulin Ratio 0.8 (1.0-1.7) Test 12/01/18 06:57 Glucose (Fingerstick) 139 mg/dL (70-99) Brief Hospital Course Ms. Rea is a 43 old admti for cough, hypoxia, dyspnea and wheeze, steroids, abx, nebs, better pulm consult, pulm toilet, we discussed tobacco cessation and med compliance, Discharge Information Condition at Discharge: Improved Follow Up: Weeks Disposition/Orders: D/C to Home Scheduled Amlodipine Besylate (Amlodipine Besylate) 10 Mg Tablet, 1 TAB PO DAILY for HTN, (Reported) Entered as Reported by: SHANTEL ENRIQUEZ RN on 11/30/18514 Last Action: Continued on 11/30/18855 by MEGAN DEVRIES Budesonide/Formoterol Fumarate (Symbicort 160-4.5 Mcg Inhaler) 10.2 Gm Hfa.aer.ad, 1 INH INH BID for COPD, (Reported) Entered as Reported by: SHANTEL ENRIQUEZ RN on 11/30/18514 Last Action: Converted on 11/30/18855 by MEGAN DEVRIES Doxycycline Hyclate (Doxycycline Hyclate) 100 Mg Tablet, 100 MG PO BID for bronchitis, asthma exac. , #14 Prescribed by: MEGAN DEVRIES on 12/01/18 1041 Furosemide (Furosemide) 20 Mg Tablet, 1 TAB PO DAILY for diuresis, (Reported) Entered as Reported by: SHANTEL ENRIQUEZ RN on 11/30/18514 Last Action: Continued on 11/30/18855 by MEGAN DEVRIES Guaifenesin (Mucinex) 600 Mg Tablet.er, 600 MG PO BID for cough and congestion, #10 Prescribed by: MEGAN DEVRIES on 12/01/18 104 Insulin Aspart (Novolog Flexpen) 100 Unit/1 Ml Insuln.pen, 20 UNITS SQ TID for Diabetes, (Reported) Entered as Reported by: SHANTEL ENRIQUEZ RN on 11/30/18514 Last Action: Converted on 11/30/18855 by MEGAN DEVRIES Insulin Detemir (Levemir Flextouch) 100 Unit/1 Ml Insuln.pen, 25 UNITS SQ DAILY for Diabetes, (Reported) Entered as Reported by: SHANTEL ENRIQUEZ RN on 11/30/18514 Last Action: HELD on 11/30/18855 by MEGAN DEVRIES Ipratropium/Albuterol Sulfate (Combivent Respimat Inhal) 4 Gm Aer.w.adap, 2 PUFF INH QID for COPD, (Reported) Entered as Reported by: SHANTEL ENRIQUEZ RN on 11/30/18514 Last Action: Converted on 11/30/18855 by MEGAN DEVRIES Lisinopril (Lisinopril) 5 Mg Tablet, 1 TAB PO DAILY for HTN, (Reported) Entered as Reported by: SHANTEL ENRIQUEZ RN on 11/30/18514 Last Action: Converted on 11/30/18855 by MEGAN DEVRIES Metformin Hcl (Metformin Hcl) 1,000 Mg Tablet, 1 TAB PO BID for Diabetes, (Reported) Entered as Reported by: SHANTEL ENRIQUEZ RN on 11/30/18514 Last Action: Converted on 11/30/18855 by MEGAN DEVRIES Montelukast Sodium (Montelukast Sodium Tablet) 10 Mg Tablet, 1 TAB PO DAILY for COPD, (Reported) Entered as Reported by: SHANTEL ENRIQUEZ RN on 11/30/18514 Last Action: Converted on 11/30/18855 by MEGAN DEVRIES Naproxen (Naproxen) 500 Mg Tablet, 1 TAB PO BID for pain, (Reported) Entered as Reported by: SHANTEL ENRIQUEZ RN on 11/30/18514 Last Action: Converted on 11/30/18855 by MEGAN DEVRIES Omeprazole (Omeprazole) 20 Mg Capsule.dr, 1 CAP PO DAILY for GERD, (Reported) Entered as Reported by: SHANTEL ENRIQUEZ RN on 11/30/18514 Last Action: Converted on 11/30/18855 by MEGAN DEVRIES Potassium Chloride (Potassium Chloride) 10 Meq Tablet.er, 1 TAB PO DAILY for Supplement, (Reported) Entered as Reported by: SHANTEL ENRIQUEZ RN on 11/30/18514 Last Action: Converted on 11/30/18855 by MEGAN DEVRIES Prednisone (Prednisone ) 10 Mg Tablet, 10 MG PO UD for asthma exacerbation, #28 Ref 0 take 4 tablets by mouth daily for 4 days, then take 3 tablets by mouth daily for 2 days, then take 2 tablets by mouth daily for 2 days, then take 1 tablets by mouth daily for 2 days, then stop. Prescribed by: MEGAN DEVRIES on 12/01/18 1041 Simvastatin (Simvastatin) 10 Mg Tablet, 1 TAB PO DAILY for cholesterol, (Reported) Entered as Reported by: SHANTEL ENRIQUEZ RN on 11/30/18514 Last Action: Continued on 11/30/18855 by MEGAN DEVRIES Sitagliptin Phos/Metformin Hcl (Janumet Xr 50-1,000 Mg Tablet) 1 Each Tbmp.24hr, 2 TAB PO DAILYWSUP for Diabetes, (Reported) Entered as Reported by: SHANTEL ENRIQUEZ RN on 11/30/18514 Last Action: Converted on 11/30/18855 by MEGAN DEVRIES Patient Instructions Patient Instructions > 30 min face to face and coordination of MEGAN Emerson MD Dec 01, 2018 10:44
[2018-12-01 11:00] VITALS: BP 126/64
--- NOTE | 2018-12-01 13:40 | NUR ---
Discharge Note: CYNDI LAM [address] Discharge instructions and discharge home medications reviewed with Patient and a copy given. All questions have been answered and understanding verbalized. The following instructions and handouts were given: COPD, Diabetic meal planning Discontinued lines and drains: Peripheral IV intact. Patient discharged to Home or Self Care withSelfvia Wheelchair
[2018-12-01 23:12] LABS: HEMOGLOBIN A1C 9.3 % (4.8-5.6)
== END 2018-12-01 12:45 | disposition home or self-care (01) | DRG 871 ==
LOC: ER 22:41 → MERGE 23:55 → 6 SOUTH 23:55
PROVIDERS: ADMIT Internal Medicine; ATTEND Internal Medicine
DX: A41.9 Sepsis, unspecified organism (principal); J96.01 Acute respiratory failure with hypoxia; J44.1 Chronic obstructive pulmonary disease with (acute) exacerbation; Z68.42 Body mass index [BMI] 45.0-49.9, adult; J44.0 Chronic obstructive pulmonary disease with (acute) lower respiratory infection; E66.01 Morbid (severe) obesity due to excess calories; J20.9 Acute bronchitis, unspecified; E11.9 Type 2 diabetes mellitus without complications; I10 Essential (primary) hypertension; F17.210 Nicotine dependence, cigarettes, uncomplicated; Z88.8 Allergy status to other drugs, medicaments and biological substances; Z82.49 Family history of ischemic heart disease and other diseases of the circulatory system
CPT/HCPCS: 36415; 71045; 80053; 82962; 83036; 83605; 83880; 84484; 84702; 85025; 87040; 93005; 94640; 94644; 94760; 96374; 96375; J0696; J1815; J2930; J7512; J7613; J7620; J7626; Q0177; 99285-25

== ENCOUNTER 2018-12-04 19:22 | Emergency (ER) | payer MEDICAID, OTHER ==
[~2018-12-04] VITALS: Ht 167.6 cm; Wt 132.9 kg
[~2018-12-04 19:22] MED LIST changes: +BUDE10.2 INH; +GUAI600T47 PO; +INSU100I17 SQ; +IPRA4AER INH; +MONT10TA9 PO; +NAPR-514 PO; +OMEP20CA10 PO; +POTA10TA11 PO; +SIMV10TA3 PO; +SITA1TBM4 PO
[2018-12-04 19:50] VITALS: BP 164/89
[2018-12-04] MEDS ORDERED: PERM60CR12 TP (21:28)
--- NOTE | 2018-12-04 21:29 | PHYS DOC ---
Past Medical History Past Medical History: No Pertinent History, Asthma, Diabetes-Type I, Hype rtension (ROSLAIE FAJARDO APRN) Past Surgical History: No Surgical History (ROSALIE FAJARDO APRN) Additional Information: nonsmoker Alcohol Use: None Drug Use: None (ROSALIE FAJARDO APRN) Adult General Chief Complaint Chief Complaint: SKIN RASH/ABSCESS HPI HPI Patient is a 43-year-old female who presents with extreme itching and rash that has been ongoing since this past . The patient was seen here last and has been being treated for an allergic reaction. She has itching that is 10 out of 10 in severity. She has tried hydrocortisone cream and Benadryl and has been on prednisone. These medications have worked patient is still having extreme itching and states it is not improved since starting on . She has itching on bilateral arms and chest in the folds of her fingers hands and at the abdomen folds at the waist.She also has them on the foot. (ROSALIE FAJARDO APRN) Review of Systems Review of Systems Constitutional: Denies fever or chills [] Eyes: reports eye redness, denies eye [] HENT: Denies nasal congestion or sore throat [] Respiratory: Denies cough or shortness of breath [] Cardiovascular: Denies chest pain, or syncope GI: Denies abdominal pain, nausea, vomiting, bloody stools or diarrhea [] : Denies dysuria or hematuria [] Musculoskeletal: Denies back pain or joint pain [] Integument: Reports rash. Denies skin lesions [] Neurologic: Denies headache, focal weakness or sensory changes [] Endocrine: Denies polyuria or polydipsia [] Complete systems were reviewed and found to be within normal limits, except as documented in this note. (ROSALIE FAJARDO APRN) Current Medications Current Medications Current Medications Medications (Trade) Dose Ordered Sig/Rock Start Time Stop Time Status Last Admin Dose Admin Albuterol/ Ipratropium (Duoneb) 3 ml 1X ONCE 12/04/18 22:00 12/04/18 22:01 DC 12/04/18 21:44 3 ML Dexamethasone Sodium Phosphate (Decadron) 10 mg ONCE ONCE 12/04/18 22:00 12/04/18 22:01 DC 12/04/18 22:00 10 MG Famotidine (Pepcid) 20 mg 1X ONCE 12/04/18 22:00 12/04/18 22:01 DC 12/04/18 22:00 20 MG (ROSALIE LAMB DO) Allergies Allergies Allergies Coded Allergies Type Severity Reaction Last Updated Verified sulfamethoxazole Allergy Intermediate HIVES 11/29/18 Yes trimethoprim Allergy Intermediate HIVES 11/29/18 Yes (ROSALIE LAMB DO) Physical Exam Physical Exam Constitutional: Well developed, well nourished, no acute distress, non-toxic appearance. [] HENT: Normocephalic, atraumatic, oropharynx moist, no oral exudates, nose normal. [] Eyes: PERRLA, conjunctiva red, no discharge. [] Neck: Normal range of motion, no tenderness, supple, no stridor. [] Cardiovascular:Heart rate regular rhythm, no murmur [] Lungs & Thorax: Bilateral breath sounds with wheezing diffusely Abdomen: Soft, no tenderness, no masses, no pulsatile masses. [] Skin: Warm, dry, erythema, has linear rash. [] Back: No tenderness, no CVA tenderness. [] Extremities: No tenderness, no cyanosis, no clubbing, ROM intact. [] Neurologic: Alert and oriented X 3, normal motor function, normal sensory function, no focal deficits noted. [] Psychologic: Affect normal, judgement normal, mood normal. [] (ROSALIE FAJARDO APRN) Current Patient Data Vital Signs Vital Signs Date Time Temp Pulse Resp B/P (MAP) Pulse Ox O2 Delivery O2 Flow Rate FiO2 12/04/18 21:44 96 Room Air 12/04/18 19:50 97.7 96 18 164/89 (114) 97.7 (ROSALIE LAMB DO) EKG EKG [] (ROSALIE FAJARDO APRN) Radiology/Procedures Radiology/Procedures [] (ROSALIE FAJARDO APRN) Course & Med Decision Making Course & Med Decision Making Pertinent Labs and Imaging studies reviewed. (See chart for details) The pt has continued to have rash since . Rash looks similar to scabies. Will treat for scabies and also treat with Pepcid (wasn't tried) and dexamethasone (different steroid) in case it is an allergic reaction. Will also treat her wheezing with a duo-neb. Patient is agreeable to plan. (ROSALIE FAJARDO APRN) Dragon Disclaimer Dragon Disclaimer This electronic medical record was generated, in whole or in part, using a voice recognition dictation system. (ROSALIE FAJARDO APRN) Departure Departure Impression: Primary Impression: Scabies Additional Impression: Asthma exacerbation Disposition: HOME, SELF-CARE Condition: STABLE Referrals: UNKNOWN PCP NAME (PCP) Patient Instructions: Scabies Additional Instructions: apply thin layer of cream to ALL skin surfaces from neck to toes for 8-14 hours then wash off, repeat in 1 week avoid contact with eyes and mucous membranes. If symptoms don't improve come back to ER. Scripts Permethrin (PERMETHRIN) 60 Gm Cream..g. 1 JOHNATHAN TP ONCE, #60 GM 1 Refill apply thin layer to ALL skin surfaces from neck to toes for 8-14 hours then wash off, repeat in 1 week ? avoid contact with eyes and mucous membranes Prov: ROSALIE FAJARDO APRN 12/04/18 Attending Signature Attending Signature I have reviewed the PA/MUCK MINER's note and plan of care. I was available for consultation as needed during the patient's visit in the emergency department. I agree with the clinical impression, plan, and disposition. (ROSALIE LAMB DO) Problem Qualifiers Additional Impression: Asthma exacerbation Asthma severity: mild Asthma persistence: intermittent Qualified Codes: J45.21 - Mild intermittent asthma with (acute) exacerbation ROSALIE FAJARDO APRN Dec 04, 2018 21:29 ROSALIE LAMB DO Dec 05, 2018 05:57
[2018-12-04] MEDS ORDERED: DEXAMETHASONE SOD PHOS 4 MG/ML VIAL PO ONE (22:00)
[2018-12-04] MEDS ORDERED: FAMOTIDINE 20 MG TABLET. PO ONE (22:00)
[2018-12-04] MEDS ORDERED: IPRATRPIUM/ALBUTEROL 0.5/2.5MG 3 ML NEBU. NEB ONE (22:00)
== END 2018-12-04 22:07 | disposition home or self-care (01) ==
LOC: MERGE 19:22 → ER 19:22
DX: B86 Scabies (principal); J45.21 Mild intermittent asthma with (acute) exacerbation; E10.9 Type 1 diabetes mellitus without complications; I10 Essential (primary) hypertension; Z88.2 Allergy status to sulfonamides; Z88.1 Allergy status to other antibiotic agents
CPT/HCPCS: 94640; 99283; J1100; J7620

== ENCOUNTER → 2019-01-16 | Outpatient (CLI) | payer OTHER ==
[~2019-01-16] MED LIST changes: +PERM60CR12 TP
--- NOTE | 2019-01-16 17:49 | KCIC ---
BILATERAL SCREENING MAMMOGRAM History: Routine screening. Comparison: None. This is a baseline examination. Technique: Routine bilateral digital mammogram views were obtained. Findings: Breast Tissue Density A : The breasts are almost entirely fatty. A few benign-appearing calcifications are noted bilaterally. There are no dominant masses, suspicious microcalcifications, or architectural distortion. IMPRESSION: No mammographic evidence of malignancy. Recommend routine screening. BI-RADS category 2: Benign findings. The images were reviewed with computer aided detection. Patient information is entered into the reminder system with a target due date for the next screening mammogram. Mammography is the most sensitive method for finding small breast cancers, but it does not detect them all and is not a substitute for careful clinical examination. A negative mammogram does not negate a clinically suspicious finding and should not result in delay in biopsying a clinically suspicious abnormality. "Our facility is accredited by the [employer] Mammography Program." Electronically signed by: Jered Ruelas MD (01/16/2019 5:46 PM) [id number]
== END | disposition home or self-care (01) ==
LOC: KCIC MAMMO 15:18
PROVIDERS: ATTEND Registered Nurse
DX: Z12.31 Encounter for screening mammogram for malignant neoplasm of breast (principal); N64.89 Other specified disorders of breast
CPT/HCPCS: 77067

== ENCOUNTER 2019-06-22 11:42 | Emergency (ER) | payer OTHER ==
[~2019-06-22] VITALS: Ht 167.6 cm; Wt 128.4 kg
[~2019-06-22 11:42] MED LIST changes: +MONT10TA49 PO; -MONT10TA9 PO; +SIMV10TA15 PO; -SIMV10TA3 PO
[2019-06-22 11:48] VITALS: BP 163/86
[2019-06-22] MEDS ORDERED: ALBUTEROL SULFATE 2.5 MG/3 ML NEBU. NEB ONE (12:30)
[2019-06-22] MEDS ORDERED: DEXAMETHASONE SOD PHOS 20 MG/5 ML VIAL. PO ONE (12:30)
--- NOTE | 2019-06-22 12:41 | RAD ---
PA and lateral chest. HISTORY: Cough PA and lateral views were taken of the chest. Heart is upper normal in size without change from an old study. There is no effusion. There are hazy bilateral hilar infiltrates with peribronchial thickening. There is been worsening compared to an old study from April 28. Possible considerations would include an pneumonia or bronchitis or viral or atypical pneumonia or developing interstitial lung disease. IMPRESSION: 1. Peribronchial thickening and bilateral perihilar infiltrates. Electronically signed by: Chace Bosch MD (06/22/2019 12:38 PM) [id number]
[2019-06-22] MEDS ORDERED: IPRATRPIUM/ALBUTEROL 0.5/2.5MG 3 ML NEBU. NEB ONE (12:45)
[2019-06-22] MEDS ORDERED: PRED50TA PO (13:13)
[2019-06-22] MEDS ORDERED: LEVO750T31 PO (13:13)
[2019-06-22] MEDS ORDERED: BENZ100C PO (13:13)
--- NOTE | 2019-06-22 13:14 | PHYS DOC ---
Past Medical History Past Medical History: Asthma, Diabetes-Type I, Hypertension Past Surgical History: No Surgical History Alcohol Use: None Drug Use: None Adult General Chief Complaint Chief Complaint: COUGH HPI HPI Patient is a 43 year old AA female who presents to the emergency department complaints of a productive cough with green sputum for the last week, shortness breath, wheezing, sore throat, and fatigue. Patient states she has a history of asthma and she is a current smoker. She denies any fever ear pain, nausea, vomiting, diarrhea, abdominal pain, headache, or body aches. She reports taking robitussin and mucinex, and has been using her inhalers as prescribed at home with no relief of her symptoms. She denies any pain. All other ROS is neg unless otherwise noted in HPI. Review of Systems Review of Systems See Above Current Medications Current Medications Current Medications Medications (Trade) Dose Ordered Sig/Rock Start Time Stop Time Status Last Admin Dose Admin Albuterol Sulfate (Ventolin Neb Soln) 2.5 mg 1X ONCE 06/22/19 12:30 06/22/19 12:31 DC 06/22/19 12:13 2.5 MG Albuterol/ Ipratropium (Duoneb) 3 ml 1X ONCE 06/22/19 12:45 06/22/19 12:46 DC 06/22/19 13:16 3 ML Dexamethasone Sodium Phosphate (Decadron) 10 mg 1X ONCE 06/22/19 12:30 06/22/19 12:33 DC 06/22/19 12:40 10 MG Allergies Allergies Allergies Coded Allergies Type Severity Reaction Last Updated Verified sulfamethoxazole Allergy Intermediate 10/07/17 Yes trimethoprim Allergy Intermediate 10/07/17 Yes Physical Exam Physical Exam See Above Constitutional: Well developed, well nourished, no acute distress, ill appearan ce. [] HENT: Normocephalic, atraumatic, bilateral external ears normal, posterior pharynx normal, oropharynx moist, no oral exudates, nose normal. [] Eyes: PERRLA, EOMI, conjunctiva normal, no discharge. [] Neck: Normal range of motion, no tenderness, supple, no stridor. [] Cardiovascular:Heart rate regular rhythm, no murmur [] Lungs & Thorax: Bilateral lung sounds coarse throughout all nur with exp iratory wheezes, regular rate, no retractions Skin: Warm, dry, no erythema, no rash. [] Back: No tenderness Extremities: No cyanosis, no clubbing, ROM intact, no edema. [] Neurologic: Alert and oriented X 3, no focal deficits noted. [] Psychologic: Affect normal, judgement normal, mood normal. [] Current Patient Data Vital Signs Vital Signs Date Time Temp Pulse Resp B/P (MAP) Pulse Ox O2 Delivery O2 Flow Rate FiO2 06/22/19 13:17 Room Air 06/22/19 11:48 98.7 103 18 163/86 (111) 94 98.7 EKG EKG [] Radiology/Procedures Radiology/Procedures PROCEDURE: CHEST PA & LATERAL PA and lateral chest. HISTORY: Cough PA and lateral views were taken of the chest. Heart is upper normal in size without change from an old study. There is no effusion. There are hazy bilateral hilar infiltrates with peribronchial thickening. There is been worsening compared to an old study from April 28. Possible considerations would include an pneumonia or bronchitis or viral or atypical pneumonia or developing interstitial lung disease. IMPRESSION: 1. Peribronchial thickening and bilateral perihilar infiltrates.[] Course & Med Decision Making Course & Med Decision Making Pertinent Labs and Imaging studies reviewed. (See chart for details) dx: CAP, acute bronchitis, asthma exacerbation She was given 10 mg of Decadron by mouth, and 2 breathing treatments in the emergency department, she reported feeling better after these interventions. Her O2 sat was 98% on room air upon discharge and her respirations were regular wi th a rate of 18-20. Prescriptions were written for prednisone to start taking tomorrow, Levaquin, Tessalon Perles, and sulconazole when necessary a yeast infection. Patient was instructed to follow-up with her primary care doctor in the next 1-2 days for reevaluation and to return to the ER if her symptoms worsen. Pt verbalized an understanding of home care, medications, follow-up, and return to ED instructions and was in agreement with the plan of care. [] Dragon Disclaimer Dragon Disclaimer This electronic medical record was generated, in whole or in part, using a voice recognition dictation system. Departure Departure Impression: Primary Impression: Asthma exacerbation Additional Impressions: Acute bronchitis Pneumonia Disposition: 01 HOME, SELF-CARE Condition: STABLE Referrals: PANCHO VAZQUEZ APRN (PCP) Patient Instructions: Pneumonia, Adult Additional Instructions: Fill prescription(s) and use as directed. Recommend use of a Cool mist humidifier in room at bedtime. Alternate Tylenol or ibuprofen as needed for pain/fever. Increase clear fluids. Avoid airway triggers such as smoke, fragrance, dust, and pollen. Follow-up with your primary care doctor in 1-2 days, return to the ER if symptoms worsen. Scripts Fluconazole (DIFLUCAN) 150 Mg Tablet 1 TAB PO ONCE, #1 TAB 1 Refill may repeat in 72 hours if symptoms persist Prov: YANNA AUGUSTINE APRN 06/22/19 Prednisone (PREDNISONE) 50 Mg Tablet 1 TAB PO DAILY for 5 Days, #5 TAB 0 Refills Prov: YANNA AUGUSTINE APRN 06/22/19 Benzonatate (TESSALON PERLE) 100 Mg Capsule 1 CAP PO TID PRN for COUGH for 7 Days, #21 CAP 0 Refills Prov: YANNA AUGUSTINE APRN 06/22/19 Levofloxacin (LEVAQUIN) 750 Mg Tablet 1 TAB PO DAILY for 5 Days, #5 TAB 0 Refills Prov: YANNA AUGUSTINE APRN 06/22/19 Problem Qualifiers Primary Impression: Asthma exacerbation Asthma severity: mild Asthma persistence: unspecified Qualified Codes: J45.901 - Unspecified asthma with (acute) exacerbation Additional Impressions: Acute bronchitis Bronchitis organism: unspecified organism Qualified Codes: J20.9 - Acute bronchitis, unspecified Pneumonia Pneumonia type: due to unspecified organism Laterality: bilateral Lung location: unspecified part of lung Qualified Codes: J18.9 - Pneumonia, unspecified organism YANNA AUGUSTINE [employer] PRO[employer] MA[employer]GER Jun 22, 2019 13:14
[2019-06-22] MEDS ORDERED: FLUC150T PO (13:27)
== END 2019-06-22 13:25 | disposition home or self-care (01) ==
LOC: ER 11:42
DX: J20.9 Acute bronchitis, unspecified (principal); J45.901 Unspecified asthma with (acute) exacerbation; J18.9 Pneumonia, unspecified organism; I10 Essential (primary) hypertension; E10.8 Type 1 diabetes mellitus with unspecified complications; Z88.1 Allergy status to other antibiotic agents; Z88.2 Allergy status to sulfonamides
CPT/HCPCS: 71046; 94640; 99284; J1100; J7613; J7620

== ENCOUNTER 2020-01-22 20:04 | Emergency (ER) | payer OTHER ==
[~2020-01-22] VITALS: Ht 170.2 cm; Wt 150.0 kg
[~2020-01-22 20:04] MED LIST changes: -OMEP20CA10 PO; +OMEP20CA16 PO; -POTA10TA12 PO; +POTASSIUM CHLO10 ME1 PO
[2020-01-22 20:39] VITALS: BP 145/86
[2020-01-22] MEDS ORDERED: IPRATRPIUM/ALBUTEROL 0.5/2.5MG 3 ML NEBU. NEB ONE (21:15)
--- NOTE | 2020-01-22 21:46 | RAD ---
KNEE LEFT 3V History: Reason: left knee pain x3 weeks. hx of arthritis / Spl. Instructions: / History: Technique: 3 views left knee. Comparison: None. Findings: Normal limit. No fracture. No significant knee joint effusion. Patellar enthesopathic changes. Mild patellar spurring. Impression: 1. No acute osseous abnormality. Electronically signed by: Bruce Gutierrez DO (01/22/2020 9:44 PM) [facility]
--- NOTE | 2020-01-22 21:57 | PHYS DOC ---
Past Medical History Past Medical History: Arthritis, Asthma, Diabetes-Type I, Hypertension Past Surgical History: No Surgical History Smoking Status: Current Every Day Smoker Alcohol Use: None Drug Use: None General Adult EDM: Chief Complaint: KNEE INJURY HPI: HPI: Patient is a 44 year old female who presents with complaint of left knee pain is been going on for the last few weeks. Patient denies any injuries. She also indicates that she has some shortness of breath and wheezing stating that she has a history of asthma. She indicates that she does not have an inhaler. Patient is requesting a breathing treatment at this time as well. [] Review of Systems: Review of Systems: Constitutional: Denies fever or chills. [] Respiratory: Complains of cough and wheezing. [] Cardiovascular: Denies chest pain or edema. [] Musculoskeletal: Complains of left knee pain. [] Integument: Denies rash. [] Neurologic: Denies headache, focal weakness or sensory changes. [] Heart Score: Risk Factors: Risk Factors: DM, Current or recent (<one month) smoker, HTN, HLP, family history of CAD, obesity. Risk Scores: Score 0 - 3: 2.5% MACE over next 6 weeks - Discharge Home Score 4 - 6: 20.3% MACE over next 6 weeks - Admit for Clinical Observation Score 7 - 10: 72.7% MACE over next 6 weeks - Early Invasive Strategies Current Medications: Current Medications Medications (Trade) Dose Ordered Sig/Rock Start Time Stop Time Status Last Admin Dose Admin Albuterol/ Ipratropium (Duoneb) 3 ml 1X ONCE 01/22/20 21:15 01/22/20 21:16 DC 01/22/20 21:15 3 ML Allergies: Allergies: Allergies Coded Allergies Type Severity Reaction Last Updated Verified sulfamethoxazole Allergy Intermediate 10/07/17 Yes trimethoprim Allergy Intermediate 10/07/17 Yes Physical Exam: PE: Constitutional: Well developed, well nourished, no acute distress, non-toxic appearance. [] Cardiovascular:Heart rate regular rhythm, no murmur [] Lungs & Thorax: There is bilateral inspiratory and expiratory wheezes to auscultation [] Extremities: Left knee demonstrates tenderness to palpation diffusely with no signs of soft tissue swelling, effusion or other abnormalities. [] Neurologic: Alert and oriented X 3, normal motor function, normal sensory function, no focal deficits noted. [] Current Patient Data: Vital Signs: Vital Signs Date Time Temp Pulse Resp B/P (MAP) Pulse Ox O2 Delivery O2 Flow Rate FiO2 01/22/20 21:39 95 Room Air 01/22/20 20:39 22 145/86 (105) EKG: EKG: [] Radiology/Procedures: Radiology/Procedures: [] Impression: PROCEDURE: KNEE LEFT 3V KNEE LEFT 3V History: Reason: left knee pain x3 weeks. hx of arthritis / Spl. Instructions: / History: Technique: 3 views left knee. Comparison: None. Findings: Normal limit. No fracture. No significant knee joint effusion. Patellar enthesopathic changes. Mild patellar spurring. Impression: 1. No acute osseous abnormality. Electronically signed by: Bruce Gutierrez DO (01/22/2020 9:44 PM) [facility] Course & Med Decision Making: Course & Med Decision Making Pertinent Labs and Imaging studies reviewed. (See chart for details) [] Dragon Disclaimer: Dragon Disclaimer: This electronic medical record was generated, in whole or in part, using a voice recognition dictation system. Departure Departure Impression: Primary Impression: Knee pain, left Qualified Codes: M25.562 - Pain in left knee Additional Impression: Asthma Qualified Codes: J45.909 - Unspecified asthma, uncomplicated Disposition: 01 HOME, SELF-CARE Condition: STABLE Referrals: PANCHO VAZQUEZ APRN (PCP) Patient Instructions: Asthma, Adult, Knee - Patella Problems, Knee Pain Scripts Albuterol Sulfate (PROAIR HFA INHALER) 8.5 Gm Hfa.aer.ad 2 PUFF IH PRN Q4-6HRS PRN for wheezing, #1 INHALER 0 Refills Prov: TIMO STRONG Jr., DO 01/22/20 Indomethacin (INDOMETHACIN) 50 Mg Capsule 1 CAP PO TID PRN for PAIN for 10 Days, #30 CAP 0 Refills with food Prov: TIMO STRONG Jr., DO 01/22/20 Justicifation of Admission Dx: Justifications for Admission: Justification of Admission Dx: Comment: (Not applicable) TIMO STRONG Jr., DO Jan 22, 2020 21:57
[2020-01-22] MEDS ORDERED: ALBU2.5V8 IH (22:16)
[2020-01-22] MEDS ORDERED: INDO50CA15 PO (22:16)
== END 2020-01-22 22:25 | disposition home or self-care (01) ==
LOC: ER 20:04
DX: M25.562 Pain in left knee (principal); J45.909 Unspecified asthma, uncomplicated; M19.90 Unspecified osteoarthritis, unspecified site; E10.9 Type 1 diabetes mellitus without complications; I10 Essential (primary) hypertension; F17.200 Nicotine dependence, unspecified, uncomplicated; Z88.2 Allergy status to sulfonamides; Z88.6 Allergy status to analgesic agent
CPT/HCPCS: 73562; 94640; 99283

== ENCOUNTER 2020-06-18 19:18 | Emergency (ER) | payer OTHER ==
[~2020-06-18] VITALS: Ht 167.6 cm; Wt 134.5 kg
[~2020-06-18 19:18] MED LIST changes: +ALBU2.5V8 IH; +AMLO-187 PO; -AMLO10TA8 PO; +INDO50CA15 PO
[2020-06-18] MEDS ORDERED: IPRATRPIUM/ALBUTEROL 0.5/2.5MG 3 ML NEBU. NEB ONE (20:15)
[2020-06-18] MEDS ORDERED: ALBUTEROL SULFATE 2.5 MG/3 ML NEBU. NEB ONE (20:15)
[2020-06-18 21:24] VITALS: BP 145/67
[2020-06-18] MEDS ORDERED: PRED50TA PO (21:52)
--- NOTE | 2020-06-18 21:52 | ED.ADGEN ---
Past Medical History Past Medical History: Arthritis, Asthma, Diabetes-Type I, Hypertension Past Surgical History: No Surgical History Smoking Status: Current Every Day Smoker Alcohol Use: None Drug Use: None General Adult EDM: Chief Complaint: ASTHMA HPI: HPI: Patient is a 44 year old AA female who presents emergency department with complaints of an asthma exacerbation that began yesterday. Patient reports a history of asthma. She denies any known exposure to anyone with COVID-19. She denies any recent cough, body aches, rash, fatigue, sore throat, fever, abdominal pain, nausea, vomiting, diarrhea, or ear pain. The patient denies any chest pain, palpitations, or edema. She reports that she has been taking her inhalers as prescribed but they are not helping today. She currently complains of her chest feeling tight. She denies any pain. Review of Systems: Review of Systems: Complete ROS is negative unless otherwise noted in HPI. Current Medications: Current Medications Medications (Trade) Dose Ordered Sig/Rock Start Time Stop Time Status Last Admin Dose Admin Albuterol Sulfate (Ventolin Neb Soln) 2.5 mg 1X ONCE 06/18/20 20:15 06/18/20 20:16 DC 06/18/20 20:19 2.5 MG Albuterol/ Ipratropium (Duoneb) 3 ml 1X ONCE 06/18/20 20:15 06/18/20 20:16 DC 06/18/20 20:19 3 ML Prednisone (Prednisone) 50 mg 1X ONCE 06/18/20 22:00 06/18/20 22:01 DC 06/18/20 22:07 50 MG Allergies: Allergies: Allergies Coded Allergies Type Severity Reaction Last Updated Verified sulfamethoxazole Allergy Intermediate 10/07/17 Yes trimethoprim Allergy Intermediate 10/07/17 Yes Physical Exam: PE: See Above Constitutional: Well developed, well nourished, no acute distress, non-toxic appearance, obese. [] HENT: Normocephalic, atraumatic, bilateral external ears normal, nose normal. [] Eyes: PERRLA, EOMI, conjunctiva normal, no discharge. [] Neck: Normal range of motion, no stridor. [] Cardiovascular:Heart rate regular rhythm Lungs & Thorax: Inspiratory and expiratory wheezes present throughout all nur, diminished in the bases bilaterally, , no retractions, no respiratory distress Abdomen: soft, no tenderness Skin: Warm, dry, no erythema, no rash. [] Extremities: No cyanosis, ROM intact, no edema. [] Neurologic: Alert and oriented X 3, no focal deficits noted. [] Psychologic: Affect normal, judgement normal, mood normal. [] Current Patient Data: Vital Signs: Vital Signs Date Time Temp Pulse Resp B/P (MAP) Pulse Ox O2 Delivery O2 Flow Rate FiO2 06/18/20 21:24 94 21 145/67 (93) 92 Room Air 06/18/20 19:50 97.9 2.0 97.9 EKG: EKG: [] Heart Score: Risk Factors: Risk Factors: DM, Current or recent (<one month) smoker, HTN, HLP, family history of CAD, obesity. Risk Scores: Score 0 - 3: 2.5% MACE over next 6 weeks - Discharge Home Score 4 - 6: 20.3% MACE over next 6 weeks - Admit for Clinical Observation Score 7 - 10: 72.7% MACE over next 6 weeks - Early Invasive Strategies Radiology/Procedures: Radiology/Procedures: [] Course & Med Decision Making: Course & Med Decision Making Pertinent Labs and Imaging studies reviewed. (See chart for details) 44-year-old female presents emergency room with complaints of an asthma exacerbation, she denied any known Covid exposure. She was given a DuoNeb and albuterol breathing treatment. Patient reported feeling better after these treatments, her breathing was not labored and oxygen saturation was 94 to 96% on room air. The patient reported feeling better. Patient was also given 50 mg of prednisone while in the emergency department. Prescription was written for 4 more doses of 50 mg of prednisone. I encouraged the patient to continue taking her asthma medications as prescribed, follow-up with her primary care doctor in 1 to 2 days, return to the ER symptoms worsen. Patient verbalized an understanding of home care, medications, follow-up, and return to ED instructions and was in agreement with the plan of care. [] Dragon Disclaimer: Dragon Disclaimer: This electronic medical record was generated, in whole or in part, using a voice recognition dictation system. Departure Departure Impression: Primary Impression: Asthma exacerbation Disposition: 01 DC HOME SELF CARE/HOMELESS Condition: STABLE Referrals: PANCHO VAZQUEZ APRN (PCP) Patient Instructions: Asthma Attacks, Prevention, Asthma, Adult, [id number] Additional Instructions: Fill prescription(s) and use as directed. Alternate Tylenol or ibuprofen as needed for pain/fever. Increase clear fluids. Avoid airway triggers such as smoke, fragrance, dust, and pollen. May take [id number] cough suppressants as needed. Follow-up with your primary care doctor in 1 to 2 days, return to the ER if symptoms worsen. Scripts Prednisone (PREDNISONE) 50 Mg Tablet 1 TAB PO DAILY for 4 Days, #4 TAB 0 Refills first dose given in ER start on 06/19/20 Prov: YANNA AUGUSTINE APRN 06/18/20 Problem Qualifiers Primary Impression: Asthma exacerbation Asthma severity: unspecified severity Asthma persistence: unspecified Qualified Codes: J45.901 - Unspecified asthma with (acute) exacerbation YANNA AUGUSTINE APRN Jun 18, 2020 21:52
[2020-06-18] MEDS ORDERED: predniSONE 10 MG TABLET PO ONE (22:00)
== END 2020-06-18 22:03 | disposition home or self-care (01) ==
LOC: ER 19:18
DX: J45.901 Unspecified asthma with (acute) exacerbation (principal); E10.9 Type 1 diabetes mellitus without complications; I10 Essential (primary) hypertension; F17.200 Nicotine dependence, unspecified, uncomplicated; Z88.1 Allergy status to other antibiotic agents; Z88.2 Allergy status to sulfonamides; E66.9 Obesity, unspecified; Z68.42 Body mass index [BMI] 45.0-49.9, adult
CPT/HCPCS: 94640; 99284; J7512; J7613; 99285

== ENCOUNTER 2021-05-12 09:12 | Emergency (ER) | payer OTHER ==
[~2021-05-12] VITALS: Ht 167.6 cm; Wt 129.5 kg
[~2021-05-12 09:12] MED LIST changes: +DOXY-181 PO; -DOXY100C14 PO; -DOXY100C2 PO; +DOXY100C3 PO; -LISI-338 PO; +LISI-517 PO
[2021-05-12] MEDS ORDERED: ALBUTEROL SULFATE 2.5 MG/3 ML NEBU. CONT NEB ONE (09:45)
[2021-05-12] MEDS ORDERED: predniSONE 10 MG TABLET PO ONE (09:45)
--- NOTE | 2021-05-12 10:14 | PHYS DOC ---
Past Medical History Past Medical History: Arthritis, Asthma, Diabetes-Type I, Hypertension Past Surgical History: No Surgical History Smoking Status: Current Every Day Smoker Alcohol Use: None Drug Use: None General Adult EDM: Chief Complaint: ASTHMA HPI: HPI: Patient is a 45 year old female who presents with 3 days of shortness of air and cough. She states she has inhalers at home and is been using them more frequently but not helping much. Patient is a smoker and she does have allergies, history of asthma, diabetes, arthritis and hypertension. She does not have a nebulizer at home. She has not had her Covid vaccines. She denies fever, chest pain, dizziness, syncope, headache, abdominal pain, nausea, vomiting, diarrhea, focal weakness, numbness or tingling, vision change. Denies any pain. She is not on any kind of steroid. She does take Zyrtec daily. Review of Systems: Review of Systems: Constitutional: Denies fever or chills. [] Eyes: Denies change in visual acuity. [] HENT: Denies nasal congestion or sore throat. [] Respiratory: + cough or +shortness of breath. [] Cardiovascular: Denies chest pain or edema. + Chest tightness [] GI: Denies abdominal pain, nausea, vomiting, bloody stools or diarrhea. [] : Denies dysuria. [] Musculoskeletal: Denies back pain or joint pain. [] Integument: Denies rash. [] Neurologic: Denies headache, focal weakness or sensory changes. [] Endocrine: Denies polyuria or polydipsia. [] Lymphatic: Denies swollen glands. [] Psychiatric: Denies depression or anxiety. [] Heart Score: C/O Chest Pain: No Current Medications: Current Medications Medications (Trade) Dose Ordered Sig/Rock Start Time Stop Time Status Last Admin Dose Admin Albuterol Sulfate (Ventolin Neb Soln) 10 mg 1X ONCE 05/12/21 09:45 05/12/21 09:47 DC 05/12/21 10:00 10 MG Prednisone (Prednisone) 50 mg 1X ONCE 05/12/21 09:45 05/12/21 09:47 DC 05/12/21 10:03 50 MG Allergies: Allergies: Allergies Coded Allergies Type Severity Reaction Last Updated Verified sulfamethoxazole Allergy Intermediate 10/07/17 Yes trimethoprim Allergy Intermediate 10/07/17 Yes Physical Exam: PE: Constitutional: Well developed, well nourished, no acute distress, non-toxic appearance. [] HENT: Normocephalic, atraumatic, bilateral external ears normal, oropharynx moist, no oral exudates, nose normal. [] Eyes: PERRLA, EOMI, conjunctiva normal, no discharge. [] Neck: Normal range of motion, no tenderness, supple, no stridor. [] Cardiovascular:Heart rate regular rhythm, no murmur [] Lungs & Thorax: Bilateral upper breath sounds inspiratory and expiratory wheezing and lower diminished to auscultation [] Abdomen: Bowel sounds normal, soft, no tenderness, no masses, no pulsatile masses. [] Skin: Warm, dry, no erythema, no rash. [] Back: No tenderness, no CVA tenderness. [] Extremities: No tenderness, no cyanosis, no clubbing, ROM intact, no edema. [] Neurologic: Alert and oriented X 3, normal motor function, normal sensory function, no focal deficits noted. [] Psychologic: Affect normal, judgement normal, mood normal. [] Current Patient Data: Vital Signs: Vital Signs Date Time Temp Pulse Resp B/P (MAP) Pulse Ox O2 Delivery O2 Flow Rate FiO2 05/12/21 10:01 93 Room Air 05/12/21 09:46 98.7 98 22 144/84 (104) 98.7 EKG: EKG: [] Radiology/Procedures: Radiology/Procedures: [] Impression: [facility] [address] [place] [address] IMAGING REPORT Signed PATIENT: CYNDI LAM ACCOUNT: [id number] : 1975 LOCATION: ER AGE: 45 SEX: F EXAM STATUS: REG ER ORD. PHYSICIAN: JOSE GTZ APRN REASON: COUGH, SOA. PROCEDURE: PORTABLE CHEST 1V XR CHEST 1V INDICATION: COUGH, SOA. COMPARISON STUDY: Radiograph 06/22/2019. CT 11/29/2016. FINDINGS: Lungs: Normal lung volume. No pulmonary mass or consolidation. The tracheobronchial tree and hilar structures are normal. Pleura: No pleural effusion or pneumothorax. Heart and Mediastinum: Cardiomegaly. The great vessels of the thorax are normal. IMPRESSION: No consolidation. Electronically signed by: Sim Sierra MD (05/12/2021 10:21 AM) [id number] DICTATED and SIGNED BY: SIM SIERRA MD DATE: 05/12/21 [id number] Course & Med Decision Making: Course & Med Decision Making Signs remainPertinent Labs and Imaging studies reviewed. (See chart for details) See HPI. Alert and oriented x4. Ambulatory steady gait. Speaks in full clear sentences. Skin pink warm and dry. Bilateral upper lobe lungs have inspiratory expiratory wheezing and lower lungs are diminished. No respiratory distress. She is able to walk back to the ED room without distress. Cap refill less than 2 seconds. Patient is given an hour-long albuterol treatment and prednisone. After hour-long breathing treatment patient states she is feeling better. Stable. Patient is moving air or easily. She is still wheezing slightly. Nayla ent is offered another breathing treatment but she states she is ready to go. No respiratory distress. She is amatory with a steady gait. No accessory muscle use. She is sent home with a prescription for a another albuterol inhaler and Medrol Dosepak. [] Dragon Disclaimer: DragFood Runner Disclaimer: This electronic medical record was generated, in whole or in part, using a voice recognition dictation system. Departure Departure Impression: Primary Impression: Asthma exacerbation Qualified Codes: J45.21 - Mild intermittent asthma with (acute) exacerbation Disposition: HOME / SELF CARE / HOMELESS Condition: STABLE Referrals: PANCHO VAZQUEZ APRN (PCP) Patient Instructions: Asthma, Adult Additional Instructions: Follow-up with your primary care provider soon as possible. Continue using your inhaler. I would look into getting a nebulizer. Continue taking your allergy medications and all your other scheduled medications. Take the steroid with food and as prescribed. If your symptoms worsen come back to the ED. Scripts Albuterol Sulfate (PROAIR HFA INHALER) 8.5 Gm Hfa.aer.ad 1 PUFF INH PRN Q4HRS PRN for SHORTNESS OF BREATH, #1 EACH 0 Refills Prov: JOSE GTZ APRN 05/12/21 Methylprednisolone (MEDROL) 4 Mg Tab.ds.pk 1 PKG PO UD, #1 PKG Prov: JOSE GTZ APRN 05/12/21 JOSE GTZ APRN May 12, 2021 10:14
--- NOTE | 2021-05-12 10:24 | RAD ---
XR CHEST 1V INDICATION: COUGH, SOA. COMPARISON STUDY: Radiograph 06/22/2019. CT 11/29/2016. FINDINGS: Lungs: Normal lung volume. No pulmonary mass or consolidation. The tracheobronchial tree and hilar st ructures are normal. Pleura: No pleural effusion or pneumothorax. Heart and Mediastinum: Cardiomegaly. The great vessels of the thorax are normal. IMPRESSION: No consolidation. Electronically signed by: Jose Sierra MD (05/12/2021 10:21 AM) [id number]
[2021-05-12 10:42] VITALS: BP 146/66
[2021-05-12] MEDS ORDERED: METH4TAB2 PO (11:15)
[2021-05-12] MEDS ORDERED: ALBU2.5V8 INH (11:15)
== END 2021-05-12 11:30 | disposition home or self-care (01) ==
LOC: ER 09:12
DX: J45.21 Mild intermittent asthma with (acute) exacerbation (principal); E10.9 Type 1 diabetes mellitus without complications; I10 Essential (primary) hypertension; F17.200 Nicotine dependence, unspecified, uncomplicated; Z88.1 Allergy status to other antibiotic agents; Z88.2 Allergy status to sulfonamides
CPT/HCPCS: 71045; 94644; 99285; J7512; J7613; 94640

== ENCOUNTER 2021-06-16 10:42 | Observation (INO) | payer OTHER ==
[~2021-06-16] VITALS: Ht 167.6 cm; Wt 125.2 kg
[~2021-06-16 10:42] MED LIST changes: -LISI-517 PO; +LISI5TAB15 PO
[2021-06-16] MEDS ORDERED: IPRATRPIUM/ALBUTEROL 0.5/2.5MG 3 ML NEBU. NEB ONE (11:15)
[2021-06-16] MEDS ORDERED: DEXAMETHASONE SOD PHOS 20 MG/5 ML VIAL. IV ONE (11:15)
--- NOTE | 2021-06-16 11:29 | RAD ---
Single view of the chest. 06/16/2021 11:16 AM Indication: Reason: Shortness of breath Comparison: Chest radiograph May 12, 2021 Findings: There is diffuse interstitial attending, mildly more prominent on comparison study. Differe ntial considerations include mild edema versus an atypical or viral infectious process. The heart is mildly enlarged. No pneumothorax or definitive effusion is seen. No acute osseous changes are identif ied. IMPRESSION: 1.Continued diffuse interstitial thickening, mildly more prominent than on comparison study, possibly representing edema versus an atypical or viral infectious process. 2. Mild cardiomegaly Electronically signed by: Satinder Garcia MD (06/16/2021 11:26 AM) [id number]
[2021-06-16 11:47] LABS: BASO % 1 % (0-3); EOS # 0.1 x10^3/uL (0.0-0.7); EOS % 1 % (0-3); HEMATOCRIT 39.1 % (36.0-47.0); LYMPH # 2.2 x10^3/uL (1.0-4.8); LYMPH % 29 % (24-48); MEAN CORPUSCULAR HEMOGLOBIN 30 pg (25-35); MEAN CORPUSCULAR HGB CONC 33 g/dL (31-37); MEAN CORPUSCULAR VOLUME 90 fL (79-100); MONO # 0.4 x10^3/uL (0.0-1.1); MONO % 6 % (0-9); NEUT # 4.8 x10^3/uL (1.8-7.7); NEUT % 64 % (31-73); PLATELET COUNT 291 x10^3/uL (140-400); RED BLOOD COUNT 4.32 x10^6/uL (3.50-5.40); RED CELL DISTRIBUTION WIDTH 15.3 % (11.5-14.5); WHITE BLOOD COUNT 7.5 x10^3/uL (4.0-11.0)
[2021-06-16 11:56] LABS: CALCIUM 8.9 mg/dL (8.5-10.1); GFR 71.9; POTASSIUM 3.7 mmol/L (3.5-5.1)
[2021-06-16 11:57] LABS: PREG TEST PT QUAL NEGATIVE (NEG)
[2021-06-16 12:02] LABS: ALBUMIN 2.9 g/dL (3.4-5.0); ALBUMIN/GLOBULIN RATIO 0.8 (1.0-1.7); TOTAL BILIRUBIN 0.4 mg/dL (0.2-1.0); TOTAL PROTEIN 6.7 g/dL (6.4-8.2)
[2021-06-16 12:04] LABS: INFLUENZA A PATIENT NEGATIVE (NEGATIVE); INFLUENZA B PATIENT NEGATIVE (NEGATIVE)
--- NOTE | 2021-06-16 15:16 | EKG ---
[facility] [address] [place] [address] Test Date: 2021-06-16 Test Time: 11:05:01 Pat Name: CYNDI LAM Department: Room: Gender: F [employer]: : 1975 Requested By: CYNTHIA REYNOLDS Order Number: [id number] Reading MD: Gregg Delacruz MD Measurements Intervals [place] Rate: 102 P: 61 MA: 138 QRS: -27 QRSD: 94 T: 34 QT: 356 QTc: 468 Interpretive Statements SINUS TACHYCARDIA Electronically Signed On 06-17-2021 9:42:21 IC DESIGN ENGINEER by Gregg Delacruz MD
--- NOTE | 2021-06-16 17:31 | PHYS DOC ---
Past Medical History Past Medical History: Arthritis, Asthma, Diabetes-Type I, Hypertension Past Surgical History: Other Additional Past Surgical Histo: kidney stone removal Smoking Status: Current Every Day Smoker Alcohol Use: None Drug Use: None General Adult EDM: Chief Complaint: SHORTNESS OF BREATH HPI: HPI: 45-year-old female past medical history of asthma, hypertension, diabetes and arthritis, presents to the ED with complaints of worsening shortness of breath over the past week. Patient refuses Covid vaccine but has had her influenza vaccine. Review of Systems: Review of Systems: Constitutional: Denies fever or chills. [] Eyes: Denies change in visual acuity. [] HENT: Denies nasal congestion or sore throat. [] Respiratory: Denies cough or hemoptysis Cardiovascular: Denies chest pain or edema. [] GI: Denies abdominal pain, nausea, vomiting, bloody stools or diarrhea. [] : Denies dysuria or vaginal bleeding Musculoskeletal: Denies back pain or joint pain. [] Integument: Denies rash or diaphoresis Neurologic: Denies headache, focal weakness or sensory changes. [] Endocrine: Denies polyuria or polydipsia. [] Lymphatic: Denies swollen glands. [] Psychiatric: Denies depression or anxiety. [] Heart Score: C/O Chest Pain: No Risk Factors: Risk Factors: DM, Current or recent (<one month) smoker, HTN, HLP, family history of CAD, obesity. Risk Scores: Score 0 - 3: 2.5% MACE over next 6 weeks - Discharge Home Score 4 - 6: 20.3% MACE over next 6 weeks - Admit for Clinical Observation Score 7 - 10: 72.7% MACE over next 6 weeks - Early Invasive Strategies Current Medications: Current Medications Medications (Trade) Dose Ordered Sig/Rock Start Time Stop Time Status Last Admin Dose Admin Albuterol/ Ipratropium (Duoneb) 9 ml 1X ONCE 06/16/21 11:15 06/16/21 11:16 DC 06/16/21 11:15 9 ML Dexamethasone Sodium Phosphate (Decadron) 10 mg 1X ONCE 06/16/21 11:15 06/16/21 11:16 DC 06/16/21 13:23 10 MG Allergies: Allergies: Allergies Coded Allergies Type Severity Reaction Last Updated Verified sulfamethoxazole Allergy Intermediate 10/07/17 Yes trimethoprim Allergy Intermediate 10/07/17 Yes Physical Exam: PE: Constitutional: Well developed, well nourished, no acute distress, non-toxic appearance. HENT: Normocephalic, atraumatic, Eyes: EOMI, conjunctiva normal, no discharge. Neck: Normal range of motion, supple, Cardiovascular: S1/2 present, regular rhythm Lungs & Thorax: Speaking in full sentences, bilateral equal chest rise, wheezing on exam, requires NC Abdomen: soft, no tenderness, Skin: Warm, dry, no erythema, no rash. [] Back: No tenderness, no CVA tenderness. [] Extremities: No tenderness, no cyanosis, no lower extremity edema Neurologic: Alert and oriented X 3, normal motor function, normal sensory function, no focal deficits noted. [] Psychologic: Affect normal, judgement normal, mood normal. [] Current Patient Data: Labs: Laboratory Tests Test 06/16/21 11:28 White Blood Count 7.5 x10^3/uL (4.0-11.0) Red Blood Count 4.32 x10^6/uL (3.50-5.40) Hemoglobin 13.0 g/dL (12.0-15.5) Hematocrit 39.1 % (36.0-47.0) Mean Corpuscular Volume 90 fL (79-100) Mean Corpuscular Hemoglobin 30 pg (25-35) Mean Corpuscular Hemoglobin Concent 33 g/dL (31-37) Red Cell Distribution Width 15.3 % (11.5-14.5) H Platelet Count 291 x10^3/uL (140-400) Neutrophils (%) (Auto) 64 % (31-73) Lymphocytes (%) (Auto) 29 % (24-48) Monocytes (%) (Auto) 6 % (0-9) Eosinophils (%) (Auto) 1 % (0-3) Basophils (%) (Auto) 1 % (0-3) Neutrophils # (Auto) 4.8 x10^3/uL (1.8-7.7) Lymphocytes # (Auto) 2.2 x10^3/uL (1.0-4.8) Monocytes # (Auto) 0.4 x10^3/uL (0.0-1.1) Eosinophils # (Auto) 0.1 x10^3/uL (0.0-0.7) Basophils # (Auto) 0.0 x10^3/uL (0.0-0.2) Sodium Level 137 mmol/L (136-145) Potassium Level 3.7 mmol/L (3.5-5.1) Chloride Level 101 mmol/L (98-107) Carbon Dioxide Level 32 mmol/L (21-32) Anion Gap 4 (6-14) L Blood Urea Nitrogen 7 mg/dL (7-20) Creatinine 1.0 mg/dL (0.6-1.0) Estimated GFR (Cockcroft-Gault) 71.9 BUN/Creatinine Ratio 7 (6-20) Glucose Level 262 mg/dL (70-99) H Calcium Level 8.9 mg/dL (8.5-10.1) Total Bilirubin 0.4 mg/dL (0.2-1.0) Aspartate Amino Transferase (AST) 13 U/L (15-37) L Alanine Aminotransferase (ALT) 23 U/L (14-59) Alkaline Phosphatase 109 U/L (46-116) Total Protein 6.7 g/dL (6.4-8.2) Albumin 2.9 g/dL (3.4-5.0) L Albumin/Globulin Ratio 0.8 (1.0-1.7) L Serum Test, Qualitative Negative (NEG) Influenza Type A Antigen Negative (NEGATIVE) Influenza Type B Antigen Negative (NEGATIVE) SARS-CoV-2 Antigen (Rapid) Negative (NEGATIVE) Laboratory Tests 06/16/21 11:28 Laboratory Tests 06/16/21 11:28 Vital Signs: Vital Signs Date Time Temp Pulse Resp B/P (MAP) Pulse Ox O2 Delivery O2 Flow Rate FiO2 06/16/21 11:54 Nasal Cannula 2.0 06/16/21 11:09 98.5 97 20 168/62 (97) 95 98.5 EKG: EKG: Sinus tachycardia 102 bpm, left axis deviation, QTC 468, no T wave inversion, no ST elevation or ST depression, Q-wave 1 and aVL, denies chest pain Radiology/Procedures: Radiology/Procedures: []IMAGING REPORT Signed PATIENT: CYNDI LAM ACCOUNT: [id number] : 1975 LOCATION: ER AGE: 45 SEX: F EXAM STATUS: PRE ER ORD. PHYSICIAN: CYNTHIA REYNOLDS DO REASON: soa PROCEDURE: PORTABLE CHEST 1V Single view of the chest. 06/16/2021 11:16 AM Indication: Reason: Shortness of breath Comparison: Chest radiograph May 12, 2021 Findings: There is diffuse interstitial attending, mildly more prominent on comparison study. Differential considerations include mild edema versus an atypical or viral infectious process. The heart is mildly enlarged. No pneumothorax or definitive effusion is seen. No acute osseous changes are identified. IMPRESSION: 1.Continued diffuse interstitial thickening, mildly more prominent than on comparison study, possibly representing edema versus an atypical or viral infectious process. 2. Mild cardiomegaly Electronically signed by: Satinder Echols MD (06/16/2021 11:26 AM) [id number] DICTATED and SIGNED BY: SATINDER ECHOLS MD DATE: 06/16/21 [id number] 0 Course & Med Decision Making: Course & Med Decision Making Pertinent Labs and Imaging studies reviewed. (See chart for details) COVID-19 CRITERIA: The patient was evaluated during the global COVID-19 pandemic, and that diagnosis was suspected/considered upon their initial presentation. Their evaluation, treatment and testing was consistent with current guidelines for patients who present with complaints or symptoms that may be related to COVID-19. Concern for asthma exacerbation, requiring supplemental oxygen (is on no oxygen at baseline). Chest x-ray with mild cardiomegaly and interstitial infiltrates concerning for edema versus atypical infection. When asked if she has ever had fluid on the lungs states "I think maybe a few times." EMR reviewed with no prior echocardiogram. Rapid flu and Covid negative. Labs with uncontrolled, nonketotic hyperglycemia. Will admit for further medical management complex cardiology consultation given cardiomegaly. I have spoken with the patient and/or caregivers. I have explained the patient's condition, diagnosis and treatment plan based on the information available to me at this time. I have answered the patient's and/or caregivers questions and answered any concerns. The patient and/or caregivers have as good an understanding of the patient's diagnosis, condition and treatment plan as can be expected at this point. The patient has been stabilized within the capability of the emergency department. The patient will be transported for further care and management or will be moved to an observation or inpatient service. I have communicated with the staff or medical practitioner taking over this patient's care. Dragon Disclaimer: Dragon Disclaimer: This electronic medical record was generated, in whole or in part, using a voice recognition dictation system. Departure Departure Impression: Primary Impression: Person under investigation for COVID-19 Additional Impressions: Asthma exacerbation Cardiomegaly Acute respiratory failure with hypoxia Disposition: ADMITTED INPATIENT Admitting Physician: TIAN (Dr. Polo) Condition: STABLE Referrals: PANCHO VAZQUEZ APRN (PCP) CYNTHIA REYNOLDS DO Jun 16, 2021 17:31
[2021-06-16 19:00] VITALS: BP 146/65
[2021-06-16] MEDS ORDERED: DEXTROSE 50% 25 GM / 50ML DISP.SYRIN. IV PRN (19:45)
[2021-06-16] MEDS ORDERED: ALBUTEROL SULFATE 2.5 MG/3 ML NEBU. INH PRN (19:45)
[2021-06-16] MEDS: metFORMIN 500 MG TABLET PO SCH (20:00)
[2021-06-16] MEDS: INSULIN LISPRO 300 UNITS/3 ML VIAL. SQ SCH (20:00)
[2021-06-16] MEDS ORDERED: IPRATRPIUM/ALBUTEROL 0.5/2.5MG 3 ML NEBU. NEB SCH (20:00)
--- NOTE | 2021-06-16 20:13 | PDOC1 ---
History and Physical Date of Admission Date of Admission DATE: 06/16/21 TIME: 20:09 Identification/Chief Complaint Chief Complaint cough, short of breath Source Source: Chart review, Patient History of Present Illness History of Present Illness MS. Rea is a 45-year-old female admit with acute hypoxia, shortness of breath and cough. She came to the ED with complaints of worsening shortness of breath over the past week. Patient refuses Covid vaccine but has had her influenza vaccine. She had worked in a alf, and is now at home, which she finds stressful. Her grandkids have been a little ill lately, her 5 yo grandson had COVID twice, last time was about 6 mos ago. Past Medical History Cardiovascular: HTN Pulmonary: Asthma, Bronchitis, COPD Heme/Onc: No pertinent hx Endocrine: Diabetes Past Surgical History Past Surgical History: No pertinent history Family History Family History: Coronary Artery Disease Social History Smoke: <1 pack per day ALCOHOL: rare Drugs: None Current Problem List Problem List Problems Medical Problems: (1) Acute respiratory failure with hypoxia Status: Acute (2) Asthma exacerbation Status: Acute (3) Cardiomegaly Status: Acute (4) Person under investigation for COVID-19 Status: Acute Current Medications Current Medications Current Medications Albuterol/ Ipratropium (Duoneb) 9 ml 1X ONCE NEB Last administered on 06/16/21at 11:15; Start 06/16/21 at 11:15; Stop 06/16/21 at 11:16; Status DC Dexamethasone Sodium Phosphate (Decadron) 10 mg 1X ONCE IV Last administered on 06/16/21at 13:23; Start 06/16/21 at 11:15; Stop 06/16/21 at 11:16; Status DC Albuterol Sulfate (Ventolin Neb Soln) 2.5 mg PRN Q4HRS PRN INH SHORTNESS OF BREATH; Start 06/16/21 at 19:45 Amlodipine Besylate (Norvasc) 10 mg DAILY PO ; Start 06/17/21 at 09:00 Furosemide (Lasix) 20 mg DAILY PO ; Start 06/17/21 at 09:00 Guaifenesin (Mucinex) 600 mg BID PO ; Start 06/16/21 at 21:00 Lisinopril (Prinivil) 5 mg DAILY PO ; Start 06/17/21 at 09:00 Metformin HCl (Glucophage) 500 mg BIDWMEALS PO ; Start 06/16/21 at 20:00 Insulin Human Lispro (HumaLOG) 20 units TIDWMEALS SQ ; Start 06/16/21 at 20:00 Albuterol/ Ipratropium (Duoneb) 3 ml RTQID NEB ; Start 06/16/21 at 20:00; Stop 06/16/21 at 20:05; Status DC Prednisone (Prednisone) 40 mg DAILY PO ; Start 06/17/21 at 09:00 Insulin Glargine (Lantus Syringe) 30 unit QHS SQ ; Start 06/16/21 at 21:00 Insulin Human Lispro (HumaLOG) 0-9 UNITS TIDWMEALS SQ ; Start 06/17/21 at 08:00 Dextrose (Dextrose 50%-Water Syringe) 12.5 gm PRN Q15MIN PRN IV SEE COMMENTS; Start 06/16/21 at 19:45 Albuterol/ Ipratropium (Combivent Respimat 20-100 Mcg) 1 puff RTQID INH ; Start 06/16/21 at 21:00 Active Scripts Active Proair Hfa Inhaler (Albuterol Sulfate) 8.5 Gm Hfa.aer.ad 1 Puff INH PRN Q4HRS PRN Medrol (Methylprednisolone) 4 Mg Tab.ds.pk 1 Pkg PO UD Prednisone 50 Mg Tablet 1 Tab PO DAILY 4 Days first dose given in ER start on 06/19/20 Proair Hfa Inhaler (Albuterol Sulfate) 8.5 Gm Hfa.aer.ad 2 Puff IH PRN Q4-6HRS PRN Indomethacin 50 Mg Capsule 1 Cap PO TID PRN 10 Days with food Diflucan (Fluconazole) 150 Mg Tablet 1 Tab PO ONCE may repeat in 72 hours if symptoms persist Prednisone 50 Mg Tablet 1 Tab PO DAILY 5 Days Tessalon Perle (Benzonatate) 100 Mg Capsule 1 Cap PO TID PRN 7 Days Levaquin (Levofloxacin) 750 Mg Tablet 1 Tab PO DAILY 5 Days Diflucan (Fluconazole) 150 Mg Tablet 1 Tab PO ONCE Medrol (Methylprednisolone) 4 Mg Tab.ds.pk 1 Pkg PO UD Levaquin (Levofloxacin) 500 Mg Tablet 1 Tab PO DAILY Permethrin 60 Gm Cream..g. 1 Jazmine TP ONCE apply thin layer to ALL skin surfaces from neck to toes for 8-14 hours then wash off, repeat in 1 week ? avoid contact with eyes and mucous membranes Mucinex (Guaifenesin) 600 Mg Tablet.er 600 Mg PO BID Doxycycline Hyclate 100 Mg Tablet 100 Mg PO BID Prednisone (Prednisone) 10 Mg Tablet 10 Mg PO UD take 4 tablets by mouth daily for 4 days, then take 3 tablets by mouth daily for 2 days, then take 2 tablets by mouth daily for 2 days, then take 1 tablets by mouth daily for 2 days, then stop. Culturelle Capsule (L. Rhamnosus GG/Inulin) 1 Each Cap.sprink 1 Each PO DAILY 18 Days Prednisone (Prednisone) 10 Mg Tablet 10 Mg PO UD Take 6 tablets by mouth twice a day for 2 days, then take 5 tablets by mouth twice a day for 3 days, then take 4 tablet by mouth twice a day for 3 days, then take 3 tablet by mouth daily x 3 days, then take 2 tablet by mouth daily x 3 days, then take 1 tablet by mouth daily x 3 days, then stop Azithromycin Tablet (Azithromycin) 250 Mg Tablet 250 Mg PO DAILY Proair Hfa Inhaler (Albuterol Sulfate) 8.5 Gm Hfa.aer.ad 1 Puff INH PRN Q6HRS PRN 5 Days Combivent Respimat Inhal (Ipratropium/Albuterol Sulfate) 4 Gm Aer.w.adap 2 Inh IH QID Reported Potassium Chloride 10 Meq Tablet.er 1 Tab PO DAILY Omeprazole 20 Mg Capsule.dr 1 Cap PO DAILY Combivent Respimat Inhal (Ipratropium/Albuterol Sulfate) 4 Gm Aer.w.adap 2 Puff INH QID Janumet Xr 50-1,000 Mg Tablet (Sitagliptin Phos/Metformin Hcl) 1 Each Tbmp.24hr 2 Tab PO DAILYWSUP Symbicort 160-4.5 Mcg Inhaler (Budesonide/Formoterol Fumarate) 10.2 Gm Hfa.aer. ad 1 Inh INH BID Levemir Flextouch (Insulin Detemir) 100 Unit/1 Ml Insuln.pen 25 Units SQ DAILY Novolog Flexpen (Insulin Aspart) 100 Unit/1 Ml Insuln.pen 20 Units SQ TID Metformin Hcl 1,000 Mg Tablet 1 Tab PO BID Montelukast Sodium Tablet (Montelukast Sodium) 10 Mg Tablet 1 Tab PO DAILY Amlodipine Besylate 10 Mg Tablet 1 Tab PO DAILY Simvastatin 10 Mg Tablet 1 Tab PO DAILY Naproxen 500 Mg Tablet 1 Tab PO BID Lisinopril 5 Mg Tablet 1 Tab PO DAILY Furosemide 20 Mg Tablet 1 Tab PO DAILY Protonix (Pantoprazole Sodium) 20 Mg Tablet.dr 40 Mg PO DAILY Symbicort 160-4.5 Mcg Inhaler (Budesonide/Formoterol Fumarate) 10.2 Gm Hfa.aer.ad 1 Puff IH BID Metformin Hcl 500 Mg Tablet 500 Mg PO BIDWMEALS Furosemide 20 Mg Tablet 20 Mg PO DAILY Lisinopril 5 Mg Tablet 5 Mg PO DAILY Levemir Flextouch (Insulin Detemir) 100 Unit/1 Ml Insuln.pen 14 Unit SQ HS Amlodipine Besylate 10 Mg Tablet 10 Mg PO DAILY Potassium Chloride 10 Meq Tablet.er 10 Meq PO DAILY Allergies Allergies: Coded Allergies: sulfamethoxazole (Verified Allergy, Intermediate, 10/07/17) trimethoprim (Verified Allergy, Intermediate, 10/07/17) ROS General: No: Chills, Night Sweats, Fatigue, Malaise, Appetite, Other PSYCHOLOGICAL ROS: No: Anxiety, Behavioral Disorder, Concentration difficultie, Decreased libido, Depression, Disorientation, Hallucinations, Hostility, Irritablity, Memory difficulties, Mood Swings, Obsessive thoughts, Physical abuse, Sexual abuse, Sleep disturbances, Suicidal ideation, Other Eyes: No Blurry vision, No Decreased vision, No Double vision, No Dry eyes, No Excessive tearing, No Eye Pain, No Itchy Eyes, No Loss of vision, No Photophobia, No Scotomata, No Uses contacts, No Uses glasses, No Other HEENT: No: Heacaches, Visual Changes, Hearing change, Nasal congestion, Nasal discharge, Oral lesions, Sinus pain, Sore Throat, Epistaxis, Sneezing, Snoring, Tinnitus, Vertigo, Vocal changes, Other Respiratory: YES: Cough, Shortness of breath, SOB with excertion, Sputum Changes; No: Hemoptysis, Orthopnea, Pleuritic Pain, Stridor, Tachypnea, Wheezing, Other Cardiovascular: No Chest Pain, No Palpitations, No Orthopnea, No Paroxysmal Noc. Dyspnea, No Edema, No Lt Headedness, No Other Gastrointestinal: Yes Nausea; No Vomiting, No Abdominal Pain, No Diarrhea, No Constipation, No Melena, No Hematochezia, No Other Genitourinary: No Dysuria, No Frequency, No Incontinence, No Hematuria, No Retention, No Discharge, No Urgency, No Pain, No Flank Pain, No Other, No , No , No , No , No , No , No Musculoskeletal: No Gait Disturbance, No Joint Pain, No Joint Stiffness, No Joint Swelling, No Muscle Pain, No Muscular Weakness, No Pain In:, No Swelling In:, No Other Neurological: No Behavorial Changes, No Bowel/Bladder ControlChng, No Confusion, No Dizziness, No Gait Disturbance, No Headaches, No Impaired Coord/balance, No Memory Loss, No Numbness/Tingling, No Seizures, No Speech Problems, No Tremors, No Visual Changes, No Weakness, No Other Skin: Yes Dry Skin; No Eczema, No Hair Changes, No Lumps, No Mole Changes, No Mottling, No Nail Changes, No Pruritus, No Rash, No Skin Lesion Changes, No Other, No Acne Physical Exam General: Alert, Oriented X3, Cooperative, No acute distress HEENT: Atraumatic, PERRLA, EOMI, Mucous membr. moist/pink Lungs: Clear to auscultation Heart: S1S2, no murmurs Abdomen: Normal bowel sounds, Soft Extremities: No cyanosis, Normal pulses Skin: No significant lesion Neuro: Normal speech, Normal tone Psych/Mental Status: Mental status NL Vitals Vitals Vital Signs Date Time Temp Pulse Resp B/P (MAP) Pulse Ox O2 Delivery O2 Flow Rate FiO2 06/16/21 19:00 98.4 68 19 146/65 (92) 92 Nasal Cannula 2.0 98.4 Labs Labs Laboratory Tests Test 06/16/21 11:28 06/16/21 11:30 White Blood Count 7.5 x10^3/uL (4.0-11.0) Red Blood Count 4.32 x10^6/uL (3.50-5.40) Hemoglobin 13.0 g/dL (12.0-15.5) Hematocrit 39.1 % (36.0-47.0) Mean Corpuscular Volume 90 fL (79-100) Mean Corpuscular Hemoglobin 30 pg (25-35) Mean Corpuscular Hemoglobin Concent 33 g/dL (31-37) Red Cell Distribution Width 15.3 % (11.5-14.5) Platelet Count 291 x10^3/uL (140-400) Neutrophils (%) (Auto) 64 % (31-73) Lymphocytes (%) (Auto) 29 % (24-48) Monocytes (%) (Auto) 6 % (0-9) Eosinophils (%) (Auto) 1 % (0-3) Basophils (%) (Auto) 1 % (0-3) Neutrophils # (Auto) 4.8 x10^3/uL (1.8-7.7) Lymphocytes # (Auto) 2.2 x10^3/uL (1.0-4.8) Monocytes # (Auto) 0.4 x10^3/uL (0.0-1.1) Eosinophils # (Auto) 0.1 x10^3/uL (0.0-0.7) Basophils # (Auto) 0.0 x10^3/uL (0.0-0.2) Sodium Level 137 mmol/L (136-145) Potassium Level 3.7 mmol/L (3.5-5.1) Chloride Level 101 mmol/L (98-107) Carbon Dioxide Level 32 mmol/L (21-32) Anion Gap 4 (6-14) Blood Urea Nitrogen 7 mg/dL (7-20) Creatinine 1.0 mg/dL (0.6-1.0) Estimated GFR (Cockcroft-Gault) 71.9 BUN/Creatinine Ratio 7 (6-20) Glucose Level 262 mg/dL (70-99) Calcium Level 8.9 mg/dL (8.5-10.1) Total Bilirubin 0.4 mg/dL (0.2-1.0) Aspartate Amino Transf (AST/SGOT) 13 U/L (15-37) Alanine Aminotransferase (ALT/SGPT) 23 U/L (14-59) Alkaline Phosphatase 109 U/L (46-116) Total Protein 6.7 g/dL (6.4-8.2) Albumin 2.9 g/dL (3.4-5.0) Albumin/Globulin Ratio 0.8 (1.0-1.7) Serum Test, Qualitative Negative (NEG) Influenza Type A Antigen Negative (NEGATIVE) Influenza Type B Antigen Negative (NEGATIVE) SARS-CoV-2 Antigen (Rapid) Negative (NEGATIVE) Troponin I High Sensitivity 5 ng/L (4-50) Laboratory Tests Test 06/16/21 11:28 06/16/21 11:30 White Blood Count 7.5 x10^3/uL (4.0-11.0) Red Blood Count 4.32 x10^6/uL (3.50-5.40) Hemoglobin 13.0 g/dL (12.0-15.5) Hematocrit 39.1 % (36.0-47.0) Mean Corpuscular Volume 90 fL (79-100) Mean Corpuscular Hemoglobin 30 pg (25-35) Mean Corpuscular Hemoglobin Concent 33 g/dL (31-37) Red Cell Distribution Width 15.3 % (11.5-14.5) Platelet Count 291 x10^3/uL (140-400) Neutrophils (%) (Auto) 64 % (31-73) Lymphocytes (%) (Auto) 29 % (24-48) Monocytes (%) (Auto) 6 % (0-9) Eosinophils (%) (Auto) 1 % (0-3) Basophils (%) (Auto) 1 % (0-3) Neutrophils # (Auto) 4.8 x10^3/uL (1.8-7.7) Lymphocytes # (Auto) 2.2 x10^3/uL (1.0-4.8) Monocytes # (Auto) 0.4 x10^3/uL (0.0-1.1) Eosinophils # (Auto) 0.1 x10^3/uL (0.0-0.7) Basophils # (Auto) 0.0 x10^3/uL (0.0-0.2) Sodium Level 137 mmol/L (136-145) Potassium Level 3.7 mmol/L (3.5-5.1) Chloride Level 101 mmol/L (98-107) Carbon Dioxide Level 32 mmol/L (21-32) Anion Gap 4 (6-14) Blood Urea Nitrogen 7 mg/dL (7-20) Creatinine 1.0 mg/dL (0.6-1.0) Estimated GFR (Cockcroft-Gault) 71.9 BUN/Creatinine Ratio 7 (6-20) Glucose Level 262 mg/dL (70-99) Calcium Level 8.9 mg/dL (8.5-10.1) Total Bilirubin 0.4 mg/dL (0.2-1.0) Aspartate Amino Transf (AST/SGOT) 13 U/L (15-37) Alanine Aminotransferase (ALT/SGPT) 23 U/L (14-59) Alkaline Phosphatase 109 U/L (46-116) Total Protein 6.7 g/dL (6.4-8.2) Albumin 2.9 g/dL (3.4-5.0) Albumin/Globulin Ratio 0.8 (1.0-1.7) Serum Test, Qualitative Negative (NEG) Influenza Type A Antigen Negative (NEGATIVE) Influenza Type B Antigen Negative (NEGATIVE) SARS-CoV-2 Antigen (Rapid) Negative (NEGATIVE) Troponin I High Sensitivity 5 ng/L (4-50) VTE Prophylaxis Ordered VTE Prophylaxis Devices: No VTE Pharmacological Prophylaxi: Yes Assessment/Plan Assessment/Plan acute hypoxia and acute asthma exacerbation PUI for COVID, she is very opposed to vaccination obese, BMI 45, down from 48 2 years ago, with mild malnutrition, Albumin 2.9 tobacco use disorder DM2, on insulin PCP is [facility] Justifications for Admission Other Justification MEGAN DEVRIES MD Jun 16, 2021 20:13
[2021-06-16] MEDS: INSULIN GLARGINE SYRINGE. SQ SCH (21:00)
[2021-06-16] MEDS: IPRATROPIUM/ALBUTEROL 20/100mcg/INH INHALER. INH SCH (21:00)
[2021-06-16] MEDS: ENOXAPARIN 40 MG/0.4 ML SYRINGE. SQ SCH (21:00)
[2021-06-16] MEDS: SIMVASTATIN 10 MG TABLET PO SCH (21:30)
[2021-06-16] MEDS ORDERED: FUROSEMIDE 20 MG/2 ML VIAL. IVP ONE (22:00)
[2021-06-16] MEDS ORDERED: POTASSIUM CHLORIDE 10 MEQ TABLET.ER. PO ONE (22:00)
[2021-06-16] MEDS ORDERED: FUROSEMIDE 20 MG TABLET PO ONE (22:00)
[2021-06-16] MEDS ORDERED: LISINOPRIL 5 MG TABLET. PO ONE (22:00)
[2021-06-16 22:39] VITALS: BP 152/68
[2021-06-17 03:00] VITALS: BP 148/72
[2021-06-17 07:00] VITALS: BP 111/69
[2021-06-17] MEDS: predniSONE 20 MG TABLET PO SCH (08:12)
[2021-06-17] MEDS: FUROSEMIDE 20 MG TABLET PO SCH (08:12)
[2021-06-17] MEDS: metFORMIN 500 MG TABLET PO SCH ×2 (08:12→17:31)
[2021-06-17] MEDS: POTASSIUM CHLORIDE 10 MEQ TABLET.ER. PO SCH (08:12)
[2021-06-17] MEDS: ENOXAPARIN 40 MG/0.4 ML SYRINGE. SQ SCH ×2 (08:13→20:49)
[2021-06-17] MEDS: LISINOPRIL 5 MG TABLET. PO SCH (08:14)
[2021-06-17] MEDS: IPRATROPIUM/ALBUTEROL 20/100mcg/INH INHALER. INH SCH ×2 (08:15→11:56)
[2021-06-17] MEDS: INSULIN LISPRO 300 UNITS/3 ML VIAL. SQ SCH ×6 (08:19→17:28)
--- NOTE | 2021-06-17 10:55 | PDOC2 ---
MYRNA SMITH FABRIC SEPARATOR OPERATOR 06/17/21 1055: CARDIAC CONSULT DATE OF CONSULT Date of Consult DATE: 06/17/21 TIME: 10:52 REASON FOR CONSULT Reason for Consult: Cardiomegaly REFERRING PHYSICIAN Referring Physician: [facility] SOURCE Source: Chart review, Patient HISTORY OF PRESENT ILLNESS HISTORY OF PRESENT ILLNESS This is a 45 yo female admitted for complains of SOA. She has been more SOA in the last 4 days and yet she continues to smoke tobacco consuming 1ppd. Denies any palpitations, nausea and no fever or chills. Her legs have been more swollen. She does not want covid-19 vaccination. No hx of CAD, CHF in the past. No hx of arrhythmia nor VTE. PAST MEDICAL HISTORY Cardiovascular: HTN, Hyperlipidemia Pulmonary: Asthma CENTRAL NERVOUS SYSTEM: Other (No pertinent history) Musculoskeletal: Other (obesity) Rheumatologic: No pertinent hx Infectious disease: No pertinent hx Renal/: Other (nephrolithiasis) Endocrine: No pertinent hx PAST SURGICAL HISTORY Past Surgical History: Other (laser removal of renal stones) FAMILY HISTORY Family History: Coronary Artery Disease (mother) SOCIAL HISTORY Smoke: 1 pack per day ( since she was 14 yo) ALCOHOL: none Drugs: None Lives: with Family CURRENT MEDICATIONS CURRENT MEDICATIONS Current Medications Medications (Trade) Dose Ordered Sig/Rock Route PRN Reason Start Time Stop Time Status Last Admin Dose Admin Albuterol/ Ipratropium (Duoneb) 9 ml 1X ONCE NEB 06/16/21 11:15 06/16/21 11:16 DC 06/16/21 11:15 Dexamethasone Sodium Phosphate (Decadron) 10 mg 1X ONCE IV 06/16/21 11:15 06/16/21 11:16 DC 06/16/21 13:23 Furosemide (Lasix) 20 mg DAILY PO 06/17/21 09:00 06/17/21 08:12 Guaifenesin (Mucinex) 600 mg BID PO 06/16/21 21:00 06/17/21 08:11 Lisinopril (Prinivil) 5 mg DAILY PO 06/17/21 09:00 06/17/21 08:14 Metformin HCl (Glucophage) 500 mg BIDWMEALS PO 06/16/21 20:00 06/17/21 08:12 Insulin Human Lispro (HumaLOG) 20 units TIDWMEALS SQ 06/16/21 20:00 06/17/21 08:19 Prednisone (Prednisone) 40 mg DAILY PO 06/17/21 09:00 06/17/21 08:12 Insulin Glargine (Lantus Syringe) 30 unit QHS SQ 06/16/21 21:00 06/16/21 21:00 Insulin Human Lispro (HumaLOG) 0-9 UNITS TIDWMEALS SQ 06/17/21 08:00 06/17/21 08:20 Albuterol/ Ipratropium (Combivent Respimat 20-100 Mcg) 1 puff RTQID INH 06/16/21 21:00 06/17/21 08:15 Enoxaparin Sodium (Lovenox 40mg Syringe) 40 mg Q12HR SQ 06/16/21 21:00 06/17/21 08:13 Potassium Chloride (Klor-Con) 10 meq DAILY PO 06/17/21 09:00 06/17/21 08:12 Simvastatin (Zocor) 10 mg QHS PO 06/16/21 22:00 06/16/21 21:30 Amlodipine Besylate (Norvasc) 10 mg HS PO 06/16/21 22:00 06/16/21 21:30 Potassium Chloride (Klor-Con) 10 meq 1X ONCE PO 06/16/21 22:00 06/16/21 22:01 DC 06/16/21 21:30 Lisinopril (Prinivil) 5 mg 1X ONCE PO 06/16/21 22:00 06/16/21 22:01 DC 06/16/21 21:30 Furosemide (Lasix) 20 mg 1X ONCE PO 06/16/21 22:00 06/16/21 22:01 DC 06/16/21 21:29 ALLERGIES ALLERGIES: Coded Allergies: sulfamethoxazole (Verified Allergy, Intermediate, 10/07/17) trimethoprim (Verified Allergy, Intermediate, 10/07/17) ROS Review of System 14 point ROS evaluated with pertinent positives noted per HPI PHYSICAL EXAM General: Alert, Oriented X3, Cooperative, No acute distress HEENT: Atraumatic, Mucous membr. moist/pink Lungs: Other (diffuse wheeze) Heart: Regular rate (SR), Normal S1, Normal S2, No murmurs Abdomen: Soft, No tenderness, Other (obese) Extremities: No cyanosis, Other (1+ bilateral LE pitting edema) Skin: No breakdown, No significant lesion Neuro: Normal speech, Sensation intact Psych/Mental Status: Mood NL MUSCULOSKELETAL: Full range of motion without pain VITALS/I&O VITALS/I&O: Vital Signs Date Time Temp Pulse Resp B/P (MAP) Pulse Ox O2 Delivery O2 Flow Rate FiO2 06/17/21 08:14 88 116/69 06/17/21 08:00 Nasal Cannula 2.0 06/17/21 07:00 98.1 18 94 98.1 I & O 06/16/21 06/16/21 06/17/21 15:00 23:00 07:00 Intake Total 300 ml 500 ml Balance 300 ml 500 ml LABS Lab: Laboratory Tests Test 06/16/21 11:28 06/16/21 11:30 06/16/21 20:51 06/17/21 07:23 White Blood Count 7.5 x10^3/uL (4.0-11.0) Red Blood Count 4.32 x10^6/uL (3.50-5.40) Hemoglobin 13.0 g/dL (12.0-15.5) Hematocrit 39.1 % (36.0-47.0) Mean Corpuscular Volume 90 fL (79-100) Mean Corpuscular Hemoglobin 30 pg (25-35) Mean Corpuscular Hemoglobin Concent 33 g/dL (31-37) Red Cell Distribution Width 15.3 % (11.5-14.5) H Platelet Count 291 x10^3/uL (140-400) Neutrophils (%) (Auto) 64 % (31-73) Lymphocytes (%) (Auto) 29 % (24-48) Monocytes (%) (Auto) 6 % (0-9) Eosinophils (%) (Auto) 1 % (0-3) Basophils (%) (Auto) 1 % (0-3) Neutrophils # (Auto) 4.8 x10^3/uL (1.8-7.7) Lymphocytes # (Auto) 2.2 x10^3/uL (1.0-4.8) Monocytes # (Auto) 0.4 x10^3/uL (0.0-1.1) Eosinophils # (Auto) 0.1 x10^3/uL (0.0-0.7) Basophils # (Auto) 0.0 x10^3/uL (0.0-0.2) Sodium Level 137 mmol/L (136-145) Potassium Level 3.7 mmol/L (3.5-5.1) Chloride Level 101 mmol/L (98-107) Carbon Dioxide Level 32 mmol/L (21-32) Anion Gap 4 (6-14) L Blood Urea Nitrogen 7 mg/dL (7-20) Creatinine 1.0 mg/dL (0.6-1.0) Estimated GFR (Cockcroft-Gault) 71.9 BUN/Creatinine Ratio 7 (6-20) Glucose Level 262 mg/dL (70-99) H Calcium Level 8.9 mg/dL (8.5-10.1) Total Bilirubin 0.4 mg/dL (0.2-1.0) Aspartate Amino Transferase (AST) 13 U/L (15-37) L Alanine Aminotransferase (ALT) 23 U/L (14-59) Alkaline Phosphatase 109 U/L (46-116) Total Protein 6.7 g/dL (6.4-8.2) Albumin 2.9 g/dL (3.4-5.0) L Albumin/Globulin Ratio 0.8 (1.0-1.7) L Serum Test, Qualitative Negative (NEG) Influenza Type A Antigen Negative (NEGATIVE) Influenza Type B Antigen Negative (NEGATIVE) SARS-CoV-2 RNA (STEF) Negative (Negative) SARS-CoV-2 Antigen (Rapid) Negative (NEGATIVE) Troponin I High Sensitivity 5 ng/L (4-50) Glucose (Fingerstick) 572 mg/dL (70-99) *H 447 mg/dL (70-99) H Laboratory Tests 06/16/21 11:28 Laboratory Tests 06/16/21 11:28 ASSESSMENT/PLAN ASSESSMENT/PLAN 1. Asthma exacerbation 2. Acute diastolic CHF 3. HTN: controlled 4. HLP: on zocor 5. Morbid obesity 6. Possible COPD with continued tobaccoism 7. DM2: uncontrolled Recommendations 1. TTE, continue BP regimen 2. Lasix therapy ESTEVAN MCKEON MD 06/17/21 1500: CARDIAC CONSULT ASSESSMENT/PLAN ASSESSMENT/PLAN Patient seen and examined. Agree with GENERAL PRODUCTION MANAGER's assessment and plan. Continue diuresis for acute on chronic diastolic heart failure Check 2D echo to assess LV systolic function Continue current treatment for acute asthma exacerbation Plan outpatient ischemic evaluation Thank you for your consultation MYRNA SMITH APRN Jun 17, 2021 10:55 ESTEVAN MCKEON MD Jun 17, 2021 15:00
[2021-06-17 11:00] VITALS: BP 80/62
--- NOTE | 2021-06-17 11:20 | NUR ---
SW following. Discussed with RN, pt from home, 2L (does not use oxygen at home), ada diet, independent. Flu and COVID-19 negative. Cardiology following. RN advised no SW needs at this time. SW will continue to follow.
[2021-06-17] MEDS ORDERED: FUROSEMIDE 20 MG/2 ML VIAL. IVP ONE (12:00)
[2021-06-17] MEDS: IPRATRPIUM/ALBUTEROL 0.5/2.5MG 3 ML NEBU. NEB SCH ×3 (12:30→22:00)
--- NOTE | 2021-06-17 12:46 | PDOC ---
[employer] PROGRESS NOTE Date of Service DOS: DATE: 06/17/21 TIME: 12:45 Chief Complaint Chief Complaint Asthma COPD CHF Tobacco abuse Hypertension Overweight Bronchi Diabetes History of Present Illness History of Present Illness 06/17/2021 Patient seen and examined She is still wheezing quite a bit Chart reviewed Discussed with RN Vitals/I&O Vitals/I&O: Vital Signs Date Time Temp Pulse Resp B/P (MAP) Pulse Ox O2 Delivery O2 Flow Rate FiO2 06/17/21 11:00 98.5 71 18 80/62 (68) 93 Nasal Cannula 2.0 98.5 I & O 06/16/21 06/16/21 06/17/21 15:00 23:00 07:00 Intake Total 300 ml 500 ml Balance 300 ml 500 ml Physical Exam General: Alert, Oriented X3, Cooperative, No acute distress Heart: Regular rate (SR), Normal S1, Normal S2, No murmurs Lungs: Wheezing Abdomen: Soft, No tenderness, Other (obese) Extremities: No cyanosis, Other (1+ bilateral LE pitting edema) Skin: No breakdown, No significant lesion Labs Labs: Laboratory Tests Test 06/16/21 20:51 06/17/21 07:23 06/17/21 10:57 Glucose (Fingerstick) 572 mg/dL (70-99) 447 mg/dL (70-99) 357 mg/dL (70-99) Assessment and Plan Assessmemt and Plan Problems Medical Problems: (1) Acute respiratory failure with hypoxia Status: Acute (2) Asthma exacerbation Status: Acute (3) Cardiomegaly Status: Acute (4) Person under investigation for COVID-19 Status: Acute Asthma COPD CHF Tobacco abuse Hypertension Overweight Bronchi Diabetes Plan IV steroids Nebulizers Antibiotics O2 Lasix Antihypertensive Home meds DVT prophylaxis Trend lab PT OT Full code Appreciate cardiology input Hope to discharge when she stops wheezing Comment Review of Relevant I have reviewed the following items papa (where applicable) has been applied. Medications: Current Medications Medications (Trade) Dose Ordered Sig/Rock Route PRN Reason Start Time Stop Time Status Last Admin Dose Admin Furosemide (Lasix) 20 mg DAILY PO 06/17/21 09:00 06/17/21 08:12 Guaifenesin (Mucinex) 600 mg BID PO 06/16/21 21:00 06/17/21 08:11 Lisinopril (Prinivil) 5 mg DAILY PO 06/17/21 09:00 06/17/21 08:14 Metformin HCl (Glucophage) 500 mg BIDWMEALS PO 06/16/21 20:00 06/17/21 08:12 Insulin Human Lispro (HumaLOG) 20 units TIDWMEALS SQ 06/16/21 20:00 06/17/21 11:58 Prednisone (Prednisone) 40 mg DAILY PO 06/17/21 09:00 06/17/21 08:12 Insulin Glargine (Lantus Syringe) 30 unit QHS SQ 06/16/21 21:00 06/16/21 21:00 Insulin Human Lispro (HumaLOG) 0-9 UNITS TIDWMEALS SQ 06/17/21 08:00 06/17/21 11:59 Albuterol/ Ipratropium (Combivent Respimat 20-100 Mcg) 1 puff RTQID INH 06/16/21 21:00 06/17/21 12:26 DC 06/17/21 11:56 Enoxaparin Sodium (Lovenox 40mg Syringe) 40 mg Q12HR SQ 06/16/21 21:00 06/17/21 08:13 Potassium Chloride (Klor-Con) 10 meq DAILY PO 06/17/21 09:00 06/17/21 08:12 Simvastatin (Zocor) 10 mg QHS PO 06/16/21 22:00 06/16/21 21:30 Amlodipine Besylate (Norvasc) 10 mg HS PO 06/16/21 22:00 06/16/21 21:30 Potassium Chloride (Klor-Con) 10 meq 1X ONCE PO 06/16/21 22:00 06/16/21 22:01 DC 06/16/21 21:30 Lisinopril (Prinivil) 5 mg 1X ONCE PO 06/16/21 22:00 06/16/21 22:01 DC 06/16/21 21:30 Furosemide (Lasix) 20 mg 1X ONCE PO 06/16/21 22:00 06/16/21 22:01 DC 06/16/21 21:29 Furosemide (Lasix) 20 mg 1X ONCE IVP 06/17/21 12:00 06/17/21 12:02 DC 06/17/21 12:12 Justifications for Admission Other Justification PATRICIA FLORES III DO Jun 17, 2021 12:46
[2021-06-17] MEDS: DOXYCYCLINE HYCLATE 100 MG in IV DEXTROSE 5% 100ML 100 ML IV SCH ×2 (14:01→20:49)
[2021-06-17 15:43] VITALS: BP 80/62
--- NOTE | 2021-06-17 17:22 | CARD ---
MR#: [id number] Date of Study: 06/17/2021 Ordering Physician: MYRNA SMITH, Referring Physician: MYRNA SMITH Tech: Sarah Reyes [facility] APPROVED REPORT EXAM: Two-dimensional and M-mode echocardiogram with Doppler and color Doppler. Other Information Quality : AverageHR: 75bpm Rhythm : NSR INDICATION COPD Dyspnea RISK FACTORS Hypertension Obesity 2D DIMENSIONS RVDd3.2 (2.9-3.5cm)Left Atrium(2D)4.1 (1.6-4.0cm) IVSd0.9 (0.7-1.1cm)Aortic Root(2D)2.3 (2.0-3.7cm) LVDd5.6 (3.9-5.9cm)LVOT Diameter2.1 (1.8-2.4cm) PWd1.0 (0.7-1.1cm)LVDs3.4 (2.5-4.0cm) FS (%) 38.9 %SV105.5 ml Aortic Valve AoV Peak Caden.222.3cm/sAoV VTI47.3cm AO Peak GR.19.8mmHgLVOT Peak Caden.138.4cm/s AO Mean GR.11mmHgAVA (VMAX)2.16cm2 AI P 1/2 Hvwt555zu Mitral Valve MV E Wexampbf910.1cm/sMV DECEL PDID667et MV A Jjxacyoj64.4cm/sE/A Ratio1.3 Pulmonary Valve PV Peak Vkhjazvq534.4cm/s Tricuspid Valve TR P. Jdqfruth612sj/sTR Peak Gr.40mmHg LEFT VENTRICLE The left ventricle is normal size. There is normal left ventricular wall thickness. The left ventricu lar systolic function is normal and the ejection fraction is within normal range. LV ejection fracti on is 55 to 60%. There is normal LV segmental wall motion. The left ventricular diastolic function a nd filling is normal for age. RIGHT VENTRICLE The right ventricle is normal size. There is normal right ventricular wall thickness. The right ventr icular systolic function is normal. ATRIA The left atrium size is normal. The right atrium size is normal. The interatrial septum is intact wit h no evidence for an atrial septal defect or patent foramen ovale as noted on 2-D or Doppler imaging. AORTIC VALVE The aortic valve is normal in structure and function. Doppler and Color Flow revealed trace aortic re gurgitation. There is no significant aortic valvular stenosis. MITRAL VALVE The mitral valve is normal in structure and function. There is no evidence of mitral valve prolapse. There is no mitral valve stenosis. Doppler and Color-flow revealed mild mitral regurgitation. TRICUSPID VALVE The tricuspid valve is normal in structure and function. Doppler and Color Flow revealed trace tricus pid regurgitation. Estimated PAP of 48 mmHg. There is no tricuspid valve stenosis. PULMONIC VALVE The pulmonary valve is normal in structure and function. Doppler and Color Flow revealed no pulmonic valvular regurgitation. GREAT VESSELS The aortic root is normal in size. The ascending aorta is normal in size. The IVC is dilated and maurice apses <50% with inspiration. PERICARDIAL EFFUSION There is no evidence of significant pericardial effusion. Critical Notification Critical Value: No <Conclusion> The left ventricle is normal size. The left ventricular systolic function is normal and the ejection fraction is within normal range. LV ejection fraction is 55 to 60%. Doppler and Color Flow revealed trace aortic regurgitation. There is no significant aortic valvular stenosis. Doppler and Color-flow revealed mild mitral regurgitation. Doppler and Color Flow revealed trace tricuspid regurgitation. Estimated PAP of 48 mmHg. Signed by : Lang Castillo MD Electronically Approved : 06/17/2021 17:22:00
--- NOTE | 2021-06-17 18:00 | NUR ---
Nurse' s note: Combivent inhaler switched to Neb, to be administered by RT
--- NOTE | 2021-06-17 18:02 | NUR ---
Nurse's note: The patient refused meals prepared for her, only ate a portion at breakfast. This nurse discussed with her that she is on ADA diet. The patient verbalized she is aware but the food is too restrictive for her. She opted for chicken strips and fries.
[2021-06-17 19:00] VITALS: BP 133/62
[2021-06-17] MEDS: SIMVASTATIN 10 MG TABLET PO SCH (20:49)
[2021-06-17] MEDS: INSULIN GLARGINE SYRINGE. SQ SCH (20:52)
[2021-06-17 23:00] VITALS: BP 114/60
[2021-06-18 03:00] VITALS: BP 115/59
[2021-06-18 06:14] LABS: CHOLESTEROL/HDL RATIO 2.9
[2021-06-18 07:00] VITALS: BP 119/60
[2021-06-18] MEDS: IPRATRPIUM/ALBUTEROL 0.5/2.5MG 3 ML NEBU. NEB SCH ×2 (07:55→10:44)
[2021-06-18] MEDS: INSULIN LISPRO 300 UNITS/3 ML VIAL. SQ SCH ×2 (08:24→08:25)
[2021-06-18] MEDS: FUROSEMIDE 20 MG TABLET PO SCH (08:32)
[2021-06-18] MEDS: POTASSIUM CHLORIDE 10 MEQ TABLET.ER. PO SCH (08:32)
[2021-06-18] MEDS: metFORMIN 500 MG TABLET PO SCH (08:32)
[2021-06-18] MEDS: ENOXAPARIN 40 MG/0.4 ML SYRINGE. SQ SCH (08:33)
[2021-06-18] MEDS: predniSONE 20 MG TABLET PO SCH (08:33)
[2021-06-18] MEDS: DOXYCYCLINE HYCLATE 100 MG in IV DEXTROSE 5% 100ML 100 ML IV SCH (08:37)
[2021-06-18] MEDS: LISINOPRIL 5 MG TABLET. PO SCH (08:38)
--- NOTE | 2021-06-18 10:05 | PDOC ---
[employer] PROGRESS NOTE Date of Service DOS: DATE: 06/18/21 TIME: 10:04 Chief Complaint Chief Complaint Asthma COPD CHF Tobacco abuse Hypertension Overweight Bronchi Diabetes History of Present Illness History of Present Illness 06/18/2021 Patient seen exam She seems to be approaching her baseline We will go ahead and discharge on Medrol Dosepak and albuterol and p.o. antibiotic 06/17/2021 Patient seen and examined She is still wheezing quite a bit Chart reviewed Discussed with RN Vitals/I&O Vitals/I&O: Vital Signs Date Time Temp Pulse Resp B/P (MAP) Pulse Ox O2 Delivery O2 Flow Rate FiO2 06/18/21 08:38 88 119/60 06/18/21 07:55 98 Nasal Cannula 2.0 06/18/21 07:00 98.1 16 98.1 I & O 06/17/21 06/17/21 06/18/21 15:00 23:00 07:00 Intake Total 240 ml 720 ml Balance 240 ml 720 ml Physical Exam General: Alert, Oriented X3, Cooperative, No acute distress Heart: Regular rate (SR), Normal S1, Normal S2, No murmurs Lungs: Wheezing Abdomen: Soft, No tenderness, Other (obese) Extremities: No cyanosis, Other (1+ bilateral LE pitting edema) Skin: No breakdown, No significant lesion Labs Labs: Laboratory Tests Test 06/17/21 10:57 06/17/21 16:42 06/17/21 20:00 06/18/21 04:45 Glucose (Fingerstick) 357 mg/dL (70-99) 280 mg/dL (70-99) 368 mg/dL (70-99) OB-Kxb-E-Type Natriuretic Peptide 37 pg/mL (0-124) Triglycerides Level 90 mg/dL (0-150) Cholesterol Level 179 mg/dL (0-200) LDL Cholesterol, Calculated 100 mg/dL (0-100) VLDL Cholesterol, Calculated 18 mg/dL (0-40) Non-HDL Cholesterol Calculated 118 mg/dL (0-129) HDL Cholesterol 61 mg/dL (40-60) Cholesterol/HDL Ratio 2.9 Thyroid Stimulating Hormone (TSH) 0.233 uIU/mL (0.358-3.74) Test 06/18/21 07:04 Glucose (Fingerstick) 151 mg/dL (70-99) Assessment and Plan Assessmemt and Plan Problems Medical Problems: (1) Acute respiratory failure with hypoxia Status: Acute (2) Asthma exacerbation Status: Acute (3) Cardiomegaly Status: Acute (4) Person under investigation for COVID-19 Status: Acu Discharge see dictation Comment Review of Relevant I have reviewed the following items papa (where applicable) has been applied. Medications: Current Medications Medications (Trade) Dose Ordered Sig/Rock Route PRN Reason Start Time Stop Time Status Last Admin Dose Admin Furosemide (Lasix) 20 mg 1X ONCE IVP 06/17/21 12:00 06/17/21 12:02 DC 06/17/21 12:12 Albuterol/ Ipratropium (Duoneb) 3 ml RTQID NEB 06/17/21 12:30 06/18/21 07:55 Doxycycline Hyclate 100 mg/ Dextrose 100 ml @ 50 mls/hr Q12HR IV 06/17/21 13:00 06/18/21 08:37 Justifications for Admission Other Justification PATRICIA FLORES III DO Jun 18, 2021 10:05
--- NOTE | 2021-06-18 10:27 | DS ---
DATE OF DISCHARGE: 06/18/2021 ADMISSION DIAGNOSIS: Asthma exacerbation. DISCHARGE DIAGNOSES: Resolving asthma exacerbation, tobacco abuse, hypertension, diabetes, overweight, gastroesophageal reflux disease, hyperlipidemia. HOSPITAL COURSE: The patient is a pleasant, middle-aged female who presented with asthma exacerbation. We admitted the patient, gave her steroids, breathing treatments, oxygen and empiric IV antibiotics. Today, I saw and examined her. She is not wheezing much anymore. She looks great, wants to go home. I plan to discharge her. I left prescriptions. DISPOSITION: Home. ACTIVITY: As tolerated. DIET: Low sodium. MEDICATIONS: Please see the MRAD. Albuterol 1 puff q.6, amlodipine 10 a day, Medrol Dosepak, doxycycline 100 p.o. b.i.d. for 1 week. DuoNeb breathing treatments, guaifenesin 600 b.i.d., insulin NovoLog 20 with meals, Levemir 25 at bedtime, vitamins, Culturelle, lisinopril 5 a day, metformin 1000 b.i.d., Singulair 10 a day, omeprazole 20 a day, potassium 10 a day and simvastatin 10 a day. TOTAL TIME: [address]: Marcelo TID: [id number]
[2021-06-18 11:00] VITALS: BP 112/66
--- NOTE | 2021-06-18 11:07 | NUR ---
SW following. Discussed with RN, discharge order for home with self care. Nebulizer needed for pt. Pt in a levy to discharge, SW had nebulizer from [facility] in SW office, faxed clinicals and order, provided Nebulizer to patient. RN notified. Pt discharged. No further SW needs.
--- NOTE | 2021-06-18 11:15 | NUR ---
Discharge Note: CYNDI LAM [address] Discharge instructions and discharge home medications reviewed with the patient and a copy given. All questions have been answered and understanding verbalized. The following instructions and handouts were given: Doxycycline 100 mg BID, Diflucan, duoneb prescription, Medrol dose pack prescriptions given to the patient Home meds as directed Nebulizer given to the patient Follow up with PCP in a week. Discontinued lines and drains: peripheral IV intact, no complications noted Patient discharged to home with self care via WC on RA at 1103 Addendum: 06/18/21 at 1240 by ARSH GRAY RN Pt requested for prednisone instead of medrol dose pack, Dr. Carla garza. Prednisone taper prescription called to [facility] at 1225.
--- NOTE | 2021-06-18 11:37 | PDOC ---
MYRNA SMITH [employer] 06/18/21 1137: CARDIO Progress Notes Date and Time Date of Service 06/18/2021 Time of Evaluation 1055 Subjective Subjective: No Chest Pain, No shortness of breath, No Palpitations Vitals Vitals Vital Signs Date Time Temp Pulse Resp B/P (MAP) Pulse Ox O2 Delivery O2 Flow Rate FiO2 06/18/21 11:00 98.5 64 16 112/66 (81) 91 Room Air 98.5 06/18/21 07:55 2.0 Weight Weight [ ] Input and Output Intake and Output Intake and Output 06/18/21 07:00 Intake Total 960 ml Balance 960 ml Intake Oral 960 ml # Voids 1 Laboratory Labs Laboratory Tests Test 06/17/21 16:42 06/17/21 20:00 06/18/21 04:45 06/18/21 07:04 Glucose (Fingerstick) 280 mg/dL (70-99) 368 mg/dL (70-99) 151 mg/dL (70-99) MA-Yzo-H-Type Natriuretic Peptide 37 pg/mL (0-124) Triglycerides Level 90 mg/dL (0-150) Cholesterol Level 179 mg/dL (0-200) LDL Cholesterol, Calculated 100 mg/dL (0-100) VLDL Cholesterol, Calculated 18 mg/dL (0-40) Non-HDL Cholesterol Calculated 118 mg/dL (0-129) HDL Cholesterol 61 mg/dL (40-60) Cholesterol/HDL Ratio 2.9 Thyroid Stimulating Hormone (TSH) 0.233 uIU/mL (0.358-3.74) Physical Exam HEENT: Neck Supple W Full Motion Chest: Symmetric LUNGS: Other (diffuse faint wheeze) Heart: S1S2, RRR (SR) Abdomen: Soft N/T Extremities: No Calf Tenderness, Other (2+ bilateral LE pitting edema) Neurology: alert, oriented, follow commands Assessment Assessment 1. Asthma exacerbation: improved 2. Acute diastolic CHF: compensated. EF and WM nml no LVH 3. HTN: controlled 4. HLP: on zocor 5. Morbid obesity 6. Possible COPD with continued tobaccoism 7. DM2: uncontrolled Recommendations 1. Continue BP regimen 2. Lasix therapy 3. Follow up in office PRN 4. Smoking cessation Justicifation of Admission Dx: Justifications for Admission: Justification of Admission Dx: Yes ESTEVAN MCKEON MD 06/19/21 1136: CARDIO Progress Notes Assessment Assessment Patient seen and examined 06/18/2021.. Agree with GENERAL MEDICAL PRACTITIONER's assessment and plan. Acute on chronic diastolic heart failure better compensated. 2D echo showed normal LV systolic function. Continue current treatment for acute asthma exacerbation Plan outpatient ischemic evaluation MYRNA SMITH APRN Jun 18, 2021 11:37 ESTEVAN MCKEON MD Jun 19, 2021 11:36
== END 2021-06-18 11:02 | disposition home or self-care (01) ==
LOC: ER 10:42 → 5 SOUTH 16:14 → INTOOBSV 16:14
PROVIDERS: ADMIT Internal Medicine; ATTEND Internal Medicine
DX: J96.01 Acute respiratory failure with hypoxia (principal); Z20.822 Contact with and (suspected) exposure to COVID-19; J45.901 Unspecified asthma with (acute) exacerbation; I11.0 Hypertensive heart disease with heart failure; I50.33 Acute on chronic diastolic (congestive) heart failure; E11.65 Type 2 diabetes mellitus with hyperglycemia; E46 Unspecified protein-calorie malnutrition; E66.9 Obesity, unspecified; K21.9 Gastro-esophageal reflux disease without esophagitis; E78.5 Hyperlipidemia, unspecified; E66.01 Morbid (severe) obesity due to excess calories; F17.210 Nicotine dependence, cigarettes, uncomplicated; Z79.4 Long term (current) use of insulin; Z87.442 Personal history of urinary calculi; Z68.42 Body mass index [BMI] 45.0-49.9, adult; Z79.84 Long term (current) use of oral hypoglycemic drugs
CPT/HCPCS: 36415; 71045; 80053; 80061; 82962; 83880; 84443; 84484; 84703; 85025; 87426; 87804; 93005; 93306; 94640; 96365; 96366; 96372; 96375; 99285; G0378; J1100; J1650; J1815; J1940; J3490; J7060; J7512; U0003; U0005; 96374; G0379